=== PATIENT | female | born 1970 | race Caucasian/White ===

== ENCOUNTER 2020-01-31 02:16 | Inpatient (IN) | payer OTHER ==
[2020-01-31] MEDS ORDERED: ONDANSETRON 4 MG/2 ML VIAL ONE ×2 (02:50→03:57)
[2020-01-31] MEDS ORDERED: NA CHLORIDE 0.9% 1,000 ML ONE (02:50)
[2020-01-31 03:29] LABS: Absolute Lymphocytes (CBC) 2.5 K/uL (0.7-4.9); Hematocrit 48.2 % (36.0-45.0); Lymphocytes % 11.4 % (15.3-44.8); MPV 9.2 fL (7.6-11.3); RBC Red Blood Cell Count 5.52 M/uL (3.86-4.86)
[2020-01-31 03:31] LABS: ALT/SGPT 27 U/L (12-78); AST/SGOT 12 U/L (15-37); Albumin 3.9 g/dL (3.4-5.0); Alkaline Phosphatase 103 U/L (45-117); BUN Blood Urea Nitrogen 17 mg/dL (7-18); Bilirubin Direct < 0.1 mg/dL (0-0.2); Bilirubin Total 0.4 mg/dL (0.2-1.0); Glucose Level 290 mg/dL (74-106); Lipase 76 U/L (73-393); Potassium 4.2 mmol/L (3.5-5.1); Protein, Total 8.1 g/dL (6.4-8.2); Sodium Level 142 mmol/L (136-145)
[2020-01-31 03:32] LABS: Bicarbonate 7 mmol/L (21-32)
[2020-01-31] MEDS ORDERED: MORPHINE 2 MG/ML SYR ONE (03:56)
[2020-01-31] MEDS ORDERED: NA CHLORIDE 0.9% 3,000 ML ONE (03:57)
--- NOTE | 2020-01-31 04:28 | ER ---
Nurse's Notes [facility] Name: Roxie Eastman Age: 49 yrs Sex: Female : 1970 Arrival Date: 01/31/2020 Time: 02:17 Bed 13 Private MD: Diagnosis: Diabetes mellitus due to underlying condition with ketoacidosis without coma;Dehydration;Abdominal tenderness Presentation: 01/30 02:20 Chief complaint: Patient states: I have been nauseated and vomiting since Thursday. The jb4 pain is in my epigastric area and radiates to my right upper abdomen. 02:20 Coronavirus screen: Client denies travel out of the [place] in the last 14 days. jb4 difficulty breathing, vomiting. Client presents with at least one sign or symptom that may indicate coronavirus-19. Standard/surgical mask placed on the client. Provider contacted for isolation considerations. Ebola Screen: No symptoms or risks identified at this time. Initial Sepsis Screen: Does the patient meet any 2 criteria? RR > 20 per min. HR > 90 bpm. Yes Does the patient have a suspected source of infection? Yes: Acute abdominal pain. Risk Assessment: Do you want to hurt yourself or someone else? Patient reports no desire to harm self or others. Onset of symptoms was January 28, 2020. Transition of care: patient was not received from another setting of care. 02:20 Method Of Arrival: Wheelchair jb4 02:20 Acuity: PEARL 3 jb4 Historical: - Allergies: 02:20 Latex, Natural Rubber; jb4 - Home Meds: 02:20 Novolin 70/30 Innolet Sub-Q [Active]; Advil 200 mg Oral tab 1 tab every 4 hours jb4 [Active]; Levemir subcutaneous subcutaneous [Active]; losartan oral oral [Active]; Klonopin Oral [Active]; - PMHx: 02:20 Diabetes - IDDM; CVA; jb4 - PSHx: 02:20 Cholecystectomy; Tonsillectomy; inguinal hernia repair as infant; amputation, 5th toe jb4 left foot; - Immunization history:: Adult Immunizations up to date. - Social history:: Smoking status: Patient reports the use of cigarette tobacco products, smokes one-half pack cigarettes per day, Patient uses alcohol, but reports only rare drinking. Patient/guardian denies using street drugs. Screenin:20 Abuse screen: Denies threats or abuse. Nutritional screening: No deficits noted. jb4 Tuberculosis screening: No symptoms or risk factors identified. Fall Risk Secondary diagnosis (15 points) impaired mobility, Gait- Weak (10 pts.). Total Au Fall Scale indicates Low Risk Score (25-44 pts). Fall prevention measures have been instituted. Side Rails Up X 2 Placed close to Nursing Station Frequent Obs/Assesments occuring Family Present and informed to notify staff if they need to leave bedside As available Patient and Family Educated on Fall Prevention Program and strategies. Assessment: 02:20 General: Appears in no apparent distress. uncomfortable, Behavior is cooperative, jb4 appropriate for age, anxious. Pain: Complains of pain in epigastric area Pain radiates to anterior aspect of right lateral abdomen and anterior aspect of left lateral abdomen. Neuro: Level of Consciousness is awake, alert, obeys commands, Oriented to person, place, time, situation. Cardiovascular: Patient's skin is warm and dry. Respiratory: Airway is patent Respiratory effort is even, labored, Respiratory pattern is symmetrical, tachypnea Breath sounds are clear bilaterally. GI: Abdomen is non-distended, obese, Bowel sounds present X 4 quads. Abd is soft and non tender X 4 quads. : No signs and/or symptoms were reported regarding the genitourinary system. EENT: No signs and/or symptoms were reported regarding the EENT system. Derm: Skin is intact, Skin is pink, warm \T\ dry. Musculoskeletal: Circulation, motion, and sensation intact. Range of motion: intact in all extremities. 03:30 Reassessment: Patient appears in no apparent distress at this time. Patient and/or jb4 family updated on plan of care and expected duration. Pain level reassessed. Patient is alert, oriented x 3, equal unlabored respirations, skin warm/dry/pink. 04:30 Reassessment: Patient appears in no apparent distress at this time. Patient and/or jb4 family updated on plan of care and expected duration. Pain level reassessed. PT remains tachypneac, respirations are labored. pt denies pain, remains at the bedside. 05:30 Reassessment: Patient appears in no apparent distress at this time. No changes from jb4 previously documented assessment. Patient and/or family updated on plan of care and expected duration. Pain level reassessed. Pt admitted to ER hold. Vital Signs: 02:20 BP 152 / 53; Pulse 116; Resp 28; Temp 97.9(O); Pulse Ox 100% on R/A; Weight 120.66 kg jb4 (R); Height 5 ft. 5 in. (165.10 cm); Pain 7/10; 03:30 BP 146 / 74; Pulse 108; Resp 24; Pulse Ox 100% on R/A; jb4 05:10 BP 150 / 119; Pulse 109; Resp 24; Pulse Ox 100% on R/A; jb4 06:00 BP 126 / 108; Pulse 106; Resp 26; Pulse Ox 100% on R/A; jb4 02:20 Body Mass Index 44.26 (120.66 kg, 165.10 cm) jb4 ED Course: 02:17 Patient arrived in ED. cl3 02:19 Preet Fox, RN is Primary Nurse. jb4 02:20 Tomer Schmidt MD is Attending Physician. tw4 02:20 Arm band placed on right wrist. jb4 02:20 Patient has correct armband on for positive identification. Placed in gown. Bed in low jb4 position. Call light in reach. Side rails up X 1. Pulse ox on. NIBP on. 02:32 Triage completed. jb4 02:50 Inserted saline lock: 20 gauge in left antecubital area, using aseptic technique. Blood rv collected. 02:50 Initial lab(s) drawn, by me, sent to lab. First set of blood cultures drawn by me. rv 03:33 Notified ED physician of a critical lab result(s). CO2 of 7, WBCs of 21.9. Dr Roxana mishra notified. 04:11 CT Abd/Pelvis - IV Contrast Only In Process Unspecified. EDMS 04:26 oNrm Newton is Hospitalizing Provider. tw4 05:12 Inserted MIDLINE G20 X 10CM, RIGHT UPPER ARM. Inserted saline lock: 22 gauge in right rv hand, using aseptic technique. 07:00 No provider procedures requiring assistance completed. Patient admitted, IV remains in jb4 place. Administered Medications: 03:00 Drug: Zofran (Ondansetron) 4 mg Route: IVP; Site: left antecubital; jb4 03:30 Follow up: Response: No adverse reaction; Nausea is decreased jb4 03:00 Drug: NS 0.9% (30 ml/kg) 30 ml/kg Route: IV; Rate: bolus; Site: left antecubital; jb4 06:05 Follow up: IV Status: Infusion continued upon admission; IV Intake: 2000ml jb4 03:50 Drug: Zofran (Ondansetron) 4 mg Route: IVP; Site: left antecubital; jb4 04:20 Follow up: Response: No adverse reaction; Nausea is decreased jb4 03:52 Drug: morphine 2 mg Route: IVP; Site: left antecubital; jb4 04:20 Follow up: Response: No adverse reaction; Pain is decreased; RASS: Alert and Calm (0) jb4 03:57 Not Given (Other Intervention Used): NS 0.9% 1000 ml IV at 1 bolus Per protocol; 1000 jb4 mL bolus 05:12 Drug: Insulin Drip - (Insulin Regular Human 100 units, NS 0.9% 100 ml) {Co-Signature: 4 rv (Sid Irwin RN).} Route: IV; Rate: calculated rate; Site: right hand; 06:04 Follow up: IV Status: Infusion continued upon admission jb4 Intake: 06:05 IV: 2000ml; Total: 2000ml. jb4 Outcome: 04:28 Decision to Hospitalize by Provider. tw4 07:00 Admitted to ER Hold. Please see [facility] for further documentation. jb4 07:00 Condition: improved 07:00 Discharge instructions given to patient, family, Instructed on the need for admit. 07:50 Patient left the ED. aa5 Signatures: Dispatcher [employer] EDMS Jessenia Parr RN RN bb Promise Fleming RN RN aa5 Preet Fox RN RN jb4 Wadley, Terrence, MD MD Sid Rosario RN RN rv Lewis, Charde cl3 Sid ly Corrections: (The following items were deleted from the chart) 03:57 03:00 NS 0.9% 1000 ml IV at 1 bolus in left antecubital jb4 jb4 06:05 06:04 IV Status: Infusion continued upon admission jb4 jb4 08:02 07:55 Patient left the ED. aa5 aa5
--- NOTE | 2020-01-31 04:28 | EDPHYS ---
Physician Documentation [facility] Name: Roxie Eastman Age: 49 yrs Sex: Female : 1970 Arrival Date: 01/31/2020 Time: 02:17 Bed 13 Private MD: ED Physician Tomer Schmidt HPI: 01/30 03:02 This 49 yrs old Female presents to ER via Wheelchair with complaints of tw4 Shortness Of Breath, Vomiting. 03:02 The patient has shortness of breath at rest. Onset: The symptoms/episode began/occurred tw4 just prior to arrival, today. Duration: The symptoms are continuous, and are unchanged since they started. The patient's shortness of breath has no apparent modifying factors. Severity of symptoms: At their worst the symptoms were moderate in the emergency department the symptoms are unchanged. Historical: - Allergies: 02:20 Latex, Natural Rubber; jb4 - Home Meds: 02:20 Novolin 70/30 Innolet Sub-Q [Active]; Advil 200 mg Oral tab 1 tab every 4 hours jb4 [Active]; Levemir subcutaneous subcutaneous [Active]; losartan oral oral [Active]; Klonopin Oral [Active]; - PMHx: 02:20 Diabetes - IDDM; CVA; jb4 - PSHx: 02:20 Cholecystectomy; Tonsillectomy; inguinal hernia repair as infant; amputation, 5th toe jb4 left foot; - Immunization history:: Adult Immunizations up to date. - Social history:: Smoking status: Patient reports the use of cigarette tobacco products, smokes one-half pack cigarettes per day, Patient uses alcohol, but reports only rare drinking. Patient/guardian denies using street drugs. ROS: 03:02 Constitutional: Negative for fever, chills, and weight loss, Eyes: Negative for injury, tw4 pain, redness, and discharge, Cardiovascular: Negative for chest pain, palpitations, and edema, Abdomen/GI: Negative for abdominal pain, nausea, vomiting, diarrhea, and constipation, Back: Negative for injury and pain, MS/Extremity: Negative for injury and deformity, Skin: Negative for injury, rash, and discoloration, Neuro: Negative for headache, weakness, numbness, tingling, and seizure. 03:02 Respiratory: Positive for shortness of breath, Negative for cough, dyspnea on exertion, hemoptysis, orthopnea, pleurisy. Exam: 03:02 Constitutional: This is a well developed, well nourished patient who is awake, alert, tw4 and in no acute distress. Head/Face: Normocephalic, atraumatic. Chest/axilla: Normal chest wall appearance and motion. Nontender with no deformity. No lesions are appreciated. Cardiovascular: Regular rate and rhythm with a normal S1 and S2. No gallops, murmurs, or rubs. Normal PMI, no JVD. No pulse deficits. Abdomen/GI: Soft, non-tender, with normal bowel sounds. No distension or tympany. No guarding or rebound. No evidence of tenderness throughout. Back: No spinal tenderness. No costovertebral tenderness. Full range of motion. Skin: Warm, dry with normal turgor. Normal color with no rashes, no lesions, and no evidence of cellulitis. MS/ Extremity: Pulses equal, no cyanosis. Neurovascular intact. Full, normal range of motion. Neuro: Awake and alert, GCS 15, oriented to person, place, time, and situation. Cranial nerves II-XII grossly intact. Motor strength 5/5 in all extremities. Sensory grossly intact. Cerebellar exam normal. Normal gait. Vital Signs: 02:20 BP 152 / 53; Pulse 116; Resp 28; Temp 97.9(O); Pulse Ox 100% on R/A; Weight 120.66 kg jb4 (R); Height 5 ft. 5 in. (165.10 cm); Pain 7/10; 03:30 BP 146 / 74; Pulse 108; Resp 24; Pulse Ox 100% on R/A; jb4 05:10 BP 150 / 119; Pulse 109; Resp 24; Pulse Ox 100% on R/A; jb4 06:00 BP 126 / 108; Pulse 106; Resp 26; Pulse Ox 100% on R/A; jb4 02:20 Body Mass Index 44.26 (120.66 kg, 165.10 cm) 4 MDM: 02:21 Patient medically screened. tw4 01/30 02:22 Order name: Basic Metabolic Panel 4 01/30 02:22 Order name: CBC with Diff 4 01/30 02:22 Order name: Hepatic Function; Complete Time: 04:25 tw4 01/30 02:22 Order name: Lipase; Complete Time: 03:33 4 01/30 02:22 Order name: COVID-19 4 01/30 02:22 Order name: Flu; Complete Time: 04:25 4 01/30 02:22 Order name: Strep; Complete Time: 04:25 4 01/30 02:22 Order name: Basic Metabolic Panel; Complete Time: 03:33 EDMS 01/30 03:33 Interpretation: Normal except: GFR 36; CRE 1.53; GLUC 290; CO2 7; CL 111. [facility] 01/30 02:22 Order name: CBC with Automated Diff EDMS 01/30 03:34 Interpretation: Normal except: WBC 21.9; RBC 5.52; HGB 15.4; HCT 48.2; MCV 87.2; LYM% tw4 11.4; SAUMYA% 84.2; PLT 428; MCHC 31.9; NEUT A 18.4. 01/30 02:54 Order name: Blood Culture Adult (2) [facility] 01/30 02:54 Order name: Lactate; Complete Time: 03:34 [facility] 01/30 03:34 Interpretation: Within normal limits. [facility] 01/30 03:33 Order name: Acetone, Serum; Complete Time: 04:24 [facility] 01/30 04:22 Order name: Throat Culture [facility] 01/30 04:25 Order name: ABG; Complete Time: 05:19 [facility] 01/30 03:21 Order name: CT Abd/Pelvis - IV Contrast Only [facility] 01/30 04:28 Order name: CXR XRAY [facility] 01/30 05:21 Order name: Glucose, Ancillary Testing; Complete Time: 05:21 [facility] 01/30 05:22 Order name: Manual Differential EDND 01/30 06:02 Order name: Urine Dipstick--Ancillary (enter results) 2 01/30 06:04 Order name: SARS-COV-2 RT PCR EDND 01/30 06:08 Order name: Urine Dipstick-Ancillary [facility] 01/30 06:15 Order name: Glucose, Ancillary Testing EDND 01/30 07:15 Order name: Glucose, Ancillary Testing EDND 01/30 07:52 Order name: RAD EDND 01/30 02:22 Order name: IV Saline Lock; Complete Time: 02:36 [facility] 01/30 02:22 Order name: Labs collected and sent; Complete Time: 02:36 4 01/30 02:22 Order name: Document PUI#; Complete Time: 02:36 4 01/30 02:22 Order name: Droplet/Contact Precautions; Complete Time: 02:36 4 01/30 02:22 Order name: Notify [facility] [phone]/ ; Complete Time: 02:36 4 01/30 02:22 Order name: O2 Per Protocol; Complete Time: 02:36 4 01/30 05:10 Order name: Urine Dipstick-Ancillary (obtain specimen); Complete Time: 06:04 la1 Administered Medications: 03:00 Drug: Zofran (Ondansetron) 4 mg Route: IVP; Site: left antecubital; jb4 03:30 Follow up: Response: No adverse reaction; Nausea is decreased jb4 03:00 Drug: NS 0.9% (30 ml/kg) 30 ml/kg Route: IV; Rate: bolus; Site: left antecubital; jb4 06:05 Follow up: IV Status: Infusion continued upon admission; IV Intake: 2000ml jb4 03:50 Drug: Zofran (Ondansetron) 4 mg Route: IVP; Site: left antecubital; jb4 04:20 Follow up: Response: No adverse reaction; Nausea is decreased jb4 03:52 Drug: morphine 2 mg Route: IVP; Site: left antecubital; jb4 04:20 Follow up: Response: No adverse reaction; Pain is decreased; RASS: Alert and Calm (0) jb4 03:57 Not Given (Other Intervention Used): NS 0.9% 1000 ml IV at 1 bolus Per protocol; 1000 jb4 mL bolus 05:12 Drug: Insulin Drip - (Insulin Regular Human 100 units, NS 0.9% 100 ml) {Co-Signature: jb4 rv (Sid Irwin RN).} Route: IV; Rate: calculated rate; Site: right hand; 06:04 Follow up: IV Status: Infusion continued upon admission jb4 Disposition: 01/31/20 04:28 Hospitalization ordered by Norm Newton for Inpatient Admission. Preliminary diagnosis are Diabetes mellitus due to underlying condition with ketoacidosis without coma, Dehydration, Abdominal tenderness. - Bed requested for Intensive Care Unit. - Status is Inpatient Admission. aa5 - Condition is Fair. - Problem is an ongoing problem. - Symptoms have worsened. Signatures: Dispatcher [employer] EDPromise Keith, RN RN aa5 Nadeem Connelly, TRANSPORTATION AGENT-C TRANSPORTATION AGENT-Cla1 Preet Fox RN RN jb4 Tomer Schmidt MD MD tw4 Sid Irwin RN rv Corrections: (The following items were deleted from the chart) 07:55 04:28 Hospitalization Ordered by Norm Newton for Inpatient Admission. Preliminary aa5 diagnosis is Diabetes mellitus due to underlying condition with ketoacidosis without coma; Dehydration; Abdominal tenderness. Bed requested for Intensive Care Unit. Status is Inpatient Admission. Condition is Fair. Problem is an ongoing problem. Symptoms have worsened. tw4
[2020-01-31 04:52] LABS: Arterial Blood Carboxyhemoglob 0.9 % (0-1.5); Blood Gas Oxyhemoglobin 95.2 % (94-97); Blood O2 Saturation 97.3 % (92-98.5)
[2020-01-31] MEDS ORDERED: NA CHLORIDE 0.9% 100 ML IV ONE (05:03)
[2020-01-31] MEDS ORDERED: INSULIN -REGULAR HUMAN 50 UNIT/0.5 ML ML ONE (05:03)
[2020-01-31 05:22] LABS: Blood Morphology Comment NOT SEEN (NOT SEEN); Platelet Estimate INCR
[2020-01-31] MEDS ORDERED: INSULIN -REGULAR HUMAN 100 UNIT in NA CHLORIDE 0.9% 100 ML IV SCH (05:28)
--- NOTE | 2020-01-31 05:31 | P.HP ---
Certification for Inpatient Patient admitted to: Inpatient With expected LOS: >2 Midnights Patient will require the following post-hospital care: None Practitioner: I am a practitioner with admitting privileges, knowledge of patient current condition, hospital course, and medical plan of care. Services: Services provided to patient in accordance with Admission requirements found in Title 42 Section 412.3 of the Code of Federal Regulations <Nadeem Connelly - Last Filed: 01/31/20 05:27> Patient History Date of Service: 01/31/20 Primary Care Provider: Dr. Romano Reason for admission: DKA History of Present Illness: 49-year-old female with history of diabetes mellitus type 2-insulin dependent, hypertension, CVA presents emergency department for malaise, with a large eating, vomiting, abdominal pain. Patient reports that she has been out of her insulin for the last few days. Vomiting started today. Patient with Kussmaul respirations, appears very dry. Lab significant for anion gap of 24, sodium 142, potassium 4.2, CO2 is 7, creatinine 1.53 GFR 36, BUN 17. CBC shows elevated white blood cell count at 21.9, hemoglobin and hematocrit both elevated at 15.4 and 40[address] abdomen pelvis due to a abdominal pain which did not show any acute findings, chest x-ray unremarkable. Urinalysis pending the patient is without any urinary symptoms. Lactate 2.0, believe that leukocytosis is combination of volume contraction and reactive leukocytosis. Patient started on insulin drip in the emergency department, given 2 L normal saline bolus. ED provider wishes to admit patient for further evaluation and management. When I saw the patient in the emergency department she is awake, alert, oriented x3. Patient tachypneic with Kussmaul respirations, skin extremely dry. Patient mildly tachycardic heart rate 110 sinus rhythm. patient be admitted to the intensive care unit for further management. 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 Psychosocial/ Personal History: Patient lives with her - Family History Father -: GI disease - Social History Smoking Status: Current every day smoker Counseled patient to stop smoking for: less than 10 minutes Smoking therapy provided: Yes Alcohol use: Yes CD- Drugs: No Caffeine use: Yes Place of Residence: Home <Nadeem Connelly - Last Filed: 01/31/20 05:27> Date of Service: 01/31/20 <raiza yeung - Last Filed: 01/31/20 15:35> Allergies latex Allergy (Verified 01/13/17 21:31) Hives Home Medications: Metformin HCl 1,000 mg PO BIDWM 01/13/17 Clopidogrel Bisulfate [Plavix*] 75 mg PO DAILY #30 tablet 01/15/17 Cholecalciferol (Vitamin D3) [Vitamin D3] 5,000 unit PO DAILY 01/31/20 Empagliflozin [Jardiance] 25 mg PO DAILY 01/31/20 Gabapentin 600 mg PO BEDTIME 01/31/20 Insulin Glargine,Hum.rec.anlog [Lantus Solostar] 50 units SQ DAILY 01/31/20 Insulin Lispro [Humalog Kwikpen U-100] 5 units SQ TID 01/31/20 Losartan Potassium 50 mg PO DAILY 01/31/20 Review of Systems 10-point ROS is otherwise unremarkable General: Weakness, Malaise Gastrointestinal: Nausea, Vomiting, Abdominal Pain <Ndaeem Connelly - Last Filed: 01/31/20 05:27> Physical Examination - Physical Exam General: Alert, In no apparent distress, Oriented x3 HEENT: Atraumatic, Normocephalic, PERRLA, Other (Mucous membranes dry) Neck: Supple Respiratory: Clear to auscultation bilaterally, Normal air movement Cardiovascular: No edema, Regular rate/rhythm (Sinus tachycardia rate 110), Normal S1 S2 Capillary refill: <2 Seconds Gastrointestinal: Normal bowel sounds, Soft and benign Musculoskeletal: No contractures, No erythema, No tenderness Integumentary: No significant lesion, No tenderness/swelling, No erythema Neurological: Normal speech, Normal strength at 5/5 x4 extr, Normal tone, Sensation intact - Studies Laboratory Data (last 24 hrs) 01/31/20 02:50: WBC 21.9 H*, Hgb 15.4 H, Hct 48.2 H, Plt Count 428 H 01/31/20 02:50: Sodium 142, Potassium 4.2, BUN 17, Creatinine 1.53 H, Glucose 290 H, Total Bilirubin 0.4, AST 12 L, ALT 27, Alkaline Phosphatase 103, Lipase 76 Microbiology Data (last 24 hrs): 01/31/20 03:05 Throat Group A Streptococcus Rapid Screen - Final 01/31/20 03:05 Nasopharnyx Influenza Type A Antigen Screen - Final 01/31/20 03:05 Nasopharnyx Influenza Type B Antigen Screen - Final <Nadeem Connelly - Last Filed: 01/31/20 05:27> - Studies Laboratory Data (last 24 hrs) 01/31/20 02:50: WBC 21.9 H*, Hgb 15.4 H, Hct 48.2 H, Plt Count 428 H 01/31/20 02:50: Sodium 142, Potassium 4.2, BUN 17, Creatinine 1.53 H, Glucose 290 H, Total Bilirubin 0.4, AST 12 L, ALT 27, Alkaline Phosphatase 103, Lipase 76 Microbiology Data (last 24 hrs): 01/31/20 03:05 Throat Group A Streptococcus Rapid Screen - Final 01/31/20 03:05 Nasopharnyx Influenza Type A Antigen Screen - Final 01/31/20 03:05 Nasopharnyx Influenza Type B Antigen Screen - Final <raiza yeung - Last Filed: 01/31/20 15:35> Assessment and Plan - Plan Assessment Diabetes mellitus type 2-insulin dependent complicated with diabetic ketoacidosis Hypertension History of CVA Tobacco abuse Plan Diabetes mellitus type 2-insulin dependent complicated with diabetic ketoacidosis: Admit ICU, continue fluid bolus followed by maintenance fluids. Q.4h BMP. Hourly blood glucose levels. Lipid panel and A1c levels ordered. Urine and blood cultures ordered. No clear sign of infection at this time, doubt sepsis. No antibiotics initiated at this time. DVT prophylaxis Lovenox 40 mg subcutaneous once daily. Hypertension: Obtain and continue home medications as appropriate peer History of CVA: Obtain and continue home medications as appropriate peer Tobacco abuse: Counseled on need for tobacco cessation, will provide patient with nicotine patch. Discharge Plan: Home Plan to discharge in: Greater than 2 days - Advance Directives Does patient have a Living Will: No Does patient have a Durable POA for Healthcare: No - Code Status/Comfort Care Code Status Assessed: Yes (Full code) Critical Care: No Time Spent Managing Pts Care (In Minutes): 55 <Nadeem Connelly - Last Filed: 01/31/20 05:27> Physician Review: Patient Assessed, Agree with Above Assessment and Plan Physician Review Additional Text: DKA secondary to noncompliance insulin. Severe metabolic acidosis. Hypernatremia Plan: Aggressive hydration with IV fluids. Insulin drip. Monitor BMP q.4 hrs per DKA protocol. <raiza yeung - Last Filed: 01/31/20 15:35>
[2020-01-31 06:07] LABS: Urine Blood 2+ (NEG); Urine Glucose 1+ (NEG); Urine Protein 2+ (NEG)
[2020-01-31 06:15] VITALS: BMI 41.0
[2020-01-31] MEDS: NACHLORIDE 0.45% 1,000 ML IV SCH ×5 (06:40→21:28)
[2020-01-31] MEDS ORDERED: NACHLORIDE 0.45% 1,000 ML IV ONE (06:50)
--- NOTE | 2020-01-31 07:51 | RAD REPORT ---
EXAM DESCRIPTION: Hammad Single View01/31/2020 5:10 am CLINICAL HISTORY: Shortness of breath COMPARISON: 2015 FINDINGS: The lungs appear clear of acute infiltrate. The heart is normal size IMPRESSION: No acute abnormalities displayed
[2020-01-31] MEDS ORDERED: INFLUENZA VACCINE (for 3y+) 0.5 ML DOSE IMVAC ONE (08:00)
[2020-01-31] MEDS ORDERED: PNEUMOCOCCAL VACCINE 0.5 ML IMVAC ONE (08:00)
[2020-01-31 08:17] LABS: BUN Blood Urea Nitrogen 15 mg/dL (7-18); Glucose Level 197 mg/dL (74-106); HDL Cholesterol 34 mg/dL (40-60); LDL Cholesterol, Calculated 53 (<130); Potassium 3.8 mmol/L (3.5-5.1); Sodium Level 147 mmol/L (136-145)
[2020-01-31 08:19] LABS: Bicarbonate 6 mmol/L (21-32)
[2020-01-31] MEDS: D5 0.45 NS 1,000 ML IV SCH ×2 (08:23→12:08)
[2020-01-31] MEDS: ENOXAPARIN 40 MG/0.4 ML SQ SCH (08:23)
[2020-01-31] MEDS: NICOTINE 21 MG/PAT TD SCH (08:24)
[2020-01-31] MEDS ORDERED: ENOXAPARIN 40 MG/0.4 ML SQ ONE (08:32)
[2020-01-31] MEDS ORDERED: D5 0.45 NS 1,000 ML IV ONE (08:33)
[2020-01-31] MEDS ORDERED: KCL 20 MEQ/100 mL IVPB 20 MEQ/100 ML BAG IV SCH (10:00)
[2020-01-31] MEDS ORDERED: KCL 20 MEQ/100 mL IVPB 20 MEQ/100 ML BAG IV ONE (10:35)
[2020-01-31 12:21] LABS: BUN Blood Urea Nitrogen 14 mg/dL (7-18); Glucose Level 157 mg/dL (74-106); Magnesium 2.3 mg/dL (1.8-2.4); Phosphorus 2.6 mg/dL (2.5-4.9); Potassium 4.3 mmol/L (3.5-5.1); Sodium Level 145 mmol/L (136-145)
[2020-01-31 12:34] LABS: Bicarbonate 8 mmol/L (21-32)
[2020-01-31] MEDS: D5W 1,000 ML with NA BICARB 8.4% 100 MEQ IV SCH ×4 (12:59→20:30)
--- NOTE | 2020-01-31 14:40 | RAD REPORT ---
EXAM DESCRIPTION: CT - Abdomen Pelvis W Contrast - 01/31/2020 7:08 am CLINICAL HISTORY: The patient is 49 years old and is Female; ABD PAIN TECHNIQUE: Axial computed tomography images of the abdomen and pelvis with intravenous contrast. S agittal and coronal reformatted images were created and reviewed. This CT exam was performed using one or more of the following dose reduction techniques: automated exposure control, adjustment of t he mA and/or kV according to patient size, and/or use of iterative reconstruction technique. COMPARISON: No relevant prior studies available. FINDINGS: LUNG BASES: Unremarkable. No mass. No consolidation. ABDOMEN: LIVER: The liver is diffusely fatty. GALLBLADDER AND BILE DUCTS: Surgical clips are present in the right upper quadrant, consistent wi th previous cholecystectomy. PANCREAS: The pancreas is atrophic. SPLEEN: Unremarkable. ADRENALS: Unremarkable. No mass. KIDNEYS AND URETERS: Unremarkable. The kidneys enhance symmetrically. No obstructing renal or ure teral calculus is seen. No hydronephrosis or hydroureter. No perinephric fluid or stranding. STOMACH AND BOWEL: The stomach is distended with fluid. The small bowel is relatively normal in c aliber. A moderate amount stool is present throughout the colon. A few scattered colonic diverticula are present without surrounding inflammation. There is no mucosal thickening or evidence of bowel obs truction. PELVIS: APPENDIX: The appendix is normal in caliber without surrounding inflammation. BLADDER: Unremarkable. No mass. REPRODUCTIVE: Unremarkable as visualized. ABDOMEN and PELVIS: INTRAPERITONEAL SPACE: Unremarkable. No free air. No significant fluid collection. BONES/JOINTS: No acute fracture. Minimal degenerative change of the spine is present. SOFT TISSUES: The soft tissues are normal. VASCULATURE: Unremarkable. No abdominal aortic aneurysm. LYMPH NODES: Unremarkable. No enlarged lymph nodes. IMPRESSION 1. Colonic diverticulosis. 2. Normal appendix. Electronically signed by: Brianne Doss MD 01/31/2020 4:25 AM BARRATTE OPERATOR Due to temporary technical issues with the PACS/Fluency reporting system, reports are being signed by the in house radiologists without review as a courtesy to insure prompt reporting. The interpreting radiologist is fully responsible for the content of the report.
--- NOTE | 2020-01-31 15:37 | P.PN ---
Date of Service: 01/31/20 Patient seen and examined. She is awake and alert. Mild distress noted. Serum bicarb level is still low. Continue insulin drip. IV fluids changed to D5 + bicarb. Continue to monitor BMP q.4 hrs.
[2020-01-31 15:54] LABS: BUN Blood Urea Nitrogen 13 mg/dL (7-18); Glucose Level 114 mg/dL (74-106); Potassium 3.6 mmol/L (3.5-5.1); Sodium Level 145 mmol/L (136-145)
[2020-01-31 15:55] LABS: Bicarbonate 10 mmol/L (21-32)
[2020-01-31] MEDS: CEFTRIAXONE/SWI 1gm 1 GM/10 ML SYR IV SCH (20:53)
[2020-01-31] MEDS ORDERED: CEFTRIAXONE/SWI 1gm 1 GM/10 ML SYR ONE (21:01)
[2020-01-31 21:27] LABS: Potassium 3.3 mmol/L (3.5-5.1)
[2020-01-31] MEDS: KCL 20 MEQ/100 mL IVPB 20 MEQ/100 ML BAG IV SCH (22:53)
[2020-01-31] MEDS ORDERED: KCL 20 MEQ/100 mL IVPB 40 MEQ/200 ML BAG IV ONE (23:02)
[2020-01-31] MEDS ORDERED: FAMOTIDINE 20 MG/2 ML VIAL IV ONE ×2 (23:33→23:45)
[2020-02-01] MEDS: KCL 20 MEQ/100 mL IVPB 20 MEQ/100 ML BAG IV SCH ×3 (00:33→05:01)
[2020-02-01 01:25] LABS: Potassium 3.1 mmol/L (3.5-5.1)
[2020-02-01] MEDS: NACHLORIDE 0.45% 1,000 ML IV SCH ×3 (01:28→18:05)
[2020-02-01] MEDS ORDERED: D5 0.45 NS 1,000 ML IV ONE (02:57)
[2020-02-01] MEDS ORDERED: KCL 20 MEQ/100 mL IVPB 20 MEQ/100 ML BAG IV ONE ×2 (02:57→02:59)
[2020-02-01] MEDS: D5 0.45 NS 1,000 ML IV SCH ×2 (03:12→09:40)
[2020-02-01] MEDS ORDERED: MORPHINE 2 MG/ML SYR IV ONE (03:14)
[2020-02-01] MEDS: ONDANSETRON 4 MG/2 ML VIAL IV PRN (03:22)
[2020-02-01] MEDS ORDERED: ONDANSETRON 4 MG/2 ML VIAL ONE (03:34)
[2020-02-01] MEDS ORDERED: MORPHINE 2 MG/ML SYR ONE (03:34)
[2020-02-01 05:32] LABS: Absolute Lymphocytes (CBC) 1.9 K/uL (0.7-4.9); Hematocrit 39.2 % (36.0-45.0); Lymphocytes % 15.5 % (15.3-44.8); MPV 8.9 fL (7.6-11.3); RBC Red Blood Cell Count 4.68 M/uL (3.86-4.86)
[2020-02-01 05:40] LABS: Magnesium 2.1 mg/dL (1.8-2.4); Potassium 3.5 mmol/L (3.5-5.1)
[2020-02-01 06:39] LABS: Blood Morphology Comment NOT SEEN (NOT SEEN); Platelet Estimate ADEQ; White Blood Cell Scan OK (OK)
[2020-02-01] MEDS ORDERED: POTASSIUM PHOS IN 0.9 % NACL 15 MMOL/250 ML BAG IV ONE (07:30)
[2020-02-01] MEDS ORDERED: NICOTINE 21 MG/PAT TD ONE (07:49)
[2020-02-01] MEDS ORDERED: FAMOTIDINE 20 MG/2 ML VIAL IV ONE (07:50)
[2020-02-01] MEDS ORDERED: ENOXAPARIN 40 MG/0.4 ML SQ ONE (07:50)
[2020-02-01] MEDS: FAMOTIDINE 20 MG/2 ML VIAL IV SCH ×2 (08:01→20:55)
[2020-02-01] MEDS: ENOXAPARIN 40 MG/0.4 ML SQ SCH (08:01)
[2020-02-01] MEDS: NICOTINE 21 MG/PAT TD SCH (08:01)
[2020-02-01] MEDS: CEFTRIAXONE/SWI 1gm 1 GM/10 ML SYR IV SCH (08:22)
[2020-02-01] MEDS ORDERED: CEFTRIAXONE/SWI 1gm 1 GM/10 ML SYR ONE (08:27)
[2020-02-01 09:50] LABS: Potassium 3.3 mmol/L (3.5-5.1)
[2020-02-01] MEDS ORDERED: GLUCAGON 1 MG/VIAL IM PRN (09:55)
[2020-02-01] MEDS ORDERED: D50W 25 GM/50 ML SYRINGE/VIAL IV PRN (09:55)
[2020-02-01] MEDS: INSULIN GLARGINE 100 UNITS/ML SQ SCH (10:13)
--- NOTE | 2020-02-01 11:28 | P.PN ---
Subjective Date of Service: 02/01/20 Primary Care Provider: Dr. Romano Chief Complaint: DKA Patient states she feels much better today. She was complaining of hunger. He also reports soreness in her throat from repeated vomiting. Anion gap has closed. Leukocytosis has also significantly decreased and almost resolved. UA: No evidence of UTI. Physical Examination - Vital Signs Temperature: 98.2 F Blood Pressure: 110/78 Pulse: 92 Respirations: 20 Pulse Ox (%): 98 - Physical Exam General: Alert, In no apparent distress HEENT: Mucous membr. moist/pink Neck: Supple, JVD not distended Respiratory: Clear to auscultation bilaterally, Normal air movement Cardiovascular: No edema, Regular rate/rhythm, Normal S1 S2 Capillary refill: <2 Seconds Gastrointestinal: Normal bowel sounds, Soft and benign, Non-distended, No tenderness Musculoskeletal: No swelling, No erythema Integumentary: No rashes Neurological: Other (Nonfocal.) Assessment And Plan - Current Problems (Diagnosis) (1) DKA (diabetic ketoacidoses) Current Visit: Yes Status: Acute (2) Metabolic acidosis Current Visit: Yes Status: Acute (3) Morbid obesity with BMI of 40.0-44.9, adult Current Visit: No Status: Chronic - Plan Anion gap closed. Transition to subcutaneous insulin-Lantus insulin and insulin sliding scale. Start ADA diet. Continue IV hydration Continue empiric IV Rocephin Blood cultures: No growth. Urine culture: Mixed growth. Continue to monitor blood chemistry.
[2020-02-01] MEDS: INSULIN -REGULAR HUMAN 50 UNIT/0.5 ML ML SQ SCH ×3 (12:09→20:53)
[2020-02-01] MEDS ORDERED: INSULIN -REGULAR HUMAN 50 UNIT/0.5 ML ML ONE (12:15)
[2020-02-01] MEDS ORDERED: PHENOL 1.4% ORAL SPRAY 180ML MM PRN (12:28)
[2020-02-01 13:25] LABS: Potassium 3.6 mmol/L (3.5-5.1)
[2020-02-01] MEDS: GABAPENTIN 300 MG CAP PO SCH (20:54)
[2020-02-02 00:56] LABS: Potassium 3.1 mmol/L (3.5-5.1)
[2020-02-02] MEDS: POTASSIUM 25 MEQ EFFERV TAB PO ONE ×2 (01:25→01:51)
[2020-02-02] MEDS: NACHLORIDE 0.45% 1,000 ML IV SCH ×3 (01:52→21:31)
[2020-02-02] MEDS: ONDANSETRON 4 MG/2 ML VIAL IV PRN (05:50)
[2020-02-02 06:08] LABS: Absolute Lymphocytes (CBC) 2.4 K/uL (0.7-4.9); Basophils % 2.2 % (0-1.3); Hematocrit 42.4 % (36.0-45.0); Lymphocytes % 34.2 % (15.3-44.8); MPV 8.8 fL (7.6-11.3)
[2020-02-02 06:48] LABS: Magnesium 2.1 mg/dL (1.8-2.4); Phosphorus 1.5 mg/dL (2.5-4.9)
[2020-02-02] MEDS: INSULIN -REGULAR HUMAN 50 UNIT/0.5 ML ML SQ SCH ×4 (07:30→20:54)
[2020-02-02] MEDS: NICOTINE 21 MG/PAT TD SCH (09:00)
[2020-02-02] MEDS: PANTOPRAZOLE 40MG TABLET PO SCH (09:02)
[2020-02-02] MEDS: CLOPIDOGREL 75 MG TABLET PO SCH (09:03)
[2020-02-02] MEDS: INSULIN GLARGINE 100 UNITS/ML SQ SCH (09:03)
[2020-02-02] MEDS: FAMOTIDINE 20 MG/2 ML VIAL IV SCH (09:03)
[2020-02-02] MEDS: VITAMIN D 5,000 UNIT CAP PO SCH (09:03)
[2020-02-02] MEDS: ENOXAPARIN 40 MG/0.4 ML SQ SCH (09:03)
[2020-02-02] MEDS: CEFTRIAXONE/SWI 1gm 1 GM/10 ML SYR IV SCH (09:04)
[2020-02-02 09:31] LABS: Potassium 3.6 mmol/L (3.5-5.1)
[2020-02-02] MEDS ORDERED: POTASSIUM PHOS IN 0.9 % NACL 15 MMOL/250 ML BAG IV ONE (10:00)
--- NOTE | 2020-02-02 10:36 | P.PN ---
Subjective Date of Service: 02/02/20 Primary Care Provider: Dr. Romano Chief Complaint: DKA Subjective: Improving (Patient is improving overall except for mild acid reflux symptoms and abdominal discomfort. Her oral intake is still suboptimal.) Physical Examination - Vital Signs Temperature: 97.2 F Blood Pressure: 112/61 Pulse: 83 Respirations: 16 Pulse Ox (%): 98 - Physical Exam General: In no apparent distress, Cooperative, Obese HEENT: Atraumatic, Normocephalic, EOMI Neck: Supple Respiratory: Clear to auscultation bilaterally, Normal air movement Gastrointestinal: Normal bowel sounds, Soft and benign, Non-distended, No tenderness Musculoskeletal: No clubbing, No swelling, No contractures, No erythema, No tenderness, No warmth Neurological: Normal speech, Sensation intact, Normal affect Assessment & Plan Physician Review: Patient Assessed, Agree with Above Assessment and Plan Physician Review Additional Text: Assessment Patient is a 49 year old female with known PMH of insulin dependent diabetes mellitus admitted to the hospital for DKA secondary to insulin noncompliance. She is off insulin drip and has been transitioned to lantus. Her oral intake is still suboptimal but most importantly, she is still has some moderate metabolic acidosis. DKA Severe metabolic acidosis. UTI Hypernatremia Hypophosphatemia Plan: Continue lantus 30 units daily Titrate to home dose of 50 units daily if oral intake improves Continue insulin sliding scale Continue monitoring BMP q 4 hours as per DKA protocol. Continue ceftriaxone for UTI Replace phosphorus Anticipating discharge tomorrow if significant improvement of metabolic acidosis and oral intake Patient will not need outpatient antibiotics upon discharge
[2020-02-02] MEDS ORDERED: SODIUM PHOSPHATE 30 MM in NA CHLORIDE 0.9% 500 ML IV ONE (11:00)
[2020-02-02] MEDS: GABAPENTIN 300 MG CAP PO SCH (20:53)
[2020-02-03] MEDS: NACHLORIDE 0.45% 1,000 ML IV SCH (05:38)
[2020-02-03 06:07] LABS: Absolute Lymphocytes (CBC) 2.4 K/uL (0.7-4.9); Basophils % 1.2 % (0-1.3); MPV 8.6 fL (7.6-11.3); RBC Red Blood Cell Count 4.25 M/uL (3.86-4.86)
[2020-02-03 06:27] LABS: Magnesium 2.2 mg/dL (1.8-2.4); Phosphorus 1.9 mg/dL (2.5-4.9)
[2020-02-03] MEDS: PANTOPRAZOLE 40MG TABLET PO SCH (06:30)
[2020-02-03] MEDS ORDERED: GLUCAGON 1 MG/VIAL IM PRN (06:39)
[2020-02-03] MEDS ORDERED: D50W 25 GM/50 ML SYRINGE/VIAL IV PRN (06:39)
[2020-02-03 06:51] LABS: Potassium 3.1 mmol/L (3.5-5.1)
[2020-02-03] MEDS: INSULIN -REGULAR HUMAN 50 UNIT/0.5 ML ML SQ SCH ×2 (07:30→11:30)
[2020-02-03] MEDS ORDERED: INSULIN GLARGINE 100 UNITS/ML SQ SCH (08:00)
--- NOTE | 2020-02-03 08:35 | P.DS ---
Admission Date: 01/31/20 Discharge Date: 02/03/20 Primary Care Provider: Dr. Romano Disposition: ROUTINE DISCHARGE Discharge Condition: GOOD Reason for Admission: DKA Brief History of Present Illness: Please refer to H&P Hospital Course: Patient is a 49 year old female with known PMH of insulin dependent diabetes mellitus admitted to the hospital for DKA secondary to insulin noncompliance. She is off insulin drip and has been transitioned to lantus. She is now medically cleared. She will go home on 35 units of lantus instead of her usual dose of 50 units. Vital Signs/Physical Exam: Temp Pulse Resp BP Pulse Ox 97.5 F 78 16 134/69 97 02/03/20 04:00 02/03/20 04:00 02/03/20 04:00 02/03/20 04:00 02/03/20 04:00 General: In no apparent distress, Cooperative, Obese HEENT: Atraumatic, Normocephalic, EOMI Neck: Supple Respiratory: Clear to auscultation bilaterally, Normal air movement Cardiovascular: No edema, Normal pulses, Regular rate/rhythm, Normal S1 S2 Gastrointestinal: Normal bowel sounds, Soft and benign, Non-distended, No tenderness Musculoskeletal: No clubbing, No swelling, No contractures, No erythema, No tenderness, No warmth Neurological: Normal speech, Sensation intact, Normal affect Laboratory Data at Discharge: WBC 7.6 K/uL (4.3-10.9) 02/03/20 05:12 Hgb 12.2 g/dL (12.0-15.0) 02/03/20 05:12 Hct 35.0 % (36.0-45.0) L D 02/03/20 05:12 Plt Count 225 K/uL (152-406) D 02/03/20 05:12 Sodium 146 mmol/L (136-145) H 02/03/20 05:12 Potassium 3.1 mmol/L (3.5-5.1) L 02/03/20 05:12 BUN 5 mg/dL (7-18) L 02/03/20 05:12 Creatinine 0.72 mg/dL (0.55-1.3) 02/03/20 05:12 Glucose 110 mg/dL (74-106) H 02/03/20 05:12 Phosphorus 1.9 mg/dL (2.5-4.9) L 02/03/20 05:12 Magnesium 2.2 mg/dL (1.8-2.4) 02/03/20 05:12 Total Bilirubin 0.4 mg/dL (0.2-1.0) 01/31/20 02:50 AST 12 U/L (15-37) L 01/31/20 02:50 ALT 27 U/L (12-78) 01/31/20 02:50 Alkaline Phosphatase 103 U/L (45-117) 01/31/20 02:50 Triglycerides 274 mg/dL (<150) H 01/31/20 07:40 Cholesterol 142 mg/dL (<200) 01/31/20 07:40 HDL Cholesterol 34 mg/dL (40-60) L 01/31/20 07:40 Cholesterol/HDL Ratio 4.18 01/31/20 07:40 Lipase 76 U/L (73-393) 01/31/20 02:50 Home Medications: Metformin HCl 1,000 mg PO BIDWM 01/13/17 Clopidogrel Bisulfate [Plavix*] 75 mg PO DAILY #30 tablet 01/15/17 Cholecalciferol (Vitamin D3) [Vitamin D3] 5,000 unit PO DAILY 01/31/20 Empagliflozin [Jardiance] 25 mg PO DAILY 01/31/20 Gabapentin 600 mg PO BEDTIME 01/31/20 Insulin Lispro [Humalog Kwikpen U-100] 5 units SQ TID 01/31/20 Losartan Potassium 50 mg PO DAILY 01/31/20 Insulin Glargine Human [Lantus*] 35 units SQ DAILY WITH BREAKFAST ml 02/03/20 Followup: Ashu Romano MD [Primary Care Provider] -
[2020-02-03 08:59] VITALS: BP 119/74; TEMP 97.1
[2020-02-03] MEDS: NICOTINE 21 MG/PAT TD SCH (09:00)
[2020-02-03] MEDS: CLOPIDOGREL 75 MG TABLET PO SCH (10:01)
[2020-02-03] MEDS: VITAMIN D 5,000 UNIT CAP PO SCH (10:02)
[2020-02-03] MEDS: ENOXAPARIN 40 MG/0.4 ML SQ SCH (10:03)
[2020-02-03 14:13] VITALS: O2SAT 99
== END 2020-02-03 12:27 | disposition home or self-care (01) | DRG 638 ==
LOC: ER 02:16 → ERHOLD 04:53 → 2ND 02-01 16:20
PROVIDERS: ADMIT Internal Medicine; ATTEND Internal Medicine
DX: E11.10 Type 2 diabetes mellitus with ketoacidosis without coma (principal); E87.0 Hyperosmolality and hypernatremia; Z68.41 Body mass index [BMI] 40.0-44.9, adult; N39.0 Urinary tract infection, site not specified; E66.01 Morbid (severe) obesity due to excess calories; E86.0 Dehydration; I10 Essential (primary) hypertension; E83.39 Other disorders of phosphorus metabolism; D72.829 Elevated white blood cell count, unspecified; E11.40 Type 2 diabetes mellitus with diabetic neuropathy, unspecified; F17.210 Nicotine dependence, cigarettes, uncomplicated; T38.3X6A Underdosing of insulin and oral hypoglycemic [antidiabetic] drugs, initial encounter; Z91.040 Latex allergy status; Z79.4 Long term (current) use of insulin; Z79.899 Other long term (current) drug therapy; Z79.02 Long term (current) use of antithrombotics/antiplatelets; Z89.422 Acquired absence of other left toe(s); Z90.49 Acquired absence of other specified parts of digestive tract; Z86.73 Personal history of transient ischemic attack (TIA), and cerebral infarction without residual deficits; Z91.128 Patient's intentional underdosing of medication regimen for other reason; Z20.828 Contact with and (suspected) exposure to other viral communicable diseases
CPT/HCPCS: 36415; 71045; 74177; 80048; 80061; 80076; 81003; 82010; 82805; 82947; 83036; 83605; 83690; 83735; 83930; 84100; 84703; 85025; 87040; 87070; 87081; 87086; 87088; 87804; 99285; J0696; J1650; J1815; J2270; J2405; J3480; J7030; J7040; J7799; Q9967; U0003

== ENCOUNTER 2020-07-23 12:48 | Observation (INO) | payer OTHER ==
[2020-07-23 13:38] LABS: Urine Blood Trace-intact (Negative); Urine Glucose 2+ (Negative); Urine Protein Negative (Negative); Urine Specific Gravity 1.015 (1.005-1.030); Urine pH 5.5 (5.0-7.0)
[2020-07-23 14:39] LABS: Absolute Lymphocytes (CBC) 1.7 K/uL (0.7-4.9); Basophils % 0.3 % (0-1.3); Hematocrit 40.4 % (36.0-45.0); Lymphocytes % 10.1 % (15.3-44.8); MPV 8.8 fL (7.6-11.3); RBC Red Blood Cell Count 4.61 M/uL (3.86-4.86)
[2020-07-23 14:52] LABS: Albumin 3.5 g/dL (3.4-5.0); Bilirubin Direct 0.1 mg/dL (0-0.2); Bilirubin Total 0.5 mg/dL (0.2-1.0); Potassium 4.1 mmol/L (3.5-5.1); Protein, Total 7.2 g/dL (6.4-8.2)
[2020-07-23] MEDS ORDERED: ONDANSETRON 4 MG/2 ML VIAL ONE ×2 (14:52→16:23)
[2020-07-23] MEDS ORDERED: MEPERIDINE HCL 25 MG/ML SYR ONE (14:53)
[2020-07-23] MEDS ORDERED: NA CHLORIDE 0.9% 1,000 ML ONE ×2 (14:53→16:37)
[2020-07-23] MEDS ORDERED: Levofloxacin 750mg IV 750 MG/150 ML BAG IV ONE (14:53)
--- NOTE | 2020-07-23 14:53 | ER ---
Nurse's Notes [facility] Name: Roxie Eastman Age: 50 yrs Sex: Female : 1970 Arrival Date: 07/23/2020 Time: 12:53 Bed 5 Private MD: Diagnosis: Cutaneous abscess of buttock Presentation: 07/23 12:58 Chief complaint: Patient states: States abscess to R rectal area and buttocks since ll1 Thursday getting progressively worse. Went to her PCP and Dr. Mcguire, he sent her in for I\T\D and blood work. Reports blood and pus draining from site. No known fever. + nausea. Coronavirus screen: Client denies travel out of the [place] in the last 14 days. At this time, the client does not indicate any symptoms associated with coronavirus-19. Ebola Screen: Patient denies travel to an Ebola-affected area in the 21 days before illness onset. Initial Sepsis Screen: Does the patient meet any 2 criteria? HR > 90 bpm. No. Patient's initial sepsis screen is negative. Does the patient have a suspected source of infection? Yes: Skin breakdown/wound. Risk Assessment: Do you want to hurt yourself or someone else? Patient reports no desire to harm self or others. Onset of symptoms was July 20, 2020. 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 Last tetanus immunization: unknown, Flu vaccine is not up to date. - Social history:: Smoking status: Patient reports the use of cigarette tobacco products, smokes one-half pack cigarettes per day. Screenin:26 Abuse screen: Denies threats or abuse. Nutritional screening: No deficits noted. jd3 Tuberculosis screening: No symptoms or risk factors identified. Fall Risk Ambulatory Aid- None/Bed Rest/Nurse Assist (0 pts). Gait- Normal/Bed Rest/Wheelchair (0 pts) Mental Status- Oriented to own ability (0 pts). Total Au Fall Scale indicates No Risk (0-24 pts). Assessment: 13:00 General: Appears in no apparent distress. comfortable, Behavior is calm, cooperative, jd3 appropriate for age. Pain: Complains of pain in gluteal cleft Quality of pain is described as tender. Neuro: Level of Consciousness is awake, alert, obeys commands, Oriented to person, place, time, situation. Cardiovascular: Denies chest pain, Capillary refill < 3 seconds Patient's skin is warm and dry. Respiratory: Airway is patent Respiratory effort is even, unlabored, Respiratory pattern is regular, symmetrical, Denies cough, shortness of breath. GI: No signs and/or symptoms were reported involving the gastrointestinal system. : No signs and/or symptoms were reported regarding the genitourinary system. EENT: No signs and/or symptoms were reported regarding the EENT system. Derm: Skin is intact, Skin is dry, Skin is normal, Skin temperature is warm Reports abscess to right side of of inner gluteal cleft. Musculoskeletal: Circulation, motion, and sensation intact. Range of motion:. 14:25 Reassessment: Patient appears in no apparent distress at this time. No changes from jd3 previously documented assessment. Patient and/or family updated on plan of care and expected duration. Pain level reassessed. Patient is alert, oriented x 3, equal unlabored respirations, skin warm/dry/pink. 16:07 Reassessment: Patient appears in no apparent distress at this time. Patient and/or jd3 family updated on plan of care and expected duration. Pain level reassessed. Patient is alert, oriented x 3, equal unlabored respirations, skin warm/dry/pink. report given to OR nurse. Vital Signs: 12:58 BP 141 / 69; Pulse 106; Resp 17; Temp 99.3; Pulse Ox 98% ; Weight 110.22 kg; Height 5 ll1 ft. 5 in. (165.10 cm); Pain 9/10; 14:23 BP 113 / 66; Pulse 96; Resp 17 S; Pulse Ox 97% on R/A; jd3 16:07 BP 143 / 71; Pulse 95; Resp 17 S; Pulse Ox 98% on R/A; jd3 12:58 Body Mass Index 40.44 (110.22 kg, 165.10 cm) ll1 ED Course: 12:53 Patient arrived in ED. am2 13:00 Triage completed. ll1 13:02 Arm band placed on. ll1 13:02 Patient placed in an exam room, on a stretcher. ll1 13:03 Yevgeniy Dietrich, MARCO A is Primary Nurse. jd3 13:11 Sukhwinder Shore PA is PHCP. cp 13:11 Sukhwinder Roberts MD is Attending Physician. cp 14:21 Initial lab(s) drawn, by me, sent to lab. Inserted saline lock: 22 gauge in right jl7 forearm, using aseptic technique. Blood collected. 14:26 Patient has correct armband on for positive identification. Placed in gown. Bed in low jd3 position. Call light in reach. Side rails up X 1. Pulse ox on. NIBP on. 14:28 Urine --Ancillary Sent. mh5 14:28 Urine --Ancillary (enter results) Sent. mh5 14:28 Liver (Hepatic) Function Sent. mh5 14:29 Procalcitonin Sent. mh5 14:29 Lactate Sent. mh5 14:29 Basic Metabolic Panel Sent. mh5 14:29 CBC with Automated Diff Sent. mh5 14:29 Blood Culture Adult (2) Sent. mh5 14:29 Lactate Sent. mh5 14:29 Procalcitonin Sent. mh5 14:29 Basic Metabolic Panel Sent. mh5 14:30 CBC with Diff Sent. mh5 14:30 Hepatic Function Sent. mh5 14:30 Initial lab(s) drawn, by me, sent to lab. First set of blood cultures drawn Second set mh5 of blood cultures drawn by me, Urine collected: clean catch specimen, cloudy, EKG done, by ED staff, reviewed by Sukhwinder FIELDS. 14:31 Patient has correct armband on for positive identification. Placed in gown. Bed in low mh5 position. Call light in reach. Side rails up X 1. Warm blanket given. Pulse ox on. NIBP on. 14:32 Wound Culture Sent. mh5 14:52 Norm Newton is Hospitalizing Provider. cp 15:13 XRAY Chest (1 view) In Process Unspecified. EDMS 16:08 No provider procedures requiring assistance completed. Patient admitted, IV remains in jd3 place. Administered Medications: 14:45 Not Given (Physician Discretion): Marcaine (bupivacaine) (0.5 %) 10 ml 10 ml jd3 Infiltration once 14:45 Drug: LevaQUIN (levofloxacin) 750 mg Volume: 150 ml; Route: IVPB; Infused Over: 90 jd3 mins; Site: right forearm; 16:15 Follow up: Response: No adverse reaction; IV Status: Completed infusion jd3 14:46 Drug: Demerol (meperidine) 25 mg Route: IVP; Site: right forearm; jd3 15:40 Follow up: Response: No adverse reaction; RASS: Alert and Calm (0) jd3 14:46 Drug: NS 0.9% 1000 ml Route: IV; Rate: 1 bolus; Site: right forearm; jd3 15:40 Follow up: Response: No adverse reaction; IV Status: Completed infusion jd3 14:46 Drug: Zofran (Ondansetron) 4 mg Route: IVP; Site: right forearm; jd3 15:40 Follow up: Response: No adverse reaction jd3 14:46 Not Given (Physician Discretion): Lidocaine-Epinephrine -1%: (1:100,000) 10 ml 20 ml jd3 Infiltration once; to bedside 16:17 Drug: vancoMYCIN 1.5 grams Route: IVPB; Rate: calculated rate; Site: right forearm; jd3 16:20 Follow up: Response: No adverse reaction; IV Status: Infusion continued upon admission jd3 Outcome: 14:52 Decision to Hospitalize by Provider. cp 16:08 Condition: stable jd3 16:08 Instructed on follow up and referral plans. the need for admit. 16:24 Admitted to OR jd3 16:24 Patient left the ED. jd3 Signatures: Dispatcher [employer] EDCO Sukhwinder Shore PA PA cp Martinez, Maria 5 Braden Fong RN RN jl7 Soo Chavis Jonathon RN RN jd3 Arelis Negro RN RN ll1
--- NOTE | 2020-07-23 14:53 | EDPHYS ---
Physician Documentation [facility] Name: Roxie Eastman Age: 50 yrs Sex: Female : 1970 Arrival Date: 07/23/2020 Time: 12:53 Bed 5 Private MD: ED Physician Sukhwinder Roberts HPI: 07/23 13:35 This 50 yrs old Female presents to ER via Ambulatory with complaints of cp Abscess. 13:35 The patient presents with cellulitis of the buttocks. Description: draining. Onset: The cp symptoms/episode began/occurred 3 day(s) ago, and became worse today. Associated signs and symptoms: Pertinent positives: drainage, fever. The patient has been recently seen by a physician: Dr. Mcguire a general surgeon, with similar presenting complaints, and was sent to the [facility] Emergency Department for further evaluation. 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 Last tetanus immunization: unknown, Flu vaccine is not up to date. - Social history:: Smoking status: Patient reports the use of cigarette tobacco products, smokes one-half pack cigarettes per day. ROS: 13:40 Constitutional: Negative for body aches, chills, fever, poor PO intake. cp 13:40 Eyes: Negative for injury, pain, redness, and discharge. cp 13:40 ENT: Negative for ear pain, sore throat, difficulty swallowing, difficulty handling secretions. 13:40 Cardiovascular: Negative for chest pain. 13:40 Respiratory: Negative for cough, shortness of breath, wheezing. 13:40 Abdomen/GI: Negative for abdominal pain, nausea, vomiting, and diarrhea. 13:40 Skin: Positive for cellulitis, of the buttocks. 13:40 Neuro: Negative for altered mental status, headache, weakness. 13:40 All other systems are negative. Exam: 13:45 Constitutional: The patient appears in no acute distress, alert, awake, cp non-diaphoretic, non-toxic, well developed, well nourished, obese. 13:45 Head/Face: Normocephalic, atraumatic. cp 13:45 Eyes: Periorbital structures: appear normal, Conjunctiva: normal, no exudate, no injection, Lids and lashes: appear normal, bilaterally. 13:45 ENT: External ear(s): are unremarkable, Nose: is normal, Mouth: Lips: moist, Oral mucosa: moist, Posterior pharynx: Airway: no evidence of obstruction, patent. 13:45 Chest/axilla: Inspection: normal, Palpation: is normal, no crepitus, no tenderness. 13:45 Cardiovascular: Rate: tachycardic, Rhythm: regular. 13:45 Respiratory: the patient does not display signs of respiratory distress, Respirations: normal, no use of accessory muscles, no retractions, labored breathing, is not present, Breath sounds: are clear throughout, no decreased breath sounds, no stridor, no wheezing. 13:45 Abdomen/GI: Inspection: abdomen appears normal, Palpation: abdomen is soft and non-tender, in all quadrants. 13:45 Skin: cellulitis, that is moderate, on the right buttock, induration, that is moderate is noted, located on the right buttock. 13:45 Neuro: Orientation: to person, place \\T\\ time. Mentation: is normal, Motor: moves all fours, strength is normal. Vital Signs: 12:58 BP 141 / 69; Pulse 106; Resp 17; Temp 99.3; Pulse Ox 98% ; Weight 110.22 kg; Height 5 ll1 ft. 5 in. (165.10 cm); Pain 9/10; 14:23 BP 113 / 66; Pulse 96; Resp 17 S; Pulse Ox 97% on R/A; jd3 16:07 BP 143 / 71; Pulse 95; Resp 17 S; Pulse Ox 98% on R/A; jd3 12:58 Body Mass Index 40.44 (110.22 kg, 165.10 cm) ll1 MDM: 13:15 Patient medically screened. cp 14:30 Physician consultation: Preet Mcguire MD was contacted at 14:30, regarding patient's cp condition, wants patient admitted for surgical I\\T\\D. 15:00 Physician consultation: was contacted at 14:45, Carmen Barragan [employer] hospitalist will admit cp patient. 15:40 Data reviewed: vital signs, nurses notes, lab test result(s). 15:40 Response to treatment: the patient's symptoms have markedly improved after treatment. 07/23 13:33 Order name: Basic Metabolic Panel 07/23 13:33 Order name: CBC with Diff 07/23 13:33 Order name: Hepatic Function 07/23 13:33 Order name: Procalcitonin 07/23 13:33 Order name: Lactate 07/23 13:33 Order name: Blood Culture Adult (2) 07/23 13:34 Order name: Basic Metabolic Panel; Complete Time: 15:33 EDMS 07/23 15:33 Interpretation: Normal except: GLUC 365; GFR 57. 07/23 13:34 Order name: CBC with Automated Diff; Complete Time: 15:33 EDMS 07/23 15:34 Interpretation: Normal except: WBC 16.90; MCV 87.6; SAUMYA% 82.1; LYM% 10.1; NEUT A 13.9. 07/23 13:34 Order name: Liver (Hepatic) Function; Complete Time: 15:33 EDMS 07/23 15:34 Interpretation: Normal except: AST 9; GLOB 3.7; A/G 0.9. 07/23 13:34 Order name: Procalcitonin; Complete Time: 15:33 EDMS 07/23 15:34 Interpretation: Abnormal: Procalcitonin 0.08. 07/23 13:34 Order name: Lactate; Complete Time: 15:33 EDMS 07/23 15:34 Interpretation: Within normal limits: LAC 1.5. 07/23 13:37 Order name: Urine Dipstick-Ancillary; Complete Time: 15:33 EDMS 07/23 15:35 Interpretation: Normal except: UGLUC 2+; UKET 1+; UBLD Trace-intact. 07/23 13:40 Order name: Urine --Ancillary (enter results) 07/23 13:40 Order name: Urine --Ancillary; Complete Time: 15:33 EDMS 07/23 13:33 Order name: IV Saline Lock; Complete Time: 14:20 07/23 13:33 Order name: Labs collected and sent; Complete Time: 14:20 07/23 13:33 Order name: Urine Dipstick-Ancillary (obtain specimen); Complete Time: 14:30 cp 07/23 13:33 Order name: Urine Test (obtain specimen); Complete Time: 14:29 cp 07/23 13:54 Order name: Wound Culture 07/23 13:54 Order name: I\\T\\D Setup; Complete Time: 14:46 07/23 14:34 Order name: Glucose, Ancillary Testing; Complete Time: 15:33 EDMS 07/23 14:54 Order name: XRAY Chest (1 view); Complete Time: 15:33 cp 07/23 15:35 Interpretation: Report reviewed. 07/23 15:01 Order name: COVID-19 : Document "Date of Symptom Onset" if Symptomatic. 07/23 14:17 Order name: NPO; Complete Time: 14:20 cp Administered Medications: 14:45 Not Given (Physician Discretion): Marcaine (bupivacaine) (0.5 %) 10 ml 10 ml jd3 Infiltration once 14:45 Drug: LevaQUIN (levofloxacin) 750 mg Volume: 150 ml; Route: IVPB; Infused Over: 90 jd3 mins; Site: right forearm; 16:15 Follow up: Response: No adverse reaction; IV Status: Completed infusion jd3 14:46 Drug: Demerol (meperidine) 25 mg Route: IVP; Site: right forearm; jd3 15:40 Follow up: Response: No adverse reaction; RASS: Alert and Calm (0) jd3 14:46 Drug: NS 0.9% 1000 ml Route: IV; Rate: 1 bolus; Site: right forearm; jd3 15:40 Follow up: Response: No adverse reaction; IV Status: Completed infusion jd3 14:46 Drug: Zofran (Ondansetron) 4 mg Route: IVP; Site: right forearm; jd3 15:40 Follow up: Response: No adverse reaction jd3 14:46 Not Given (Physician Discretion): Lidocaine-Epinephrine -1%: (1:100,000) 10 ml 20 ml jd3 Infiltration once; to bedside 16:17 Drug: vancoMYCIN 1.5 grams Route: IVPB; Rate: calculated rate; Site: right forearm; jd3 16:20 Follow up: Response: No adverse reaction; IV Status: Infusion continued upon admission jd3 Disposition: 07/24 07:19 Co-signature as Attending Physician, Sukhwinder Roberts MD I agree with the assessment and [facility] plan of care. Disposition: 07/23/20 14:52 Hospitalization ordered by Norm Newton for Observation. Preliminary diagnosis is Cutaneous abscess of buttock. - Bed requested for Operating Room. - Status is Observation. jd3 - Condition is Stable. - Problem is new. - Symptoms have improved. Signatures: Dispatcher [employer] EDMT Sukhwinder Roberts MD MD cha Page, Corey, PA PA cp Davies, Jonathon RN RN jArelis Murphy RN RN ll1 Corrections: (The following items were deleted from the chart) 07/23 16:24 14:52 Hospitalization Ordered by Norm Newton for Observation. Preliminary diagnosis jd3 is Cutaneous abscess of buttock. Bed requested for Operating Room. Status is Observation. Condition is Stable. Problem is new. Symptoms have improved. cp
[2020-07-23 14:57] LABS: Urine Specific Gravity/Preg 1.015 (1.005-1.030)
[2020-07-23] MEDS ORDERED: VANCOMYCIN 1.5 GM in NA CHLORIDE 0.9% 500 ML IVPB ONE (15:00)
--- NOTE | 2020-07-23 15:23 | RAD REPORT ---
EXAM DESCRIPTION: Hammad Single View07/23/2020 3:15 pm CLINICAL HISTORY: Rectal abscess. Preop COMPARISON: 2019 FINDINGS: The lungs appear clear of acute infiltrate. The heart is normal size IMPRESSION: No acute abnormalities displayed
[2020-07-23] MEDS ORDERED: propofoL 200 MG/20 ML VIAL IV ONE (16:22)
[2020-07-23] MEDS ORDERED: FENTANYL CITR 100 MCG/2 ML ONE ×2 (16:22→17:05)
[2020-07-23] MEDS ORDERED: LIDOCAINE 2% MPF 5 ML VIAL ONE (16:22)
[2020-07-23] MEDS ORDERED: dexAMETHasone 10 MG/ML VIAL ONE (16:23)
[2020-07-23] MEDS ORDERED: KETOROLAC 30 MG/ML INJ ONE (16:23)
--- NOTE | 2020-07-23 16:26 | P.HP ---
Date of Service: 07/23/20 PC: This 42-year-old female presents emergency room with a right perirectal abscess. HPC: Patient has had this last few days. Appears to be getting bigger. Had some small drainage out of the bed still a lot of pressure in that area. She is also diabetic and has not felt well today. PMH: Diabetes PSHx: Surgery as a child SOC: Allergic to late, medication list was reviewed SYS REVIEW: No cough, wheeze, shortness of breath. No chest pain or palpitations. Denies any urinary complaints O/E awake alert stable HEENT: Not jaundice Chest: Air entry equal bilaterally ABD: Negative LOCO: Has a large perirectal abscess on the right side DATA: Elevated white cell count, elevated serum because IMPRESSION: Perirectal abscess PLAN: I will take her the operating room for incision, drainage, sharp debridement of this abscess. The risks of this procedure have been discussed. The possibility of bleeding, infection, need for further surgeries and procedures was discussed. She understands and wants us to proceed.
[2020-07-23] MEDS ORDERED: INSULIN -REGULAR HUMAN 50 UNIT/0.5 ML ML ONE (16:46)
[2020-07-23] MEDS ORDERED: GLUCAGON 1 MG/VIAL IM PRN (17:07)
--- NOTE | 2020-07-23 17:13 | P.OP ---
Preoperative diagnosis: Right-sided perirectal abscess Postoperative diagnosis: The same Primary procedure: Incision, drainage, sharp debridement of perirectal abscess Anesthesia: General Estimated blood loss: Less than 10 cc Specimen: Necrotic material not sent Operative Technique: The patient brought the operating room placed supine on the table. After the induction of adequate general anesthesia, there the patient was placed into lithotomy position. The perineal area was now prepped with a Betadine solution, she is draped in usual aseptic manner. Attention was turned towards is right perirectal abscess. We could see the area of chronic induration and a large central abscess with 2 areas that were trying to point. After inject with 0.25% Marcaine, a skin incision was made over the more lateral of these. We encounter a large abscess cavities drain some purulent foul-smelling material. The loculations on this were broken down. The 2nd area was opened using electro cautery. This obviously communicated with the of the large abscess underneath it. The wound was now curetted with a surgical curette as well as sharply debrided with a cutting surgical blade. The necrotic material was removed. A 2. Nylon was now placed into the wound and brought out more laterally. At the end of the procedure the patient was in a stable condition when sent to the recovery room. Needle sponge instrument count were correct. Complications: None Drain(s): Other (2. Nylon)
[2020-07-23] MEDS ORDERED: KETOROLAC 30 MG/ML INJ IV PRN (17:32)
[2020-07-23] MEDS ORDERED: ONDANSETRON 4 MG/2 ML VIAL IV PRN (17:32)
[2020-07-23] MEDS ORDERED: HYDROCODONE/APAP 7.5/325 MG TAB PO PRN (17:32)
[2020-07-23] MEDS ORDERED: D50W 25 GM/50 ML VIAL IV PRN (17:35)
[2020-07-23 18:05] VITALS: BP 106/57; TEMP 98.2; O2SAT 94
--- NOTE | 2020-07-23 19:57 | P.CNS ---
Date of Consult: 07/23/20 Reason for Consult: Medical Management Requesting Physician: Preet Mcguire Chief Complaint: Perirectal abscess History of Present Illness: Patient is a 50 years old female with a past medical history significant DM 2, HTN, CVA, Tobacco Abuse, who presents with complaint of right buttocks pain\swelling and redness onset 3 days ago. Patient rated pain as 9/10 and described pain as aching in quality. Patient denies any other signs and symptoms. Symptoms are aggravated by pressure and relieved by nothing. Patient decided to see her PCP who referred her to a surgeon. Patient was consequently referred to the ER for an incision and debridement. Allergies latex Allergy (Verified 01/13/17 21:31) Hives Home medications list reviewed: Yes Home Medications: Metformin HCl 1,000 mg PO BIDWM 01/13/17 Clopidogrel Bisulfate [Plavix*] 75 mg PO DAILY #30 tablet 01/15/17 Cholecalciferol (Vitamin D3) [Vitamin D3] 5,000 unit PO DAILY 01/31/20 Empagliflozin [Jardiance] 25 mg PO DAILY 01/31/20 Gabapentin 600 mg PO BEDTIME 01/31/20 Insulin Lispro [Humalog Kwikpen U-100] 5 units SQ TID 01/31/20 Losartan Potassium 50 mg PO DAILY 01/31/20 Insulin Glargine Human [Lantus*] 35 units SQ DAILY WITH BREAKFAST ml 02/03/20 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 Psychosocial/ Personal History: Patient lives with her - Family History Father Medical History: GI disease - Social History Smoking Status: Current every day smoker Alcohol use: Yes CD- Drugs: No Caffeine use: Yes Review of Systems General: Unremarkable Eyes: Unremarkable ENT: Unremarkable Respiratory: Unremarkable Cardiovascular: Unremarkable Gastrointestinal: Unremarkable Genitourinary: Unremarkable Musculoskeletal: Unremarkable Integumentary: Other (Right buttocks swelling \redness\drainage ), Unremarkable Neurological: Unremarkable Lymphatics: Unremarkable Physical Examination Temp Pulse Resp BP Pulse Ox 98.2 F 87 16 106/57 L 07/23/20 18:45 07/23/20 18:45 07/23/20 18:45 07/23/20 18:45 General: Alert, In no apparent distress, Oriented x3 HEENT: Atraumatic, Normocephalic, PERRLA, Mucous membr. moist/pink, EOMI Neck: Supple, 2+ carotid pulse no bruit, JVD not distended Respiratory: Clear to auscultation bilaterally, Normal air movement Cardiovascular: No edema, Normal pulses, Regular rate/rhythm, Normal S1 S2 Capillary refill: <2 Seconds Gastrointestinal: Normal bowel sounds, Non-distended Musculoskeletal: No clubbing, No swelling, No contractures Integumentary: No rashes, Skin breakdown, No ulcers, Other (right buttocks swelling \redness\drainage ) Neurological: Normal gait, Normal speech, Normal affect Lymphatics: No axilla or inguinal lymphadenopathy Urinary: Other (None) External genitalia: Deferred Rectal: Induration, Other Other Physical/Emotional Findings: right buttocks swelling \redness\drainage Laboratory Data (last 24 hrs) 07/23/20 14:15: WBC 16.90 H, Hgb 13.0, Hct 40.4, Plt Count 302 07/23/20 14:15: Sodium 140, Potassium 4.1, BUN 14, Creatinine 1.04, Glucose 365 H, Total Bilirubin 0.5, AST 9 L, ALT 18, Alkaline Phosphatase 92 Conclusions/Impression: Patient was not amitted to the hospital because Surgeon anticipated discharge today. Patient was seen by a surgeon and had a successful incision and debridement. Patient tolerated the procedure. Patient was discharged by surgeon. Patient instructed to follow-up with her PCP and surgeon. Patient instructed to take her home medications as directed. Critical Care: No
[2020-07-23] MEDS ORDERED: HOME MED 1 EA UNK (Insulin Lispro [Humalog Kwikpen U-100] 100 UNIT/ML Insuln.Pen) SQ SCH (21:00)
[2020-07-23] MEDS ORDERED: GABAPENTIN 300 MG CAP PO SCH (21:00)
[2020-07-24] MEDS ORDERED: PIPER/TAZO/NS 3.375gm 3.375 GM/100 ML BAG IVPB SCH (01:00)
[2020-07-24] MEDS ORDERED: INSULIN GLARGINE 100 UNITS/ML SQ SCH (08:00)
[2020-07-24] MEDS ORDERED: HOME MED 1 EA UNK (Metformin Hcl [Metformin Hcl] 1,000 MG Tablet) PO SCH (08:00)
[2020-07-24] MEDS ORDERED: HOME MED 1 EA UNK (Cholecalciferol (Vitamin D3) [Vitamin D3] 2000 UNIT Capsule) PO SCH (09:00)
[2020-07-24] MEDS ORDERED: LOSARTAN POTASSIUM 50 MG TABLET PO SCH (09:00)
[2020-07-24] MEDS ORDERED: CLOPIDOGREL 75 MG TABLET PO SCH (09:00)
[2020-07-24] MEDS ORDERED: HOME MED 1 EA UNK (Empagliflozin [Jardiance] 25 MG Tablet) PO SCH (09:00)
--- NOTE | 2020-07-24 11:15 | EKG ---
Test Date: 2020-07-23 Test Time: 14:44:51 Medical Technologist Clinical: CARLO MEASUREMENT RESULTS: Intervals: Rate: 97 OH: 110 QRSD: 88 QT: 346 QTc: 439 [place]: P: 54 OH: 110 QRS: 59 T: 48 INTERPRETIVE STATEMENTS: Sinus rhythm with short OH Otherwise normal ECG Compared to ECG 01/13/2017 20:14:10 Short OH interval now present Electronically Signed On 07-24-20 11:13:29 CDT by Ugo Hassan
== END 2020-07-23 18:45 | disposition home or self-care (01) ==
LOC: ER 12:48 → ERHOLD 17:06
PROVIDERS: ADMIT Family Medicine; ATTEND Family Medicine
PROC: 0D9P0ZZ Drainage of Rectum, Open Approach (ICD-10-PCS; principal; 2020-07-23 16:00)
DX: K61.1 Rectal abscess (principal); G47.33 Obstructive sleep apnea (adult) (pediatric); I10 Essential (primary) hypertension; Z86.73 Personal history of transient ischemic attack (TIA), and cerebral infarction without residual deficits; E11.40 Type 2 diabetes mellitus with diabetic neuropathy, unspecified; Z79.4 Long term (current) use of insulin; Z89.422 Acquired absence of other left toe(s); F17.210 Nicotine dependence, cigarettes, uncomplicated
CPT/HCPCS: 96365; 93005; 87040 ×2; 87070; 85025; 80048; 36415; 87205; 81025; 82947 ×3; 80076; 83605; 81003; 84145; 71045; 96375; 99285; 46040; J2704; J3010 ×2; J3370; J1100; J2175; J7040; J7030 ×2; J2405 ×2; 87077; 87186; G0378

== ENCOUNTER 2022-02-02 23:03 | Inpatient (IN) | payer OTHER ==
--- OUTSIDE RECORDS SUMMARY | 2022-02-02 23:07 | XMS REPORT | Continuity of Care Document ---
:1970 Author Organization [facility] t Address [address] [place] [address] [place] [id number] Care Team Providers Name Role Phone URI RODRIGUEZ Attending Clinician Unavailable DOT STOCK Attending Clinician Unavailable Payers Payer Name Policy Type Policy Number Effective Date Expiration Date [place] [address] [id number] 2020 00:00:00 Problems This patient has no known problems. Allergies, Adverse Reactions, Alerts This patient has no known allergies or adverse reactions. Medications This patient has no known medications. Procedures This patient has no known procedures. Encounters Start End Encounter Admission Attending Care Care Encounter Source Date/Time Date/Time Type Type Clinicians Facility Department ID 2020-12-13 2020-12-13 Outpatient [facility] RODRIGUEZ [id number] [place] 00:00:00 00:00:00 URIJOSEPH Crawleyol jesus 2020-11-01 2020-11-01 Outpatient [facility] 101 [id number] [place] 09:45:00 09:45:00 Seybol d 2020-11-01 2020-11-01 Outpatient [facility] 101 [id number] [place] 00:00:00 00:00:00 Seybol jesus 2020-10-31 2020-10-31 Outpatient [facility] 101 [id number] [place] 00:00:00 00:00:00 Seybol d 2020-10-25 2020-10-25 Outpatient [place] RODRIGUEZ [id number] [place] 09:30:00 09:30:00 URI Seybol jesus Results This patient has no known results.
[2022-02-03] MEDS ORDERED: VANCOMYCIN 1 GM/VIAL ONE
[2022-02-03] MEDS ORDERED: CEFEPIME 2 GM VIAL ONE
[2022-02-03] MEDS ORDERED: NA CHLORIDE 0.9% 500 ML ONE (00:01)
[2022-02-03] MEDS ORDERED: NA CHLORIDE 0.9% 3,000 ML ONE (00:01)
[2022-02-03] MEDS ORDERED: NA CHLORIDE 0.9% 100 ML IV ONE ×5 (00:01→17:21)
[2022-02-03 00:03] LABS: Absolute Lymphocytes (CBC) 2.3 K/uL (0.7-4.9); Hematocrit 47.6 % (36.0-45.0); Lymphocytes % 10.8 % (15.3-44.8); MCV 97.9 fL (80-100); MPV 8.5 fL (7.6-11.3); RBC Red Blood Cell Count 4.86 M/uL (3.86-4.86)
[2022-02-03 00:04] LABS: Protime INR 0.95
[2022-02-03 00:18] LABS: ALT/SGPT 22 U/L (12-78); AST/SGOT 5 U/L (15-37); Albumin 3.5 g/dL (3.4-5.0); Alkaline Phosphatase 165 U/L (45-117); BUN Blood Urea Nitrogen 13 mg/dL (7-18); Bilirubin Total 0.5 mg/dL (0.2-1.0); Glomerular Filtration Rate 38 ml/min (=/>90); Potassium 3.6 mmol/L (3.5-5.1); Protein, Total 8.4 g/dL (6.4-8.2); Sodium Level 135 mmol/L (136-145)
[2022-02-03 00:20] LABS: Bicarbonate < 8 mmol/L (21-32); Glucose Level 483 mg/dL (74-106)
[2022-02-03 00:44] LABS: Urine Blood 2+ (Negative); Urine Glucose 2+ (Negative); Urine Protein 2+ (Negative); Urine Specific Gravity 1.025 (1.005-1.030); Urine pH 5.5 (5.0-7.0)
[2022-02-03] MEDS ORDERED: INSULIN -REGULAR HUMAN 50 UNIT/0.5 ML ML ONE (00:49)
[2022-02-03 00:55] LABS: Arterial Blood Carboxyhemoglob 1.2 % (0-1.5); Blood O2 Saturation 94.9 % (92-98.5)
[2022-02-03 01:16] LABS: Blood Morphology Comment NOT SEEN (NOT SEEN); Platelet Estimate ADEQ
--- NOTE | 2022-02-03 01:48 | ER ---
Nurse's Notes [facility] Name: Roxie Eastman Age: 51 yrs Sex: Female : 1970 Arrival Date: 02/02/2022 Time: 23:08 Bed 3 Private MD: Diagnosis: Diabetic ketoacidosis, sepsis, cellulitis Presentation: 02/02 23:25 Chief complaint: Spouse and/or significant other states: She has been out of her kd3 diabetic medications and so i do not know how long she has not been taking the, but now she is very confused and talking nonsense. Coronavirus screen: Vaccine status: Patient reports being unvaccinated. Ebola Screen: No symptoms or risks identified at this time. Initial Sepsis Screen: Does the patient meet any 2 criteria? RR > 20 per min. HR > 90 bpm. Does the patient have a suspected source of infection? No. Patient's initial sepsis screen is negative. Risk Assessment: Do you want to hurt yourself or someone else? Patient reports no desire to harm self or others. Onset of symptoms was February 02, 2022. 23:25 Method Of Arrival: Wheelchair kd3 23:25 Acuity: PEARL 2 jb4 Triage Assessment: 23:27 General: Appears uncomfortable, Behavior is agitated, uncooperative. General: Smells of kd3 ketones. Pain: Denies pain. Neuro: Level of Consciousness is confused, Oriented to person, place. Cardiovascular: Patient's skin is warm and dry. Respiratory: Airway is patent Respiratory effort is labored. Historical: - Allergies: 23:27 Latex, Natural Rubber; kd3 23:27 Lisinopril; kd3 23:27 Victoza 2-Shyam; kd3 - PMHx: 23:27 CVA; Diabetes - IDDM; UTI; dka; kd3 - Immunization history:: Adult Immunizations up to date. - Social history:: Smoking status: unknown. Screenin:29 Abuse screen: Denies threats or abuse. Denies injuries from another. Nutritional kd3 screening: No deficits noted. Tuberculosis screening: No symptoms or risk factors identified. Fall Risk IV access (20 points). Mental Status- Overestimates/Forgets Limitations (15 pts.). Assessment: 23:15 General: Appears distressed, ill, obese. Pain: Unable to use pain scale. Patient is jb4 disoriented. Neuro: Level of Consciousness is awake, listless, Oriented to person. Cardiovascular: Patient's skin is warm and dry. Respiratory: Airway is patent Respiratory effort is even, labored, Respiratory pattern is symmetrical, [place]. GI: No signs and/or symptoms were reported involving the gastrointestinal system. : No signs and/or symptoms were reported regarding the genitourinary system. EENT: No signs and/or symptoms were reported regarding the EENT system. Derm: Skin is intact, Skin is pink, warm \T\ dry. Musculoskeletal: Circulation, motion, and sensation intact. Range of motion: intact in all extremities. 02/03 00:15 Reassessment: Patient appears in no apparent distress at this time. No changes from jb4 previously documented assessment. Patient and/or family updated on plan of care and expected duration. Pain level reassessed. 01:15 Reassessment: Patient appears in no apparent distress at this time. Pt remains awake jb4 and listless. Respirations unchanged. 02:15 Reassessment: Patient appears in no apparent distress at this time. Pt resting in bed jb4 eyes closed, respirations are unchanged. 03:15 Reassessment: Patient appears in no apparent distress at this time. No changes from jb4 previously documented assessment. Patient and/or family updated on plan of care and expected duration. Pain level reassessed. 04:10 Reassessment: Patient appears in no apparent distress at this time. No changes from jb4 previously documented assessment. Patient and/or family updated on plan of care and expected duration. Pain level reassessed. 05:00 Reassessment: Patient appears in no apparent distress at this time. No changes from jb4 previously documented assessment. Patient and/or family updated on plan of care and expected duration. Pain level reassessed. 06:00 Reassessment: Patient appears in no apparent distress at this time. Patient and/or jb4 family updated on plan of care and expected duration. Pain level reassessed. Patient is alert, oriented x 3, equal unlabored respirations, skin warm/dry/pink. Vital Signs: 02/02 23:25 BP 139 / 61; Pulse 126; Resp 27; Temp 99.3(TE); Pulse Ox 100% on R/A; Weight 102.5 kg; kd3 02/03 00:00 BP 173 / 66; Pulse 120; Resp 28; Pulse Ox 100% on R/A; jb4 01:00 BP 163 / 61; Pulse 107; Resp 26; Pulse Ox 98% on R/A; jb4 02:00 BP 112 / 64; Pulse 103; Resp 26; Pulse Ox 93% on R/A; jb4 03:19 BP 101 / 51; Pulse 101; Resp 25; Pulse Ox 93% ; jb4 04:00 BP 112 / 62; Pulse 97; Resp 24; Pulse Ox 92% on R/A; jb4 05:47 BP 97 / 55; Pulse 99; Resp 22; Pulse Ox 93% on R/A; jb4 06:00 BP 97 / 45; Pulse 97; Resp 24; Pulse Ox 94% on R/A; jb4 05:47 Nadeem Pachecoluis notified blood pressures are now trending down, b/p \T\ 0530 86/41. recieved jb4 verbal order for 500ML bolus of LR. ED Course: 02/02 23:08 Patient arrived in ED. ja2 23:27 Triage completed. kd3 23:27 Arm band placed on right wrist. kd3 23:30 Inserted saline lock: 22 gauge in right hand, using aseptic technique. kd3 23:35 Inserted saline lock: 18 gauge in left antecubital area, using aseptic technique. Blood jb4 collected. 23:35 Initial lab(s) drawn, by me, sent to lab. First set of blood cultures drawn by me. jb4 23:36 Jona Hernandez MD is Attending Physician. kdr 23:53 Preet Fox, MARCO A is Primary Nurse. jb4 23:56 Chest Single View XRAY In Process Unspecified. EDMS 02/03 00:09 Notified ED physician of a critical lab result(s). WBCs of 21.7 Dr Hernandez notified. bb 00:20 Notified ED physician of a critical lab result(s). Glucose of 483, Lactate 2.4, Bicarb bb less than 8. Dr Hernandez notified. 01:46 Richard King MD is Hospitalizing Provider. kdr Administered Medications: 00:17 Drug: NS 0.9% (30 ml/kg) 30 ml/kg Route: IV; Rate: bolus; Site: left antecubital; jb4 05:53 Follow up: Response: No adverse reaction; IV Status: Completed infusion; IV Intake: jb4 3075ml 00:17 Drug: Cefepime 2 grams Route: IVPB; Rate: 200 ml/hr; Infused Over: 30 mins; Site: left [facility] antecubital; 01:00 Drug: Insulin Drip - (Insulin Regular Human 100 units, NS 0.9% 100 ml) {Co-Signature: [email or web address] (Carrol Mercado RN).} Route: IV; Rate: calculated rate; Site: left hand; 05:53 Follow up: IV Status: Infusion continued upon admission 4 01:00 Drug: Insulin Regular Human 8 units {Co-Signature: [email or web address] (Carrol Mercado RN).} Route: IVP; [facility] Site: left hand; 01:08 Not Given (Other Intervention Used): Insulin Regular Human 12 units IVP once [facility] 01:20 Drug: Sodium Bicarbonate 2 amp Route: IVP; Site: left antecubital; [facility] 01:28 Drug: vancoMYCIN 1.5 grams Route: IVPB; Rate: calculated rate; Site: left antecubital; [facility] 07:24 Follow up: Response: No adverse reaction; IV Status: Completed infusion 9 06:00 Drug: Lactated Ringers Solution 500 ml Route: IV; Rate: bolus; Site: left antecubital; [facility] Intake: 05:53 IV: 3075ml; Total: 3075ml. [facility] Outcome: 01:46 Discharge ordered by . kdr 01:47 Decision to Hospitalize by Provider. kdr 17:45 Admitted to ICU accompanied by nurse, via stretcher, with oxygen, on monitor, with mb9 chart, Report called to Liseth Horta RN 17:45 Condition: improved 17:45 Discharge instructions given to family, Instructed on the need for admit, Demonstrated understanding of instructions, follow-up care, medications. 17:46 Patient left the ED. mb9 Signatures: Dispatcher [employer] EDMS Jona Hernandez MD MD kdr Ballard, Brenda RN Preet Lenz RN RN Ladi Diaz Kyli, RN RN kd3 Brooke Couch RN RN mb9 Carrol [email or web address] Corrections: (The following items were deleted from the chart) 02/02 23:53 23:25 Acuity: PEARL 3 kd3 jb4
--- NOTE | 2022-02-03 01:48 | EDPHYS ---
Physician Documentation [facility] Name: Roxie Eastman Age: 51 yrs Sex: Female : 1970 Arrival Date: 02/02/2022 Time: 23:08 Bed 3 Private MD: ED Physician Jona Hernandez HPI: 02/03 03:31 This 51 yrs old Female presents to ER via Wheelchair with complaints of Poorly kdr responsive. 03:31 Patient's states that for the past 2 or 3 hours, she has been poorly kdr responsive. Patient has a history of diabetes but apparently has not been managing her diabetes and in an active manner. The patient is presenting that she would likely has diabetic ketoacidosis. The also relates that she has had a wound or to in her perineal and genitalia area. Those were noted to be grossly erythematous as well as possibly ruptured abscesses. We will get a CAT scan to evaluate. Patient otherwise is poorly responsive with Kussmaul like breathing.. Onset: The symptoms/episode began/occurred gradually, today. Severity of symptoms: At their worst the symptoms were moderate severe incapacitating in the emergency department the symptoms are unchanged. It is unknown whether or not the patient has had similar symptoms in the past. It is unknown whether or not the patient has recently seen a physician. Historical: - Allergies: 02/02 23:27 Latex, Natural Rubber; kd3 23:27 Lisinopril; kd3 23:27 Victoza 2-Shyam; kd3 - PMHx: 23:27 CVA; Diabetes - IDDM; UTI; dka; kd3 - Immunization history:: Adult Immunizations up to date. - Social history:: Smoking status: unknown. ROS: 02/03 03:31 Constitutional: Unobtainable secondary to altered mental status kdr Unable to obtain ROS due to altered mental status. Exam: 03:31 Constitutional: This is a well developed, obese patient who is poorly responsive and kdr in mild to moderate distress. Head/Face: Normocephalic, atraumatic. Eyes: Pupils equal round and reactive to light, extra-ocular motions intact. Lids and lashes normal. Conjunctiva and sclera are non-icteric and not injected. Cornea within normal limits. Periorbital areas with no swelling, redness, or edema. Neck: Trachea midline, no thyromegaly or masses palpated, and no cervical lymphadenopathy. Supple, full range of motion without nuchal rigidity, or vertebral point tenderness. No Meningismus. Chest/axilla: Normal chest wall appearance and motion. Nontender with no deformity. No lesions are appreciated. 03:31 ENT: Mouth: Lips: dry, Oral mucosa: dry. Vital Signs: 02/02 23:25 BP 139 / 61; Pulse 126; Resp 27; Temp 99.3(TE); Pulse Ox 100% on R/A; Weight 102.5 kg; kd3 02/03 00:00 BP 173 / 66; Pulse 120; Resp 28; Pulse Ox 100% on R/A; jb4 01:00 BP 163 / 61; Pulse 107; Resp 26; Pulse Ox 98% on R/A; jb4 02:00 BP 112 / 64; Pulse 103; Resp 26; Pulse Ox 93% on R/A; jb4 03:19 BP 101 / 51; Pulse 101; Resp 25; Pulse Ox 93% ; jb4 04:00 BP 112 / 62; Pulse 97; Resp 24; Pulse Ox 92% on R/A; jb4 05:47 BP 97 / 55; Pulse 99; Resp 22; Pulse Ox 93% on R/A; jb4 06:00 BP 97 / 45; Pulse 97; Resp 24; Pulse Ox 94% on R/A; jb4 05:47 Nadeem Connelly notified blood pressures are now trending down, b/p \\T\\ 0530 86/41. recieved jb4 verbal order for 500ML bolus of LR. MDM: 01:46 Patient medically screened. kdr 03:31 Data reviewed: vital signs, nurses notes, lab test result(s), radiologic studies. kdr Counseling: I had a detailed discussion with the patient and/or guardian regarding: the historical points, exam findings, and any diagnostic results supporting the discharge/admit diagnosis, lab results, radiology results, the need for further work-up and treatment in the hospital. ED course: Patient remained relatively stable in the ED. As her laboratory data revealed pathology, there was addressed with the appropriate medications and fluids. Patient continued to improve mildly in the ED.. 02/02 23:37 Order name: Blood Culture Adult (2) kdr 02/02 23:37 Order name: CBC with Diff; Complete Time: 01:26 kdr 02/02 23:37 Order name: CMP; Complete Time: 00:37 kdr 02/02 23:37 Order name: Lactate; Complete Time: 00:37 kdr 02/02 23:37 Order name: Protime (+inr); Complete Time: 00:05 kdr 02/02 23:37 Order name: Ptt, Activated; Complete Time: 00:05 kdr 02/02 23:37 Order name: Urine Culture kdr 02/02 23:37 Order name: ABG; Complete Time: 03:09 kdr 02/02 23:52 Order name: Glucose, Ancillary Testing; Complete Time: 00:05 EDMS 02/03 00:06 Order name: COVID-19 SARS RT PCR (Document "Date of Onset" if Symptomatic); Complete la1 Time: 03:09 02/03 00:15 Order name: Manual Differential; Complete Time: 01:26 EDMS 02/03 00:45 Order name: Urine Dipstick-Ancillary; Complete Time: 01:02 EDMS 02/03 01:20 Order name: Glucose, Ancillary Testing; Complete Time: 01:26 EDMS 02/03 02:17 Order name: Glucose, Ancillary Testing; Complete Time: 03:09 EDMS 02/03 02:45 Order name: CBC with Automated Diff; Complete Time: 03:09 EDMS 02/03 03:01 Order name: Lactate Sepsis 2 HR Follow-up; Complete Time: 03:09 EDMS 02/03 03:03 Order name: Basic Metabolic Panel; Complete Time: 04:27 EDMS 02/03 03:03 Order name: Phosphorus; Complete Time: 04:27 EDMS 02/03 03:03 Order name: Lipid Profile; Complete Time: 04:27 EDMS 02/03 03:03 Order name: Magnesium; Complete Time: 04:27 EDMS 02/03 03:14 Order name: LDL, Direct; Complete Time: 04:27 EDMS 02/03 03:26 Order name: Hemoglobin A1c; Complete Time: 03:27 EDMS 02/03 03:37 Order name: Glucose, Ancillary Testing; Complete Time: 04:27 EDMS 02/03 04:39 Order name: Glucose, Ancillary Testing; Complete Time: 04:41 EDMS 02/03 05:16 Order name: ABG Arterial Blood Gas; Complete Time: 06:23 EDMS 02/03 05:23 Order name: Glucose, Ancillary Testing; Complete Time: 06:23 EDSC 02/03 06:38 Order name: Glucose, Ancillary Testing EDMS 02/03 07:18 Order name: Basic Metabolic Panel EDSC 02/03 07:33 Order name: Glucose, Ancillary Testing EDSC 02/03 08:40 Order name: Glucose, Ancillary Testing EDSC 02/02 23:37 Order name: Chest Single View XRAY kdr 02/02 23:37 Order name: Accucheck; Complete Time: 23:54 kdr 02/02 23:37 Order name: Cardiac monitoring; Complete Time: 02:20 kdr 02/02 23:37 Order name: EKG - Nurse/Tech; Complete Time: 02:20 kdr 02/02 23:37 Order name: IV Saline Lock - Large Bore; Complete Time: 23:54 kdr 02/02 23:37 Order name: Labs collected and sent; Complete Time: 23:54 kdr 02/02 23:37 Order name: O2 Per Protocol; Complete Time: 23:54 kdr 02/03 02:01 Order name: CT Abd/Pelvis - Without Contrast la1 02/03 09:42 Order name: Glucose, Ancillary Testing EDSC 02/03 09:48 Order name: ABG Arterial Blood Gas EDSC 02/03 10:40 Order name: Glucose, Ancillary Testing EDSC 02/03 11:29 Order name: Glucose, Ancillary Testing EDSC 02/03 12:16 Order name: Acetone Level EDSC 02/03 12:20 Order name: Basic Metabolic Panel EDSC 02/03 12:34 Order name: Glucose, Ancillary Testing EDSC 02/03 13:19 Order name: Glucose, Ancillary Testing EDSC 02/03 13:54 Order name: CT EDSC 02/03 14:44 Order name: Glucose, Ancillary Testing EDSC 02/03 15:38 Order name: Basic Metabolic Panel EDSC 02/03 15:39 Order name: Acetone Level EDMS 02/03 15:40 Order name: Glucose, Ancillary Testing EDMS 02/03 15:50 Order name: ABG Arterial Blood Gas EDMS 02/03 16:28 Order name: Glucose, Ancillary Testing EDMS 02/03 17:13 Order name: Glucose, Ancillary Testing EDSC 02/02 23:37 Order name: O2 Sat Monitoring; Complete Time: 23:54 kdr 02/02 23:37 Order name: Urine Dipstick-Ancillary (obtain specimen); Complete Time: 04:44 kdr 02/02 23:37 Order name: Vital Signs; Complete Time: 23:54 kdr Administered Medications: 00:17 Drug: NS 0.9% (30 ml/kg) 30 ml/kg Route: IV; Rate: bolus; Site: left antecubital; 4 05:53 Follow up: Response: No adverse reaction; IV Status: Completed infusion; IV Intake: jb4 3075ml 00:17 Drug: Cefepime 2 grams Route: IVPB; Rate: 200 ml/hr; Infused Over: 30 mins; Site: left jb4 antecubital; 01:00 Drug: Insulin Drip - (Insulin Regular Human 100 units, NS 0.9% 100 ml) {Co-Signature: audrey edwards (Carrol Mercado RN).} Route: IV; Rate: calculated rate; Site: left hand; 05:53 Follow up: IV Status: Infusion continued upon admission [facility] 01:00 Drug: Insulin Regular Human 8 units {Co-Signature: jerry (Carrol Mercado RN).} Route: IVP; [facility] Site: left hand; 01:08 Not Given (Other Intervention Used): Insulin Regular Human 12 units IVP once 4 01:20 Drug: Sodium Bicarbonate 2 amp Route: IVP; Site: left antecubital; 4 01:28 Drug: vancoMYCIN 1.5 grams Route: IVPB; Rate: calculated rate; Site: left antecubital; 4 07:24 Follow up: Response: No adverse reaction; IV Status: Completed infusion 9 06:00 Drug: Lactated Ringers Solution 500 ml Route: IV; Rate: bolus; Site: left antecubital; jb4 Disposition Summary: 02/03/22 01:47 Hospitalization Ordered Hospitalization Status: Inpatient Admission kdr Provider: iRchard King kdr Condition: Critical(02/03/22 01:47) kdr Problem: an acute exacerbation(02/03/22 01:47) kdr Symptoms: have improved(02/03/22 01:47) kdr Bed/Room Type: Standard kdr Location: Intensive Care Unit(02/03/22 17:05) bd Room Assignment: 5-(02/03/22 17:05) bd Diagnosis - Diabetic ketoacidosis, sepsis, cellulitis kdr Forms: - Medication Reconciliation Form kdr - SBAR form kdr Signatures: Dispatcher [employer] EDVa Orozco bd Ryanne Bejarano, RN MARCO A Jona Hernandez MD MD kdr Nadeem Connelly, MECHANICAL MANUFACTURING TECHNICIAN-C MECHANICAL MANUFACTURING TECHNICIAN-Cla1 Preet Fox RN RN jb4 Delmer Armenta DO DO ms3 Carrol Mercado RN RN kd3 Brooke Couch RN mb9 Carrol Mercado RN kd3 Corrections: (The following items were deleted from the chart) 01:46 01:46 Home kdr kdr 01:46 01:46 new kdr kdr 01:46 01:46 have improved kdr kdr 01:46 01:46 Stable kdr kdr 01:46 01:46 Diabetic ketoacidosis, sepsis, cellulitis perineum and left proximal thigh kdr kdr 02:07 01:47 Intensive Care Unit kdr mw 02:07 01:47 kdr mw 17:05 02:07 [facility] ER HOLD mw bd 17:05 02:07 ERHOLD- mw bd
[2022-02-03] MEDS ORDERED: VANCOMYCIN 1 GM in NA CHLORIDE 0.9% 250 ML IVPB SCH (02:22)
--- NOTE | 2022-02-03 02:34 | P.HP ---
Certification for Inpatient Patient admitted to: Inpatient With expected LOS: >2 Midnights Patient will require the following post-hospital care: None Practitioner: I am a practitioner with admitting privileges, knowledge of patient current condition, hospital course, and medical plan of care. Services: Services provided to patient in accordance with Admission requirements found in Title 42 Section 412.3 of the Code of Federal Regulations <Nadeem Connelly - Last Filed: 02/03/22 02:21> Patient History Date of Service: 02/03/22 Reason for admission: DKA, Severe Sepsis, perirectal abscess History of Present Illness: 51-year-old female with history of insulin-dependent diabetes, previous CVA presents the emergency department for altered mental status, concern for abscess. reports she been dealing with an abscess on and off over the course last few days at home, tonight she started becoming delirious when he asked if she had been taking her medication she reported that she has been out of her medication for an unknown amount of time, believes likely weeks to months without her insulin. Patient appears ill, very dry arrival to the emergency department she met criteria for sepsis given tachycardia, tachypnea with suspected source of infectionperirectal abscess/cellulitis. Sepsis bundle was initiated, blood cultures obtained before antibiotics labs were significant for leukocytosis with white blood cell count 1.7 and 15% bandemia lactate 2.4 initially repeat pending sodium 135 bicarb less than 8 and 1.63 GFR 38 glucose 483 urine with 4+ ketones 2+ blood 2+ protein no nitrite or leukoesterase present. CT abdomen pelvis without contrast pending to further evaluate possible perirectal. Abscess ABG was obtained which revealed a pH of 6.863, PCO2 14.9, HCO3 2.5. Patient was given 2 Amps of bicarb and started on insulin drip, she was given 30 cc/kg IV fluid bolus as well. We will admit to ICU for further evaluation and management of DKA, severe sepsis. 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 - Family History Father -: GI disease - Social History Smoking Status: Current every day smoker Counseled patient to stop smoking for: less than 10 minutes Alcohol use: Yes CD- Drugs: No Caffeine use: Yes Place of Residence: Home <Nadeem Connelly - Last Filed: 02/03/22 02:21> Date of Service: 02/04/22 <Jose Chavez - Last Filed: 02/04/22 08:49> Allergies latex Allergy (Verified 01/13/17 21:31) Hives Home Medications: RX: Metformin HCl 1,000 mg PO BIDWM 01/13/17 RX: Clopidogrel Bisulfate [Plavix*] 75 mg PO DAILY #30 tablet 01/15/17 RX: Cholecalciferol (Vitamin D3) [Vitamin D3] 5,000 unit PO DAILY 01/31/20 RX: Empagliflozin [Jardiance] 25 mg PO DAILY 01/31/20 RX: Gabapentin 300 mg PO BID 01/31/20 RX: Insulin Lispro [Humalog Kwikpen U-100] 5 units SQ TID 01/31/20 RX: Losartan Potassium 50 mg PO DAILY 01/31/20 RX: Insulin Glargine Human [Lantus*] 35 units SQ DAILY WITH BREAKFAST ml 02/03/20 RX: Ezetimibe 10 tab PO DAILY 02/03/22 Review of Systems is unable to be obtained (AMS) <Nadeem Connelly - Last Filed: 02/03/22 02:21> Physical Examination - Physical Exam General: Alert, In no apparent distress, Oriented x1 HEENT: Atraumatic, PERRLA, Other (MM dry, cracked), EOMI, Sclerae nonicteric Neck: Supple, 2+ carotid pulse no bruit, No LAD, Without JVD or thyroid abn ormality Respiratory: Clear to auscultation bilaterally, Normal air movement Cardiovascular: Regular rate/rhythm, Normal S1 S2 Capillary refill: <2 Seconds Gastrointestinal: Normal bowel sounds, No tenderness Musculoskeletal: No tenderness Integumentary: No rashes Neurological: Normal gait, Normal speech, Normal strength at 5/5 x4 extr, Normal tone, Normal affect Lymphatics: No axilla or inguinal lymphadenopathy Rectal: Induration, Tenderness, Other (Left gluteal area near rectum indurated, surrounding cellulitis present) - Studies Laboratory Data (last 24 hrs) 02/02/22 23:35: PT 10.4, INR 0.95, APTT 39.1 H 02/02/22 23:35: Sodium 135 L, Potassium 3.6, BUN 13, Creatinine 1.63 H, Glucose 483 H*, Total Bilirubin 0.5, AST 5 L, ALT 22, Alkaline Phosphatase 165 H 02/02/22 23:35: WBC 21.70 H*, Hgb 14.9, Hct 47.6 H, Plt Count 470 H <Nadeem Connelly - Last Filed: 02/03/22 02:21> - Studies Microbiology Data (last 24 hrs): 02/03/22 00:10 Blood - Blood Anaerobic Blood Culture - Final <Jose Chavez - Last Filed: 02/04/22 08:49> Assessment and Plan - Plan Assessment: Diabetes mellitus type 2-insulin dependent with DKA Severe sepsis secondary to perirectal abscess/cellulitis STEVE HX of CVA Plan: Diabetes mellitus type 2-insulin dependent with DKA: Severe DKA/metabolic acidosis, Given 30cc/kg IVF bolus in ED as well as 2 amps of bicarb. Repeat ABG/chemistry pending. Hourly accuchecks, Q4H BMPs, insulin drips, aggressive K containing IVF, A1c in the morning. Pt noncompliant with meds per , also with severe sepsis 2/2 perirectal cellulitis/abscess. Severe sepsis secondary to perirectal abscess/cellulitis: SIRS criteria present with tachycardia, tachypnea, leukocytosis, bandemia. Source of infection perirectal cellulitis vs abscess, lactate 2.4. Blood cultures obtained prior to abx, given 30cc/kg IVF bolus, broad spectrum abd with vanc/zosyn. Repeat lactate pending. No hypotension noted thus far. STEVE: AMS currently, no CPAP tonight. Restart when appropriate. HX of CVA: Continue home meds when taking PO DVT PPX: Lovenox Code status: Full Discharge Plan: Home Plan to discharge in: Greater than 2 days - Advance Directives Does patient have a Living Will: No Does patient have a Durable POA for Healthcare: No - Code Status/Comfort Care Code Status Assessed: Yes (Full code) Critical Care: No Time Spent Managing Pts Care (In Minutes): 70 <Nadeem Connelly - Last Filed: 02/03/22 02:21> Physician Review: Patient Assessed, Agree with Above Assessment and Plan Physician Review Additional Text: Ms. Eastman was seen and evaluated by myself on 02/03/2022 - Agree with FREEZING ROOM WORKER Maricel's H&P <Jose Chavez - Last Filed: 02/04/22 08:49>
[2022-02-03 02:42] LABS: Absolute Lymphocytes (CBC) 1.4 K/uL (0.7-4.9); Hematocrit 43.5 % (36.0-45.0); Lymphocytes % 6.2 % (15.3-44.8); MCV 98.6 fL (80-100); MPV 8.3 fL (7.6-11.3); RBC Red Blood Cell Count 4.41 M/uL (3.86-4.86)
[2022-02-03] MEDS ORDERED: NACHLORIDE 0.45% 1,000 ML with POTASSIUM CL 20 MEQ IV SCH ×6 (03:00→20:00)
[2022-02-03] MEDS ORDERED: D5.45NS W/KCL 20MEQ 1,000 ML IV SCH (03:00)
[2022-02-03 03:02] LABS: BUN Blood Urea Nitrogen 14 mg/dL (7-18); Glomerular Filtration Rate 43 ml/min (=/>90); HDL Cholesterol 41 mg/dL (40-60); Magnesium 2.4 mg/dL (1.8-2.4); Potassium 3.1 mmol/L (3.5-5.1); Sodium Level 140 mmol/L (136-145)
[2022-02-03 03:03] LABS: Bicarbonate < 8 mmol/L (21-32); Glucose Level 445 mg/dL (74-106)
[2022-02-03 03:14] LABS: LDL, Direct 73 mg/dL (100-129)
[2022-02-03] MEDS ORDERED: VANCOMYCIN 500 MG in NA CHLORIDE 0.9% 100 ML IVPB ONE (04:00)
[2022-02-03 05:08] LABS: Arterial Blood Carboxyhemoglob 1.4 % (0-1.5); Blood Gas Oxyhemoglobin 93.9 % (94-97); Blood O2 Saturation 96.8 % (92-98.5)
[2022-02-03] MEDS ORDERED: Ringers Lactate 1,000 ML IV ONE ×2 (05:59→14:18)
[2022-02-03] MEDS ORDERED: NACHLORIDE 0.45% 0 ML IV ONE (06:00)
[2022-02-03] MEDS ORDERED: KCL 20 MEQ/100 mL IVPB 0 ML IV ONE (06:00)
[2022-02-03] MEDS ORDERED: NA CHLORIDE 0.9% 0 ML ONE (06:10)
[2022-02-03] MEDS ORDERED: VANCOMYCIN 500 MG/VIAL ONE ×2 (06:10)
[2022-02-03 07:16] LABS: BUN Blood Urea Nitrogen 15 mg/dL (7-18); Glomerular Filtration Rate 47 ml/min (=/>90); Glucose Level 313 mg/dL (74-106); Sodium Level 143 mmol/L (136-145)
[2022-02-03 07:17] LABS: Bicarbonate < 8 mmol/L (21-32); Potassium 2.9 mmol/L (3.5-5.1)
[2022-02-03] MEDS ORDERED: KCL 20 MEQ/100 mL IVPB 100 ML IV ONE ×2 (07:59→10:23)
[2022-02-03] MEDS: KCL 20 MEQ/100 mL IVPB 20 MEQ/100 ML BAG IV SCH ×2 (08:00→10:00)
[2022-02-03] MEDS: PIPER TAZO 3.375 GM in NA CHLORIDE 0.9% 100 ML IV SCH ×2 (09:00→17:00)
[2022-02-03] MEDS: ENOXAPARIN 40 MG/0.4 ML SQ SCH (09:00)
[2022-02-03] MEDS ORDERED: PIPER TAZO 3.375 GM in NA CHLORIDE 0.9% 100 ML IV SCH (09:00)
[2022-02-03] MEDS ORDERED: ENOXAPARIN 40 MG/0.4 ML SQ ONE (09:23)
[2022-02-03] MEDS ORDERED: PIPERACIL/TAZO 3.375 GM VIAL IV ONE ×2 (09:23→17:22)
[2022-02-03 09:47] LABS: Arterial Blood Carboxyhemoglob 1.5 % (0-1.5); Blood Gas Oxyhemoglobin 88.5 % (94-97); Blood O2 Saturation 91.3 % (92-98.5)
[2022-02-03] MEDS ORDERED: NA BICARB IV SCH ×3 (10:00)
[2022-02-03] MEDS ORDERED: POTASSIUM CL IV SCH ×3 (10:00)
[2022-02-03] MEDS ORDERED: D5W IV SCH ×3 (10:00)
--- NOTE | 2022-02-03 12:11 | EKG ---
Test Date: 2022-02-03 Test Time: 02:10:13 Naval Engineer: SHEREE MEASUREMENT RESULTS: Intervals: Rate: 101 VT: 122 QRSD: 106 QT: 406 QTc: 526 [place]: P: 71 VT: 122 QRS: 65 T: -41 INTERPRETIVE STATEMENTS: Sinus tachycardia Possible Inferior infarct, age undetermined ST & T wave abnormality, consider lateral ischemia Abnormal ECG Compared to ECG 07/23/2020 14:44:51 Myocardial infarct finding now present ST (T wave) deviation now present Possible ischemia now present Sinus rhythm no longer present Short VT interval no longer present Electronically Signed On 02-03-22 12:10:18 DIRECTOR OCCUPATIONAL by Delvin Mccray
[2022-02-03 12:19] LABS: Potassium 3.5 mmol/L (3.5-5.1)
--- NOTE | 2022-02-03 13:14 | RAD REPORT ---
EXAM DESCRIPTION: RAD - Chest Single View - 02/02/2022 11:55 pm CLINICAL HISTORY: 51-year-old female with altered mental status. TECHNIQUE: Single view, AP portable chest was obtained. COMPARISON: None. FINDINGS: The patient is rotated limiting evaluation. Unremarkable cardiac and mediastinal silhouett e. Heart size is normal. Mild interstitial prominence versus vascular crowding and low lung volumes. Low lung volumes grossly clear without focal opacity, pneumothorax or pleural effusions. The visual ized bones are within normal limits. IMPRESSION: Mild interstitial prominence versus vascular crowding and low lung volumes. Follow-up im aging is recommended. Electronically signed by: Ni Carrero MD 02/03/2022 12:20 AM AGED OR DISABLED CARE WORKER Due to temporary technical issues with the PACS/Fluency reporting system, reports are being signed by the in house radiologists without review as a courtesy to insure prompt reporting. The interpreting radiologist is fully responsible for the content of the report.
--- NOTE | 2022-02-03 13:54 | RAD REPORT ---
EXAM DESCRIPTION: CT - Abdomen Pelvis Wo Contrast - 02/03/2022 3:02 am CLINICAL HISTORY: The patient is 51 years old and is Female; Sepsis TECHNIQUE: Axial computed tomography images of the abdomen and pelvis without intravenous contrast. Sagittal and coronal reformatted images were created and reviewed. This CT exam was performed usi ng one or more of the following dose reduction techniques: automated exposure control, adjustment o f the mA and/or kV according to patient size, and/or use of iterative reconstruction technique. COMPARISON: 01/31/2020 CT abdomen pelvis without contrast FINDINGS: LUNG BASES: Dependent bibasilar bandlike consolidation, favoring subsegmental atelectasi s, but cannot exclude infectious etiology. HEART: Moderate mitral annular calcification. ABDOMEN: LIVER: Unremarkable. GALLBLADDER AND BILE DUCTS: Cholecystectomy. No ductal dilation. PANCREAS: Diffuse fatty atrophy of the pancreas with no appreciable ductal dilatation or suspicious mass or lesion. SPLEEN: Unremarkable. No splenomegaly. ADRENALS: Unremarkable. No mass. KIDNEYS AND URETERS: Unremarkable. No obstructing stones. No hydronephrosis. STOMACH AND BOWEL: Mild ascending colon diverticulosis without evidence of acute diverticulitis. No obstruction. PELVIS: APPENDIX: No findings to suggest acute appendicitis. BLADDER: Unremarkable. No stones. REPRODUCTIVE: Unremarkable as visualized. ABDOMEN and PELVIS: INTRAPERITONEAL SPACE: Unremarkable. No free air. No significant fluid collection. BONES/JOINTS: Mild multilevel degenerative changes of the spine with no acute osseous abnormality. Dense sclerotic foci in the T10 vertebra, right pubic ramus, and left femoral neck, favoring benign e nostoses. No dislocation. SOFT TISSUES: Asymmetric skin thickening and subcutaneous inflammation and stranding in the left pe rineum, with no overt fluid collection, appreciable tract, or subcutaneous emphysema. VASCULATURE: Mild calcified atherosclerosis of the abdominal aorta without aneurysmal dilatation. LYMPH NODES: Prominent appearance of bilateral inguinal lymph nodes with retention of normal fatty hi lum and morphology, favoring reactive etiology. IMPRESSION: 1. Dependent bibasilar bandlike consolidation, favoring subsegmental atelectasis, but cannot exclude infectious etiology. 2. Asymmetric skin thickening and subcutaneous inflammation and stranding in the left perineum, wit h reactive appearing bilateral inguinal lymph nodes and no overt fluid collection, appreciable tract, or subcutaneous emphysema. Suspected inflammatory versus infectious etiology. Clinical correlation r ecommended. 3. Otherwise, allowing for lack of intravenous contrast, no acute abnormality identified within the a bdomen or pelvis. Electronically signed by: Gian Washington MD 02/03/2022 3:25 AM COOK BARBECUE Due to temporary technical issues with the PACS/Fluency reporting system, reports are being signed by the in house radiologists without review as a courtesy to insure prompt reporting. The interpreting radiologist is fully responsible for the content of the report.
[2022-02-03] MEDS ORDERED: ACETAMINOPHEN 325 MG TABLET PO PRN (14:01)
[2022-02-03] MEDS ORDERED: Ringers Lactate 500 ML IV ONE (14:14)
[2022-02-03] MEDS ORDERED: FENTANYL CITR 100 MCG/2 ML IV ONE (15:11)
[2022-02-03] MEDS ORDERED: FENTANYL CITR 100 MCG/2 ML ONE (15:17)
[2022-02-03] MEDS ORDERED: ONDANSETRON 4 MG/2 ML VIAL ONE (15:17)
[2022-02-03 15:35] LABS: Potassium 3.3 mmol/L (3.5-5.1)
[2022-02-03] MEDS: ONDANSETRON 4 MG/2 ML VIAL IV PRN ×2 (15:37→23:46)
[2022-02-03 15:48] LABS: Arterial Blood Carboxyhemoglob 1.8 % (0-1.5); Blood Gas Oxyhemoglobin 90.7 % (94-97); Blood O2 Saturation 93.7 % (92-98.5)
--- NOTE | 2022-02-03 16:18 | P.PN ---
Brief Renal note (full consult to follow): Pt with MARTINEZ in the setting of vol depletion, DKA, infection/early sepsis, ARB/SGLT2i use, other. Pt presented with severe acidemia and AG metab acidosis on presentation, pH has now improved to > 7.2 and there is appropriate respiratory alkalosis. AG 15 on the last check, lactic acid was not sig elevated. Pt remains on insulin drip, will back off bicarb content in fluids to prevent any rebound alkalosis. Na level at ULN, will switch to D51/2NS + 50 meq sodium bicarb + 20 meq KCL at 125 cc/h and cont to monitor chem panel. Infectious w/u and Abx per primary team. Case discussed with Dr. Chavez earlier in the day.
[2022-02-03] MEDS: POTASSIUM CL IV SCH ×3 (17:00)
[2022-02-03] MEDS: NA BICARB IV SCH ×3 (17:00)
[2022-02-03] MEDS: D5 NS IV SCH ×3 (17:00)
[2022-02-03 17:59] LABS: Potassium 3.2 mmol/L (3.5-5.1)
[2022-02-03] MEDS: MORPHINE 2 MG/ML SYR IV PRN (21:21)
[2022-02-03 21:59] LABS: BUN Blood Urea Nitrogen 19 mg/dL (7-18); Bicarbonate 15 mmol/L (21-32); Glomerular Filtration Rate 35 ml/min (=/>90); Glucose Level 209 mg/dL (74-106); Potassium 3.4 mmol/L (3.5-5.1); Sodium Level 146 mmol/L (136-145)
[2022-02-04] MEDS: PIPER TAZO 3.375 GM in NA CHLORIDE 0.9% 100 ML IV SCH ×3 (00:55→18:22)
[2022-02-04] MEDS: MORPHINE 2 MG/ML SYR IV PRN ×3 (01:07→21:53)
[2022-02-04] MEDS: D5 NS IV SCH ×9 (01:08→23:37)
[2022-02-04] MEDS: POTASSIUM CL IV SCH ×3 (01:08)
[2022-02-04] MEDS: NA BICARB IV SCH ×9 (01:08→23:37)
[2022-02-04 02:44] LABS: BUN Blood Urea Nitrogen 21 mg/dL (7-18); Bicarbonate 17 mmol/L (21-32); Glomerular Filtration Rate 30 ml/min (=/>90); Glucose Level 179 mg/dL (74-106); Sodium Level 146 mmol/L (136-145)
[2022-02-04 02:57] LABS: Potassium 2.9 mmol/L (3.5-5.1)
[2022-02-04] MEDS: VANCOMYCIN 1.75 GM in NA CHLORIDE 0.9% 500 ML IVPB SCH (03:12)
[2022-02-04] MEDS: KCL 20 MEQ/100 mL IVPB 20 MEQ/100 ML BAG IV SCH ×3 (03:12→07:05)
[2022-02-04 07:08] LABS: Absolute Lymphocytes (CBC) 0.9 K/uL (0.7-4.9); Hematocrit 38.6 % (36.0-45.0); Lymphocytes % 8.1 % (15.3-44.8); MCV 91.3 fL (80-100); MPV 8.1 fL (7.6-11.3); RBC Red Blood Cell Count 4.23 M/uL (3.86-4.86)
[2022-02-04] MEDS ORDERED: LORazepam 2 MG/ML VIAL IV ONE ×3 (07:39→22:01)
[2022-02-04 07:48] LABS: Magnesium 1.8 mg/dL (1.8-2.4); Potassium 3.3 mmol/L (3.5-5.1)
[2022-02-04 07:51] LABS: Phosphorus 0.8 mg/dL (2.5-4.9)
[2022-02-04] MEDS ORDERED: POTASSIUM PHOS 20 MM in NA CHLORIDE 0.9% 500 ML IV ONE (08:04)
--- NOTE | 2022-02-04 08:36 | RAD REPORT ---
EXAM DESCRIPTION: CT - Head Brain Wo Cont - 02/04/2022 8:18 am CLINICAL HISTORY: AMS COMPARISON: No comparisonsHead Brain Wo Cont dated 01/13/2017 TECHNIQUE: Axial 5 mm thick images of the head were obtained without IV contrast. All CT scans are performed using dose optimization technique as appropriate and may include automated exposure control or mA/KV adjustment according to patient size. FINDINGS: No intracranial hemorrhage, mass, edema or shift of mid-line structures. No acute cortical based infarction. No cortical edema or sulcal effacement. Ventricles are normal. No abnormal extra-a xial fluid collections. Focal decreased attenuation is present along the posterior limb internal caps ule junction with the thalamus. This is similar or slightly smaller than seen in 2017. This could be an old lacunar type infarction. Perivascular space is possible. This is not of acute clinical signifi cance. Mastoid air cells and visualized portions of the paranasal sinuses are clear. No acute bony findings. IMPRESSION: CT head examination shows no acute intracranial process. Above detailed findings are not significantly different from the 2017 comparison.
[2022-02-04] MEDS: THIAMINE 200 MG/2 ML INJ IVP SCH (08:41)
[2022-02-04] MEDS ORDERED: THIAMINE 200 MG/2 ML INJ IVP ONE (08:47)
[2022-02-04] MEDS ORDERED: FENTANYL CITR 100 MCG/2 ML ONE (08:48)
[2022-02-04] MEDS ORDERED: propofoL 200 MG/20 ML VIAL IV ONE (08:48)
[2022-02-04] MEDS ORDERED: LIDOCAINE 2% MPF 5 ML VIAL ONE (08:49)
[2022-02-04] MEDS: NA CHLORIDE 0.9% 1,000 ML ONE ×2 (09:26→09:34)
[2022-02-04] MEDS ORDERED: Phenylephrine HCl 10 MG/ML 1 ML VIAL ONE (09:40)
[2022-02-04] MEDS ORDERED: NS 0.9% VIAL 20 ML ONE (09:55)
--- NOTE | 2022-02-04 10:11 | CON ---
Date of Consultation: 02/03/2022 Reason For Service: Perianal abscess, cellulitis. History Of Present Illness: This is the case of a female, who comes to us with , altered m ental status. During the workup, the patient found to have an induration of the left perianal region and a surgical consult was obtained for the possibility of perianal abscess. She comes to the [facility] with . The patient has been admitted to the ICU for . Most of the informati on is obtained from the chart since the patient has altered mental status and cannot give specific in formation. The doctor who admitted her today, they told me that at one point she mentioned that she was having chronic perianal tenderness. Past Medical History: Includes diabetes insulin dependent, neuropathy, CVA. 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 Family History: Unknown. Social History: She and drink alcohol. Once again, I cannot tell the amount she has had, she cannot tell us. Review of Systems: Unable to be obtained. Physical Examination: General: The patient is awake, alert. HEENT: Pupils equal and reactive. Neck: Supple. Respiratory: Bilateral breath sounds. Abdomen: Soft and depressible. Perianal region shows induration, mainly on the left of the perianal area going to the buttocks. I cannot see any fluctuance at this moment, but the cellulitis getting matured into an abscess. It has appearance of an abscess in that region, although once again, there is no drainage. It is tender, warm, and erythematous. Laboratory Data: WBC count is 22.6 with hemoglobin of 13 and platelets of 360 neutrophils is 15. INR 0.95. The sodium on admission was 135, the bicarb was 0.8, glucose 483 to 500. Blood g as done initially with 6.8 pH, pCO2 of 14.9. CAT scan of the abdomen and pelvis official result is s till pending. Preliminary, there is an induration and inflammation over the perianal area. We did n ot see any large fluid collection. Assessment: It is a 51-year-old patient with cellulitis and perianal abscess . The patien t needs EUA, anoscopy, proctoscopy on the perianal abscess. I discussed the case with her primary do ctor. They are still working on medical issues. They cannot get clearance for surgery at this momen t. few hours until probably tomorrow her stable enough to be able to address t hat issue. The benefits, alternatives, and risks discussed with the patient, which include, but not limited to infection, bleeding, damage to adjacent structures, anal stricture, and incontinence. She will require wound care. Family is not present at this time. We are trying to get the family to ex plain all this again. ARSLAN/DAVID Voice ID: [id number] Report ID: [id number]
--- NOTE | 2022-02-04 10:18 | P.BOP ---
Preoperative diagnosis: DKA, perianal abscess Postoperative diagnosis: same Primary procedure: EUA, anoscopy, rigid proctoscopy Secondary procedure: Incision and drainage of perianal abscess 7 x 6 x 1.5cm Estimated blood loss: <10cc Specimen: gangrenous tissue and culture Findings: abscess with necrotic subQ and skin Anesthesia: General Complications: None Transferred to: Recovery Room Condition: Good
[2022-02-04 10:32] LABS: Arterial Blood Carboxyhemoglob 1.7 % (0-1.5); Blood Gas Oxyhemoglobin 88.9 % (94-97); Blood O2 Saturation 92.1 % (92-98.5)
--- NOTE | 2022-02-04 11:11 | P.CNS ---
Date of Consult: 02/04/22 Reason for Consult: MARTINEZ, metab acidosis, hypokalemia Requesting Physician: Jose Chavez Chief Complaint: DKA, Severe Sepsis, perirectal abscess History of Present Illness: Pls note hx obtained largely through chart review as pt lethargic post anesthesia and prev agitated/altered pre-surgery. Pt is a 51-year-old female with history of insulin-dependent diabetes with unspecified complications, uncontrolled withe markedly elevated A1c on admission, previous CVA per reports and possible evidence of that on CT scan done for AMS earlier this AM presented yesterday to the emergency department for altered mental status, concern for possible wero-rectal abscess. Pt has possibly been out of medication for some time. Pt met criteria for sepsis on admission, pt was severely acidemic on presentation. Pt was placed on DKA protocol and given several amps of bicarb and placed on a bicarb drip. Pt was taken for surgery this AM and seen in the PACU post procedure in stable condition. Allergies latex Allergy (Verified 01/13/17 21:31) Hives Home Medications: Metformin HCl 1,000 mg PO BIDWM 01/13/17 Clopidogrel Bisulfate [Plavix*] 75 mg PO DAILY #30 tablet 01/15/17 Cholecalciferol (Vitamin D3) [Vitamin D3] 5,000 unit PO DAILY 01/31/20 Empagliflozin [Jardiance] 25 mg PO DAILY 01/31/20 Gabapentin 300 mg PO BID 01/31/20 Insulin Lispro [Humalog Kwikpen U-100] 5 units SQ TID 01/31/20 Losartan Potassium 50 mg PO DAILY 01/31/20 Insulin Glargine Human [Lantus*] 35 units SQ DAILY WITH BREAKFAST ml 02/03/20 Ezetimibe 10 tab PO DAILY 02/03/22 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 Psychosocial/ Personal History: Patient lives with her , 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 - Family History Father Medical History: GI disease - Social History Smoking Status: Unknown if ever smoked Alcohol use: Yes CD- Drugs: No Caffeine use: Yes Place of Residence: Home Review of Systems is unable to be obtained Physical Examination Temp Pulse Resp BP Pulse Ox 97.9 F 118 H 17 160/96 H 92 02/04/22 10:39 02/04/22 10:39 02/04/22 10:39 02/04/22 10:39 02/04/22 08:00 General: In no apparent distress, Other (Lethargic post anesthesia) HEENT: Atraumatic, Normocephalic, Other (NC present) Neck: Supple Respiratory: Clear to auscultation bilaterally, Normal air movement Cardiovascular: No edema, Normal S1 S2, Other (Tachycardic) Gastrointestinal: Soft and benign, Non-distended Musculoskeletal: No contractures, No erythema Integumentary: No rashes Neurological: Other (Lethargic post anesthesia, medication, no tremors or myoclonus) Conclusions/Impression: A/P 1. Abnormal results of kidney function studies 2. Stage II MARTINEZ 3. Severe acidemia on presentation 2nd to AG metab acidosis with DKA, other 4. Hypokalemia 5. Volume depletion, hypernatremia 6. Sepsis 2nd to unspecified organism 7. Hypophosphatemia 8. AMS 2nd to toxic metab encephalopathy -Cr level has been steadily rising with MARTINEZ 2nd to multifactorial etiology with hypotension, early sepsis, volume depletion, DKA, other but fortunately is non oliguric and will see if levels peak early on or cont to rise suggesting some intrinsic injury/mild ATN, other -Acidemia improved with pH > 7.2 on last check but with Ativan given for agitation overnight and now anesthesia, that may blunt some of the resp alkalosis compensation. Pt still has some AG and bicarb deficit, with deficit still > 300 meq/L. -Will adjust IVF to D51/4NS with sodium bicarb at 50 meq added at 100 cc/hr, will monitor closely for gap/deficit improving and prev stopped bicarb drip to prevent any rapid rebound alkalosis -DKA and Insulin drip management per primary team. -Abx per primary team, f/u cultures, monitor Vanc levels closely and dose meds for reduced CrCl. -Cont to replete lytes, pt has received 80 meq of KCL overnight into this AM, so will d/c KCL added to maintenance IVF. Phos < 1.0 this AM, 20 mmol KPhos added, will recheck levels post replacement. Bill Tran MD, JUANAN
[2022-02-04] MEDS: ENOXAPARIN 40 MG/0.4 ML SQ SCH (11:59)
--- NOTE | 2022-02-04 12:22 | P.PN ---
Subjective Date of Service: 02/04/22 Chief Complaint: DKA, Severe Sepsis, perirectal abscess This morning, she is alert and oriented x2 to person and place. She is not oriented to situation. She became significantly agitated overnight, requiring lorazepam and soft wrist restraints. Review of Systems 10-point ROS is otherwise unremarkable General: Other (agitated) Musculoskeletal: Back Pain (buttock) Neurological: Confusion Physical Examination - Vital Signs Temperature: 97.7 F Blood Pressure: 138/77 Pulse: 114 Respirations: 25 Pulse Ox (%): 92 - Physical Exam General: Alert, In no apparent distress, Oriented x2 HEENT: Atraumatic, Mucous membr. moist/pink, EOMI, Sclerae nonicteric Neck: Supple Respiratory: Clear to auscultation bilaterally, Diminished Cardiovascular: No edema, Regular rate/rhythm, Normal S1 S2, No gallops, No rubs, No murmurs Capillary refill: <2 Seconds Gastrointestinal: Normal bowel sounds, Soft and benign, Non-distended, No tenderness, No rebound, No guarding Musculoskeletal: No clubbing Integumentary: Rash(es) (left gluteal perianal abscess. Exam performed alongside RESTORATIVE ART EMBALMER, [place]) Neurological: Normal strength at 5/5 x4 extr, Normal tone, Sensation intact - Studies Microbiology Data (last 24 hrs): 02/03/22 00:10 Blood - Blood Anaerobic Blood Culture - Final Assessment And Plan - Plan # Diabetic Ketoacidosis in Type II Diabetes Mellitus - Likely due to medication noncompliance - Hgb A1c > 14.0 % - Continue IV fluids and insulin drip per DKA protocol - pH, anion gap, and glucose levels improving - To remain ICU status for today # Severe Sepsis likely secondary to Perianal Abscess She meets sepsis criteria based on HR > 90 bpm, RR > 20 breaths/min or CO2 < 32 mmHg, WBC > 12,000, and the suspected source is a perianal abscess. Severe sepsis is suspected due to concern for tissue hypoperfusion/organ dysfunction based on creatinine >2.0 mg/dL (without ESRD) and lactic acid > 2 mmol/L. - General Surgery consulted and spoke with Dr. Lang - recommendations appreciated - Plan for incision and drainage today - Sepsis order set was initiated - Lactate trend: 2.4 -> 2.0 - Blood cultures drawn before antibiotics were given - Broad spectrum antibiotics started: Vancomycin + Cefepime - In regards to fluids: - 30 mL/kg of IV fluids was given based on patient's actual body weight # KDIGO Stage I Acute Kidney Injury on Chronic Kidney Disease Stage III? # High Anion Gap Metabolic Acidosis - Nephrology consulted and spoke with Dr. Tran - recommendations appreciated - Creatinine = 2.21 (baseline creatinine ~1.3-1.4?) - Urinalysis = 2+ blood, 2+ protein, 2+ glucose, 4+ ketones - IV fluids as mentioned above - Monitor creatinine and urine output - If worsening, obtain renal ultrasound - Renally dose medications # Acute Toxic Metabolic Encephalopathy likely secondary to above # History of Cerebrovascular Accident - Evaluation thus far: - Labs (02/04) = Na+ 147, Ca2+ 8.4, CO2 16, Glucose 203, Ammonia pending, BUN 21, Vitamin B12 pending, TSH pending - ABG (02/04) = pH 7.28, PCO2 26.7, PO2 60.0 - Blood cultures x 2 drawn - Urinalysis = 2+ blood, 2+ protein, 2+ glucose, 4+ ketones - CT head = pending - She denies alcohol use - Management plan: - Thiamine 500 mg IV x 1, followed by 100 mg IV daily - Treat above conditions as described above # Obstructive Sleep Apnea - Resume home CPAP when able Jose Chavez M.D.
--- NOTE | 2022-02-04 15:48 | RAD REPORT ---
EXAM DESCRIPTION: RAD - Chest Single View - 02/04/2022 3:42 pm CLINICAL HISTORY: L PICC line placement COMPARISON: Chest Single View dated 02/02/2022; Chest Single View dated 07/23/2020; Chest Single View dated 01/31/2020; Chest Pa And Lat (2 Views) dated 12/05/2015 FINDINGS: Portable chest was obtained following placement of a left upper extremity PICC line. The c atheter tip projects over the right atrium.. Advise 3-4 cm retraction for optimal placement.
[2022-02-04 16:20] LABS: Thyroid Stimulating Hormone 1.06 uIU/mL (0.360-3.740)
[2022-02-04 16:26] LABS: Potassium 2.4 mmol/L (3.5-5.1)
[2022-02-04 18:08] LABS: Potassium 3.3 mmol/L (3.5-5.1)
[2022-02-04] MEDS: INSULIN -REGULAR HUMAN 100 UNIT in NA CHLORIDE 0.9% 100 ML IV SCH (18:21)
[2022-02-04] MEDS ORDERED: POTASSIUM PHOS 10 MM in NA CHLORIDE 0.9% 250 ML IV ONE (19:00)
--- NOTE | 2022-02-04 19:03 | OP ---
Date of Procedure: 02/04/2022 Surgeon: Rodolfo Lang MD Preoperative Diagnoses: Diabetic ketoacidosis and necrotic wound in perianal region, perianal absces s. Postoperative Diagnoses: Diabetic ketoacidosis and necrotic wound in perianal region, perianal absce ss. Procedures: EUA, anoscopy, proctoscopy, incision and drainage of perianal abscess with debridement o f necrotic wound, about 7 x 6 x 1.5 cm Anesthesia: General plus local. Complications: None. Packing: Wet-to-dry. Indication: This is the case of a 51-year-old patient, who comes to us with DKA. She also found to have a perianal abscess. The wound today is necrotic, has gangrenous skin present, coming off, this needs to be fixed. So, the medical doctor worked all night trying to get her stable enough to get th is done. Locally, they did a good job. They allowed me this morning to do debridement under anesthe best and also rest of the procedure. The benefits, alternatives, and risks of the procedure above ful ly explained to the patient and , which include, but not limited to infection, bleeding, damag e to adjacent structures, anesthesia complication, nonhealing wound, PR, and even . She and the understand this may not relieve any symptoms. She might require wound care. This is not a colonoscopy, so in the future she might have to have a formal colonoscopy. The signed a cons ent. Procedure In Detail: The patient was brought to the operating room, placed in supine position. Anes thesia was done without complications. The patient was placed in lithotomy position. Rectal examina tion was done with the findings of necrotic wound in the left perianal region with purulent discharge coming out already. We did a rigid proctoscope all the way about to 12 cm, limited by the amount of stools present, and that was done under direct visualization without resistant. We did not see any evidence of connection of this abscess to the inside of the rectum. Then, we put an anoscope with a window on the side, once again that helped me to visualize the tissue around the area and we noticed this to be mostly in the outer side of the perianal region. With the help of a Bovie cauterizer and a knife, we proceeded to debride the necrotic tissue present and that led us into an abscess cavity. The cavity is about 7 x 6 x 1.5 cm. The necrotic tissue was removed. The pus was removed. The cav ity was then cultured. Then, hemostasis was obtained and covered with wet-to-dry dressing. The jeannie ent tolerated the procedure well. The patient sent to recovery in stable condition. The patient flores l be sent back to the ICU. ARSLAN/DAVID Voice ID: [id number] Report ID: [id number]
[2022-02-04] MEDS: ONDANSETRON 4 MG/2 ML VIAL IV PRN (21:55)
[2022-02-05] MEDS: PIPER TAZO 3.375 GM in NA CHLORIDE 0.9% 100 ML IV SCH ×2 (01:00→08:52)
[2022-02-05] MEDS ORDERED: KCL 20 MEQ/100 mL IVPB 100 ML IV ONE (04:30)
[2022-02-05] MEDS: KCL 20 MEQ/100 mL IVPB 20 MEQ/100 ML BAG IV SCH ×3 (04:30→08:51)
[2022-02-05] MEDS: VANCOMYCIN 1.75 GM in NA CHLORIDE 0.9% 500 ML IVPB SCH (04:30)
[2022-02-05] MEDS: D5 NS IV SCH ×2 (05:05)
[2022-02-05] MEDS: NA BICARB IV SCH ×2 (05:05)
[2022-02-05 05:50] LABS: Magnesium 1.6 mg/dL (1.8-2.4)
[2022-02-05 05:51] LABS: Phosphorus 1.9 mg/dL (2.5-4.9)
[2022-02-05 05:53] LABS: Absolute Lymphocytes (CBC) 1.6 K/uL (0.7-4.9); Hematocrit 33.6 % (36.0-45.0); Lymphocytes % 15.7 % (15.3-44.8); MCV 90.4 fL (80-100); MPV 8.1 fL (7.6-11.3); RBC Red Blood Cell Count 3.72 M/uL (3.86-4.86)
[2022-02-05 06:03] LABS: Arterial Blood Carboxyhemoglob 1.6 % (0-1.5); Blood Gas Oxyhemoglobin 86.7 % (94-97); Blood O2 Saturation 89.5 % (92-98.5)
[2022-02-05 06:14] LABS: Potassium 2.6 mmol/L (3.5-5.1)
[2022-02-05 06:19] LABS: Potassium 2.9 mmol/L (3.5-5.1)
[2022-02-05] MEDS: LORazepam 2 MG/ML VIAL IV PRN ×3 (07:50→22:28)
[2022-02-05] MEDS ORDERED: Magnesium Sulfate 2gm IVPB 2 G/50 ML BAG IV ONE (08:10)
[2022-02-05] MEDS ORDERED: POTASSIUM PHOS IN 0.9 % NACL 15 MMOL/250 ML BAG IV ONE (08:46)
[2022-02-05] MEDS: D5W 1,000 ML with POTASSIUM CL 20 MEQ IV SCH ×4 (08:51→23:07)
[2022-02-05] MEDS: ENOXAPARIN 30 MG/0.3 ML SQ SCH (08:52)
[2022-02-05] MEDS: THIAMINE 200 MG/2 ML INJ IVP SCH (08:52)
--- NOTE | 2022-02-05 09:52 | P.PN ---
Subjective Date of Service: 02/05/22 Chief Complaint: DKA, Severe Sepsis, perirectal abscess This morning, she is alert and oriented x3, but irritable. She states that she does not feel well, but does not endorse any specific complaints. Her leukocytosis seems to be improving; however, her creatinine is uptrending. At her request, I updated her [id number], Dr. Luis Manuel Hernandez on her hospital course. Review of Systems 10-point ROS is otherwise unremarkable General: Weakness (general), Malaise Physical Examination - Vital Signs Temperature: 98.3 F Blood Pressure: 159/62 Pulse: 106 Respirations: 20 Pulse Ox (%): 97 - Studies Microbiology Data (last 24 hrs): 02/03/22 00:39 Catheterized Urine Newell Count - Final No growth. 02/03/22 00:39 Catheterized Urine - Final No growth. Assessment And Plan - Plan - Physical Exam General: Alert, In no apparent distress, Oriented x3 HEENT: Atraumatic, Mucous membr. moist/pink, EOMI, Sclerae nonicteric Neck: Supple Respiratory: Clear to auscultation bilaterally, Diminished Cardiovascular: No edema, Regular rate/rhythm, Normal S1 S2, No gallops, No rubs, No murmurs Capillary refill: <2 Seconds Gastrointestinal: Normal bowel sounds, Soft and benign, Non-distended, No tenderness, No rebound, No guarding Musculoskeletal: No clubbing Integumentary: Rash(es) (Surgical site is covered in clean, dry surgical dressing. Exam performed alongside HOUSING QUALITY STANDARD INSPECTOR, [place]) Neurological: Normal strength at 5/5 x4 extr, Normal tone, Sensation intact # Diabetic Ketoacidosis in Type II Diabetes Mellitus - Likely due to medication noncompliance and infection - Hgb A1c > 14.0 % - Continue IV fluids and insulin drip per DKA protocol - transition to SQ insulin today - pH, anion gap, and glucose levels improving - Plan to transfer to Med/Surg over next 24 hours # Severe Sepsis likely secondary to Perianal Abscess s/p Incision & Drainage (02/04/2022) She meets sepsis criteria based on HR > 90 bpm, RR > 20 breaths/min or CO2 < 32 mmHg, WBC > 12,000, and the suspected source is a perianal abscess. Severe sepsis is suspected due to concern for tissue hypoperfusion/organ dysfunction based on creatinine >2.0 mg/dL (without ESRD) and lactic acid > 2 mmol/L. - General Surgery consulted and spoke with Dr. Lang - recommendations appreciated - S/P Incision and Drainage (02/04/2022) - wound cultures positive for Gram- Positive Rods - await speciation and sensitivities - Sepsis order set was initiated - Lactate trend: 2.4 -> 2.0 - Blood cultures drawn before antibiotics were given - Broad spectrum antibiotics started: Vancomycin + Piperacillin-Tazobactam - In regards to fluids: - 30 mL/kg of IV fluids was given based on patient's actual body weight # KDIGO Stage I Acute Kidney Injury on Chronic Kidney Disease Stage III? # High Anion Gap Metabolic Acidosis - Nephrology consulted and spoke with Dr. Tran - recommendations appreciated - Creatinine = 2.60 (baseline creatinine ~1.3-1.4?) - Urinalysis = 2+ blood, 2+ protein, 2+ glucose, 4+ ketones - Obtain renal ultrasound - IV fluids as mentioned above - Monitor creatinine and urine output - Renally dose medications # Acute Toxic Metabolic Encephalopathy likely secondary to above # History of Cerebrovascular Accident - Evaluation thus far: - Labs (02/04) = Na+ 147, Ca2+ 8.4, CO2 16, Glucose 203, Ammonia 38, BUN 21, Vitamin B12 674, TSH 1.06 - ABG (02/04) = pH 7.28, PCO2 26.7, PO2 60.0 - Blood cultures x 2 drawn - Urinalysis = 2+ blood, 2+ protein, 2+ glucose, 4+ ketones - CT head = "CT head examination shows no acute intracranial process." - She denies alcohol use - Management plan: - Thiamine 500 mg IV x 1, followed by 100 mg IV daily - Treat above conditions as described above # Obstructive Sleep Apnea - Resume home CPAP when able Jose Chavez M.D.
[2022-02-05] MEDS: COLLAGENASE 30 GM OINTMENT TOP SCH (10:45)
--- NOTE | 2022-02-05 11:39 | P.PN ---
Nephrology note: (S) Pt remains in the ICU, metab acidosis/AG improved but remains on low rate Insulin drip and D5W IVF given hypernatremia, AMS, no PO intake currently. Otherwise hemodynamically stable, making urine (O) Vitals reviewed in the EMR General: In no apparent distress, lethargic HEENT: Atraumatic, Normocephalic, Other (NC present) Neck: Supple Respiratory: Non tachypnec, Normal air movement Cardiovascular: No edema, Normal S1 S2, Other (Mildly tachycardic) Gastrointestinal: Soft and benign, Non-distended, cohen present Musculoskeletal: No contractures, No erythema Integumentary: No rashes Neurological: Other (Lethargic but awakens briefly, does not follow commands, no tremors or myoclonus) Conclusions/Impression: A/P 1. Abnormal results of kidney function studies 2. Stage II MARTINEZ 3. Severe acidemia on presentation 2nd to AG metab acidosis with DKA, other - resolved 4. Hypokalemia, hypomagnesemia 5. Volume depletion, hypernatremia 6. Sepsis 2nd to unspecified organism 7. Hypophosphatemia 8. AMS 2nd to toxic metab encephalopathy 9. Leukocytosis -Cr level has been steadily rising with MARTINEZ 2nd to multifactorial etiology with hypotension, early sepsis, volume depletion, DKA, other but fortunately is non oliguric and will see if levels peak and start to plateau soon, nonetheless the continued rise suggests some intrinsic injury/mild ATN, other. Con to monitor closely, no indication for SOAP PRESS FEEDER at this time, family updated. -Acidemia improved, AG closed, bicarb deficit improved, did d/c bicarb content in IVF. -Pt has a water deficit, Na level 150 or so after correction for glucose, switched to D5W with IV KCL -Insulin drip continued at a low rate because pt still altered, no PO intake so basal Insulin not yet started but will defer to Dr. Chavez to manage -Abx per primary team, f/u cultures, monitor Vanc levels closely and dose meds for reduced CrCl. Vanc level checked today was < 20, agree with reduced interval dosing. -Cont to replete lytes, pt receiving 40 meq IV KCL and 10 mmol KPhos, and IV KCL 20 meq added to D5W. Mg Sulfate 2 gm IV ordered, phos improved to 2.0. Low electrolytes likely 2nd to intracellular shifting, total body depletion, other Bill Tran MD, JUANAN
--- NOTE | 2022-02-05 11:44 | RAD REPORT ---
EXAM DESCRIPTION: US - Renal Ultrasound-Complete - 02/05/2022 10:44 am CLINICAL HISTORY: MARTINEZ COMPARISON: Abdomen Pelvis Wo Contrast dated 02/03/2022 FINDINGS: Both kidneys are normal in size, shape and echotexture. The right kidney measures 12.3 cm. No hydronephrosis, focal mass or perinephric fluid. The left kidney measures 10.5 cm. No hydronephrosis, focal mass or perinephric fluid. The bladder is decompressed via Nogueira catheter. IMPRESSION: No evidence of hydronephrosis. Decompressed bladder around a Nogueira catheter.
[2022-02-05] MEDS: MORPHINE 2 MG/ML SYR IV PRN ×3 (12:00→23:07)
[2022-02-05 15:44] LABS: Potassium 3.2 mmol/L (3.5-5.1)
[2022-02-05] MEDS: PIPER TAZO 2.25 GM in NA CHLORIDE 0.9% 100 ML IV SCH (16:50)
[2022-02-05] MEDS ORDERED: KCL 20 MEQ/100 mL IVPB 20 MEQ/100 ML BAG IV SCH (17:00)
--- NOTE | 2022-02-05 18:09 | PN ---
Diagnosis: DKA, perianal abscess. Subjective: Patient doing better. Objective: Chest: Clear. Abdomen: Soft and depressible. Wound: Checked today. No purulent discharge seen. Cellulitis resolving. Plan: Continue wet-to-dry. Follow up with medical doctors. From the surgical standpoint, once she gets discharged, we will [facility]. ARSLAN/DAVID Voice ID: [id number] Report ID: [id number]
[2022-02-05] MEDS ORDERED: D5W 1,000 ML IV ONE (23:03)
[2022-02-06] MEDS: PIPER TAZO 2.25 GM in NA CHLORIDE 0.9% 100 ML IV SCH ×3 (01:25→16:33)
[2022-02-06] MEDS: MORPHINE 2 MG/ML SYR IV PRN ×4 (02:37→22:00)
[2022-02-06] MEDS: LORazepam 2 MG/ML VIAL IV PRN ×2 (04:15→20:48)
[2022-02-06 04:42] LABS: Absolute Lymphocytes (CBC) 1.3 K/uL (0.7-4.9); Hematocrit 32.7 % (36.0-45.0); Lymphocytes % 14.2 % (15.3-44.8); MCV 90.8 fL (80-100); MPV 7.8 fL (7.6-11.3)
[2022-02-06 04:55] LABS: Phosphorus 1.7 mg/dL (2.5-4.9)
[2022-02-06] MEDS ORDERED: LORazepam 2 MG/ML VIAL IV PRN (07:18)
[2022-02-06] MEDS ORDERED: POTASSIUM PHOS IN 0.9 % NACL 15 MMOL/250 ML BAG IV ONE (08:19)
[2022-02-06] MEDS: THIAMINE 200 MG/2 ML INJ IVP SCH (08:55)
[2022-02-06] MEDS: ENOXAPARIN 30 MG/0.3 ML SQ SCH (08:55)
[2022-02-06] MEDS ORDERED: KCL 20 MEQ/100 mL IVPB 20 MEQ/100 ML BAG IV SCH (09:00)
--- NOTE | 2022-02-06 09:26 | P.PN ---
Nephrology note: (S) Pt remains in the ICU, remains lethargic and confused/restless at times, in restraints as a result. Cont to require electrolyte replacement. (O) Vitals reviewed in the EMR General: In no apparent distress, lethargic HEENT: Atraumatic, Normocephalic, Other (NC present) Neck: Supple Respiratory: Non tachypnec, Normal air movement Cardiovascular: No edema, Normal S1 S2, Other (Mildly tachycardic) Gastrointestinal: Soft and benign, Non-distended, cohen present Musculoskeletal: No contractures, No erythema Integumentary: No rashes Neurological: Other (Lethargic but awakens briefly, verbalizes briefly, mildly restless, no tremors or myoclonus) Conclusions/Impression: A/P 1. Abnormal results of kidney function studies 2. Stage II MARTINEZ 3. Severe acidemia on presentation 2nd to AG metab acidosis with DKA, other - resolved 4. Hypokalemia, hypomagnesemia 5. Volume depletion, hypernatremia 6. Sepsis 2nd to unspecified organism 7. Hypophosphatemia 8. AMS 2nd to toxic metab encephalopathy 9. Leukocytosis -Cr level had initially been steadily rising with MARTINEZ 2nd to multifactorial etiology with hypotension, early sepsis, volume depletion, DKA, other but fortunately has been non oliguric and levels have now peaked and are appearing to plateau, although pt did likely suffer some intrinsic injury/mild ATN, other. Pt may also have some underlying CKD NOS, baseline Cr level of 1.4 mg/dl mentioned by family. Con to monitor closely, no indication for ORE DRYER at this time. -Acidemia improved, AG closed, bicarb deficit improved, did d/c bicarb content in IVF. -Pt has a water deficit, Na level 148-150 or so after correction for glucose, switched to D5W with IV KCL yesterday, rate increased, will calculate urinary free water losses if persist -Insulin drip continued at a low rate because pt still altered, no PO intake so basal Insulin not yet started but will defer to Dr. Chavez to manage -Abx per primary team, f/u cultures, monitor Vanc levels closely and dose meds for reduced CrCl. Vanc level checked yesterday was < 20, agree with reduced interval dosing. -Cont to replete lytes, pt receiving 20 meq IV KCL and 15 mmol KPhos this AM, and IV KCL 20 meq added to D5W. Low electrolytes likely 2nd to intracellular shifting, total body depletion, other Bill MD [place], JUANAN
--- NOTE | 2022-02-06 10:39 | P.PN ---
Subjective Date of Service: 02/06/22 Chief Complaint: DKA, Severe Sepsis, perirectal abscess This morning, she is alert and oriented x1. She required lorazepam overnight due to agitation. Will try to wean off of lorazepam. Appreciate Neurology recommendations. Review of Systems is unable to be obtained Physical Examination - Vital Signs Temperature: 97.7 F Blood Pressure: 156/68 Pulse: 99 Respirations: 23 Pulse Ox (%): 95 - Studies Microbiology Data (last 24 hrs): 02/03/22 00:39 Catheterized Urine [place] Count - Final No growth. 02/03/22 00:39 Catheterized Urine - Final No growth. Assessment And Plan - Plan - Physical Exam General: Alert, In no apparent distress, Oriented x1 HEENT: Atraumatic, Mucous membr. moist/pink, EOMI, Sclerae nonicteric Neck: Supple Respiratory: Clear to auscultation bilaterally, Diminished Cardiovascular: No edema, Regular rate/rhythm, Normal S1 S2, No gallops, No rubs, No murmurs Capillary refill: <2 Seconds Gastrointestinal: Normal bowel sounds, Soft and benign, Non-distended, No tenderness, No rebound, No guarding Musculoskeletal: No clubbing Integumentary: Rash(es) (Surgical site is covered in clean, dry surgical dressing. Exam performed alongside [employer] W[employer]CH[employer]IC, [place]) Neurological: Moving all four extremities equally # Diabetic Ketoacidosis in Type II Diabetes Mellitus - Likely due to medication noncompliance and infection - Hgb A1c > 14.0 % - Continue IV fluids and insulin drip while NPO - Consulted nutrition given AMS - pH, anion gap, and glucose levels improving - Plan to transfer to Med/Surg over next 24 hours # Severe Sepsis likely secondary to Perianal Abscess s/p Incision & Drainage (02/04/2022) She meets sepsis criteria based on HR > 90 bpm, RR > 20 breaths/min or CO2 < 32 mmHg, WBC > 12,000, and the suspected source is a perianal abscess. Severe sepsis is suspected due to concern for tissue hypoperfusion/organ dysfunction based on creatinine >2.0 mg/dL (without ESRD) and lactic acid > 2 mmol/L. - General Surgery consulted and spoke with Dr. Lang - recommendations appreciated - S/P Incision and Drainage (02/04/2022) - wound cultures positive for Gram- Positive Rods - await speciation and sensitivities - Sepsis order set was initiated - Lactate trend: 2.4 -> 2.0 - Blood cultures drawn before antibiotics were given - Broad spectrum antibiotics started: Vancomycin + Piperacillin-Tazobactam - In regards to fluids: - 30 mL/kg of IV fluids was given based on patient's actual body weight # KDIGO Stage I Acute Kidney Injury on Chronic Kidney Disease Stage III? # High Anion Gap Metabolic Acidosis - Nephrology consulted and spoke with Dr. Tran - recommendations appreciated - Creatinine = up to 2.60 (baseline creatinine ~1.3-1.4?) - Urinalysis = 2+ blood, 2+ protein, 2+ glucose, 4+ ketones - Renal ultrasound = "no evidence of hydronephrosis. Decompressed bladder around a Nogueira catheter." - IV fluids as mentioned above - Monitor creatinine and urine output - Renally dose medications # Acute Toxic Metabolic Encephalopathy likely secondary to above # History of Cerebrovascular Accident - Evaluation thus far: - Labs (02/04) = Na+ 147, Ca2+ 8.4, CO2 16, Glucose 203, Ammonia 38, BUN 21, Vitamin B12 674, TSH 1.06 - ABG (02/04) = pH 7.28, PCO2 26.7, PO2 60.0 - Blood cultures x 2 drawn - Urinalysis = 2+ blood, 2+ protein, 2+ glucose, 4+ ketones - CT head = "CT head examination shows no acute intracranial process." - She denies alcohol use - Management plan: - Neurology consulted - recommendations appreciated - Unable to obtain MRI due to agitation - Unable to reliably obtain EEG due to lorazepam - Thiamine 500 mg IV x 1, followed by 100 mg IV daily - Treat above conditions as described above # Obstructive Sleep Apnea - Resume home CPAP when able Jose Chavez M.D.
[2022-02-06] MEDS ORDERED: LORazepam 2 MG/ML VIAL IV ONE (12:23)
[2022-02-06] MEDS ORDERED: VITAL HP 1,000 ML BOT RTH SCH (13:00)
[2022-02-06] MEDS ORDERED: HALOPERIDOL LACT 5 MG/ML INJ IV PRN (14:47)
[2022-02-06] MEDS: D5W 1,000 ML with POTASSIUM CL 20 MEQ IV SCH ×2 (14:56)
[2022-02-06] MEDS: INSULIN -REGULAR HUMAN 100 UNIT in NA CHLORIDE 0.9% 100 ML IV SCH (15:24)
[2022-02-06] MEDS: COLLAGENASE 30 GM OINTMENT TOP SCH (16:26)
[2022-02-06] MEDS ORDERED: VANCOMYCIN 1.75 GM in NA CHLORIDE 0.9% 500 ML IVPB SCH (18:00)
[2022-02-06] MEDS: KCL 20 MEQ/100 mL IVPB 20 MEQ/100 ML BAG IV SCH ×2 (20:45→23:11)
--- NOTE | 2022-02-06 22:20 | CON ---
Reason For Consultation: Consultation called because the patient was not quite waking up quickly aft er she was admitted with severe diabetic ketoacidosis and a perirectal abscess along with severe seps is. History Of Present Illness: She is a 51-year-old right-handed patient as noted with diabet es mellitus, very poorly controlled; diabetic neuropathy; tobacco abuse, and prior stroke affecting t he brainstem who has uncontrolled diabetes and she was admitted with diabetic ketoacidosis with pH do wn to 6.8 and blood sugars over 400. The patient has also been followed by the Surgical Service for a perirectal abscess. About 3 days ago, her blood sugars and diabetic ketoacidosis have been address ed with insulin drip and managed also for the infection and surgically managed. However, she has had significant agitation at times and would pull on both upper and lower extremities and is not back to her baseline. Head CT scan done on 02/04/2022, that is 2 days ago, showed no evidence of any acute ischemic or hemorrhagic findings and EEG is pending. She has received Ativan for her agitation and [place], which 2 sisters are at bedside, said she this morning did acknowledge them, but did not have a ny verbal communication. She would open and close the eyes at times. It should be noted that on the CT scan, there is an old lacunar infarct, which was noted in the posterior limb of the internal caps ule at the junction of the thalamus and it was not significantly different from a brain CT scan done on January 13, 2017. Past Medical History: As noted. Past Surgical History: Tonsillectomy, cholecystectomy, and 5th toe amputation due to osteomyelitis. Family History: Gastrointestinal disease in father. Allergies: LATEX. Social History: Smokes tobacco every day, very poor compliance with medications. Drinks alcohol and caffeinated beverages. Medications: At home are metformin 1000 mg twice daily, Plavix 75 mg daily, vitamin D3 5000 units da adarsh, Jardiance 25 mg daily, gabapentin 300 mg twice daily, lispro insulin 5 units 3 times daily subcu taneously, potassium 50 mEq daily, Lantus insulin 35 units subcutaneously daily with breakfast, and e zetimibe 10 mg daily. Review of Systems: Not possible at this point, the patient is not verbally responsive. Physical Examination: Vital Signs: Blood pressure 105/48, pulse 93, respiratory rate up to 28, temperature 97.7, oxygen sa turation 95%. Neuro: Ms. Eastman just received some Ativan at the time of my evaluation. She did open the eyes to s timulation of the face and hands. She did move both legs, bending at the knees slightly and did move both arms, but just slightly. The arms were restrained. She did not follow any commands, open eyes , or move upper or lower extremities again to command. Tone was normal in upper and lower extremitie s. Laboratory Studies: Three days ago white blood cell count was 22.6 with 81% neutrophils. Today afte r antibiotics, white blood cell count is 9.2 and 72.5% neutrophils. Her arterial blood gas as of yes , pH 7.34 and on the , pH was 6.86. Creatinine 2.42, blood sugars range up to 243, potassiu m low at 3.1, sodium elevated to 148, calcium low at 8.2, phosphorus 1.7, magnesium 2.0. Vancomycin trough 20.4. Note on the 03 of February, acetone level was elevated and noted as large. On the , that is 2 days ago, it is now small. COVID testing is negative. Chest x-ray shows left upper extr emity PICC line in place. Catheter tip is over the right atrium with advice to retract the PICC line 3-4 cm for optimal placement. Assessment: Ms. Eastman is a 51-year-old patient with significant metabolic and toxic encephalopathy. She was admitted with severe diabetic ketoacidosis, severe sepsis and was still altered and likely w ill be so for perhaps another 3 or 5 days or a week[address] CT scan shows old brainstem stroke. No acute f indings there. She has an EEG pending. She has comorbidities as noted above. Plan: 1.Follow up EEG. 2.Continue with aggressive management of diabetic ketoacidosis and sepsis and with fluid management as she also has renal insufficiency. She will be followed once EEG is done. LB/MODL Voice ID: [id number] Report ID: [id number]
[2022-02-07] MEDS ORDERED: HALOPERIDOL LACT 5 MG/ML INJ IV ONE (01:50)
[2022-02-07] MEDS: PIPER TAZO 2.25 GM in NA CHLORIDE 0.9% 100 ML IV SCH ×3 (02:06→17:08)
[2022-02-07] MEDS ORDERED: VANCOMYCIN 1.75 GM in NA CHLORIDE 0.9% 500 ML IVPB SCH (05:00)
[2022-02-07] MEDS: LORazepam 2 MG/ML VIAL IV PRN ×4 (05:27→23:03)
[2022-02-07 05:29] LABS: Absolute Lymphocytes (CBC) 1.5 K/uL (0.7-4.9); Hematocrit 30.6 % (36.0-45.0); Lymphocytes % 16.1 % (15.3-44.8); MCV 91.1 fL (80-100); MPV 7.8 fL (7.6-11.3); RBC Red Blood Cell Count 3.36 M/uL (3.86-4.86)
[2022-02-07 05:46] LABS: Potassium 3.1 mmol/L (3.5-5.1)
[2022-02-07] MEDS: MORPHINE 2 MG/ML SYR IV PRN ×5 (06:11→23:50)
[2022-02-07] MEDS ORDERED: D5W 1,000 ML IV ONE (06:23)
[2022-02-07] MEDS: D5W 1,000 ML with POTASSIUM CL 20 MEQ IV SCH ×6 (06:24→16:35)
[2022-02-07] MEDS: VANCOMYCIN 1.75 GM in NA CHLORIDE 0.9% 500 ML IVPB SCH (06:25)
[2022-02-07] MEDS: COLLAGENASE 30 GM OINTMENT TOP SCH (09:00)
[2022-02-07] MEDS: ENOXAPARIN 30 MG/0.3 ML SQ SCH (10:20)
[2022-02-07] MEDS: THIAMINE 200 MG/2 ML INJ IVP SCH (10:21)
--- NOTE | 2022-02-07 10:42 | RAD REPORT ---
EXAM DESCRIPTION: RAD - Abdomen 1 View (KUB) - 02/07/2022 9:30 am CLINICAL HISTORY: NGT Pain COMPARISON: No comparisons FINDINGS: Enteric tube tip is in the stomach.
[2022-02-07] MEDS ORDERED: POTASSIUM 25 MEQ EFFERV TAB PO ONE (10:45)
--- NOTE | 2022-02-07 10:53 | P.PN ---
Nephrology note: (S) Pt remains in the ICU, remains altered, EEG performed, NGT and rectal tubes placed by nursing staff. Has not been started on enteral feeds yet, remains on D5W IVF + KCL (O) Vitals reviewed in the EMR General: In no apparent distress, lethargic HEENT: Atraumatic, Normocephalic, Other (NC present), NGT present Neck: Supple Respiratory: Non tachypnec, Normal air movement Cardiovascular: No edema, Normal S1 S2, Other (Mildly tachycardic) Gastrointestinal: Soft and benign, Non-distended, cohen present, rectal tube present Musculoskeletal: No contractures, No erythema. Restraints in place Integumentary: No rashes Neurological: Other (Lethargic but awakens briefly, mildly restless, no tremors or myoclonus) Conclusions/Impression: A/P 1. Abnormal results of kidney function studies 2. Stage II MARTINEZ 3. Severe acidemia on presentation 2nd to AG metab acidosis with DKA, other - resolved 4. Hypokalemia, hypomagnesemia 5. Volume depletion, hypernatremia 6. Sepsis 2nd to unspecified organism 7. Hypophosphatemia 8. AMS 2nd to toxic metab encephalopathy +/- other 9. Leukocytosis -Cr level had initially been steadily rising with MARTINEZ 2nd to multifactorial etiology with hypotension, early sepsis, volume depletion, DKA, other but fortunately has been non oliguric and levels have now peaked and have plateaued mostly, although pt did likely suffer some intrinsic injury/mild ATN, other. Pt may also have some underlying CKD NOS, baseline Cr level of 1.4 mg/dl mentioned by family. Con to monitor closely, no indication for CHARGING OPERATOR at this time. -Acidemia improved, AG closed, bicarb deficit improved, did d/c bicarb content in IVF. -Pt has a persistent water deficit and urinary free water losses may be contributing, Na level 150 this AM, will add free water boluses to the D5W IVF since she now has a NGT -Since pt will be started on enteral feeds, would look to transition from Insulin drip to basal Insulin -Abx per primary team, f/u cultures, monitor Vanc levels closely and dose meds for reduced CrCl. Vanc levels checked have been at 20 or close to it, pharmacy monitoring -Cont to replete lytes, pt receiving additional KCL this AM in the form of 40 meq liquid via NGT. Low electrolytes likely 2nd to intracellular shifting, total body depletion. Will assess renal K wasting in the setting of tubular injury/A KI, will check random UK and TTKG if needed. Bill Tran MD, JUANAN
[2022-02-07] MEDS ORDERED: GLUCAGON 1 MG/VIAL IM PRN (13:33)
[2022-02-07] MEDS ORDERED: D50W 25 GM/50 ML SYRINGE IV PRN (13:33)
[2022-02-07] MEDS ORDERED: DEXTROSE 10%-WATER 125 ML IV PRN (13:36)
[2022-02-07] MEDS ORDERED: INSULIN GLARGINE 100 UNIT/ML SQ ONE (14:00)
--- NOTE | 2022-02-07 14:42 | CON ---
History Of Present Illness: This is a 51-year-old female. I was consulted for evaluation of perirec hunter abscess, status post debridement by surgical team. Patient is not able to give history as patien t is in discomfort and somewhat slightly disoriented. Able to respond to simple commands. Has signi ficant past medical history of insulin-dependent diabetes mellitus, stroke with coming into the [facility] with altered mental status and abscess formation to the perirectal area. Patient is currently on Zosyn and vancomycin which was started yesterday. Patient denies any chest pain or abdominal pain. Patient went under surgical debridement on February 04. Past Medical History: As per HPI. Social History: Nonsmoker. Nondrinker. Family History: Noncontributory. Medications: Vancomycin, Zosyn. See MAR for other medications. Allergies: LATEX. Review of Systems: A 10-point review was performed. Physical Examination: General: This is a 51-year-old female, lying in bed, in mild distress because of catheters and perir ectal abscess. HEENT: Unremarkable. Neck: Supple. NG tube in place. Lungs: Basal crackles. Heart: S1, S2. Regular. Abdomen: Soft. Bowel sounds are present. Extremities: No edema. Skin: Perirectal wound noted. Laboratory Data: Shows WBC 9, hemoglobin 10.6, platelets are 211. Chemistry shows sodium 150, potas sium 3.1, chloride 120, bicarb 25, BUN 22, creatinine 2.44, glucose is 157. Assessment And Plan: 51-year-old female with significant history of diabetes mellitus and diabetic k etoacidosis, coming in with the perirectal abscess formation, status post surgical debridement. Kidn ey function is slightly deteriorating. Currently, on vancomycin and Zosyn. We will recommend to swi tch to meropenem if kidney function continues to deteriorate. Repeat cultures if patient spikes any fever or leukocytosis. Also recommend to apply Silvadene to the wound bed for more aggressive local wound treatment and pack the wound with the wet-to-dry. We will continue to monitor. Thank you, Dr. Chavez and Dr. Lang, for consult. NF/MODL Voice ID: [id number] Report ID: [id number]
[2022-02-07] MEDS ORDERED: D5W 1,000 ML with POTASSIUM CL 20 MEQ IV SCH ×2 (16:00)
--- NOTE | 2022-02-07 16:48 | P.PN ---
Subjective Date of Service: 02/07/22 Chief Complaint: DKA, Severe Sepsis, perirectal abscess This morning, she is minimally arousable. She required lorazepam and haloperidol due to agitation. Will try to wean off as tolerated. Nutrition consulted, plan to place NG tube and start tube feeds today. Review of Systems is unable to be obtained Physical Examination - Vital Signs Temperature: 96.9 F Blood Pressure: 126/68 Pulse: 89 Respirations: 17 Pulse Ox (%): 93 Assessment And Plan - Plan - Physical Exam General: Alert, In no apparent distress, Oriented x1 HEENT: Atraumatic, Mucous membr. moist/pink, EOMI, Sclerae nonicteric Neck: Supple Respiratory: Clear to auscultation bilaterally, Diminished Cardiovascular: No edema, Regular rate/rhythm, Normal S1 S2, No gallops, No rubs, No murmurs Capillary refill: <2 Seconds Gastrointestinal: Normal bowel sounds, Soft and benign, Non-distended, No tenderness, No rebound, No guarding Musculoskeletal: No clubbing Integumentary: Rash(es) (Surgical site is covered in clean, dry surgical dressing. Slight erythema around surgical site. Exam performed alongside [employer], [place]) Neurological: Moving all four extremities equally # Diabetic Ketoacidosis in Type II Diabetes Mellitus - Likely due to medication noncompliance and infection - Hgb A1c > 14.0 % - Continue IV fluids and insulin drip while NPO - Consulted nutrition given AMS - Will try to place NG tube, start tube feeds, and transition to SQ insulin - pH, anion gap, and glucose levels improving - Plan to transfer to Med/Surg over next 24 hours # Severe Sepsis likely secondary to Perianal Abscess s/p Incision & Drainage (02/04/2022) She meets sepsis criteria based on HR > 90 bpm, RR > 20 breaths/min or CO2 < 32 mmHg, WBC > 12,000, and the suspected source is a perianal abscess. Severe sepsis is suspected due to concern for tissue hypoperfusion/organ dysfunction based on creatinine >2.0 mg/dL (without ESRD) and lactic acid > 2 mmol/L. - General Surgery consulted and spoke with Dr. Lang - recommendations appreciated - S/P Incision and Drainage (02/04/2022) - wound cultures positive for Gram- Positive Rods - await speciation and sensitivities - Consulted Infectious Diseases and spoke with Dr. Arrieta - recommendations appreciated - Sepsis order set was initiated - Lactate trend: 2.4 -> 2.0 - Blood cultures drawn before antibiotics were given - Broad spectrum antibiotics started: Vancomycin + Piperacillin-Tazobactam - In regards to fluids: - 30 mL/kg of IV fluids was given based on patient's actual body weight - Wound care consulted - recommendations appreciated # KDIGO Stage I Acute Kidney Injury on Chronic Kidney Disease Stage III? # High Anion Gap Metabolic Acidosis - Nephrology consulted and spoke with Dr. Tran - recommendations appreciated - Creatinine = up to 2.60 (baseline creatinine ~1.3-1.4?) - Urinalysis = 2+ blood, 2+ protein, 2+ glucose, 4+ ketones - Renal ultrasound = "no evidence of hydronephrosis. Decompressed bladder around a Nogueira catheter." - IV fluids as mentioned above - Monitor creatinine and urine output - Renally dose medications # Acute Toxic Metabolic Encephalopathy likely secondary to above # History of Cerebrovascular Accident - Evaluation thus far: - Labs (02/04) = Na+ 147, Ca2+ 8.4, CO2 16, Glucose 203, Ammonia 38, BUN 21, Vitamin B12 674, TSH 1.06 - ABG (02/04) = pH 7.28, PCO2 26.7, PO2 60.0 - Blood cultures x 2 drawn - Urinalysis = 2+ blood, 2+ protein, 2+ glucose, 4+ ketones - CT head = "CT head examination shows no acute intracranial process." - She denies alcohol use - Management plan: - Neurology consulted and spoke with Dr. Lopez - recommendations appreciated - Recommended EEG despite lorazepam - Unable to obtain MRI due to agitation - Thiamine 100 mg IV daily - Treat above conditions as described above # Obstructive Sleep Apnea - Resume home CPAP when able Jose Chavez M.D. Physician Review: Patient Assessed, Agree with Above Assessment and Plan
[2022-02-07] MEDS ORDERED: NA CHLORIDE 0.9% 0 ML IV ONE (17:09)
[2022-02-07 17:30] LABS: Magnesium 1.9 mg/dL (1.8-2.4)
[2022-02-07] MEDS: INSULIN -REGULAR HUMAN 50 UNIT/0.5 ML ML SQ SCH (18:11)
--- NOTE | 2022-02-07 19:36 | PN ---
Date of Progress Note: 02/07/2022 Diagnoses: Buttocks and perianal abscess. Subjective: From the surgical standpoint, patient is doing okay with the wound care itself. Patient is still in the critical care by the medical service. Objective: Abdomen: Soft and depressible. Wounds: Buttocks and perianal area wound is intact. We have an issue with bowel movement that is go ing to the wound and have to change multiple times. We are looking for alternative as a wound VAC to see if that somehow can be fit, although due to location, it is a challenge to put that in. The wou nd looks good except the perianal area. The wound area is still cellulitic. I am not sure exactly i f the antibiotics really are controlling this 100%. There is no abscess or necrotic wound at present , although if it does not get under control, it may lead into. Laboratory Data: WBC count of 9 from 21. Plan: I believe Infectious Disease should be consulted. They may share some more advise on the prop er antibiotics treatment. Continue wound care. We will see the patient as needed. ARSLAN/DAVID Voice ID: [id number] Report ID: [id number]
[2022-02-08] MEDS: PIPER TAZO 2.25 GM in NA CHLORIDE 0.9% 100 ML IV SCH ×3 (00:02→17:21)
[2022-02-08 00:06] LABS: Potassium 3.6 mmol/L (3.5-5.1)
[2022-02-08] MEDS: INSULIN -REGULAR HUMAN 50 UNIT/0.5 ML ML SQ SCH ×5 (00:35→17:20)
[2022-02-08] MEDS ORDERED: LORazepam 2 MG/ML VIAL IV ONE (01:25)
[2022-02-08] MEDS: D5W 1,000 ML with POTASSIUM CL 20 MEQ IV SCH ×2 (02:09)
[2022-02-08] MEDS: MORPHINE 2 MG/ML SYR IV PRN ×4 (03:41→20:45)
[2022-02-08 05:24] LABS: Absolute Lymphocytes (CBC) 1.3 K/uL (0.7-4.9); Hematocrit 33.5 % (36.0-45.0); Lymphocytes % 11.9 % (15.3-44.8); MPV 7.9 fL (7.6-11.3); RBC Red Blood Cell Count 3.61 M/uL (3.86-4.86)
[2022-02-08 05:50] LABS: Phosphorus 2.1 mg/dL (2.5-4.9); Potassium 3.6 mmol/L (3.5-5.1)
[2022-02-08] MEDS: LORazepam 2 MG/ML VIAL IV PRN ×3 (06:27→23:45)
[2022-02-08 06:43] LABS: Blood Morphology Comment NOT SEEN (NOT SEEN); Platelet Estimate ADEQ; Toxic Granulation PRESENT
[2022-02-08] MEDS ORDERED: GLUCAGON 1 MG/VIAL IM PRN (06:51)
[2022-02-08] MEDS ORDERED: D50W 25 GM/50 ML SYRINGE IV PRN (06:51)
[2022-02-08] MEDS: ENOXAPARIN 30 MG/0.3 ML SQ SCH (07:56)
[2022-02-08] MEDS: THIAMINE 200 MG/2 ML INJ IVP SCH (07:56)
[2022-02-08] MEDS: INSULIN GLARGINE 100 UNIT/ML SQ SCH (11:16)
--- NOTE | 2022-02-08 11:19 | P.PN ---
Nephrology note: (S) Pt remains in the ICU, on TF, tolerating, off Insulin gtt. Remains restless in restraints, but able to answer qu briefly this AM and verbalize more than what I have seen in past days (O) Vitals reviewed in the EMR General: In no apparent distress, lethargic HEENT: Atraumatic, Normocephalic, Other (NC present), NGT present Neck: Supple Respiratory: Non tachypnec, Normal air movement Cardiovascular: No edema, Normal S1 S2, Other (Mildly tachycardic) Gastrointestinal: Soft and benign, Non-distended, cohen present, rectal tube present Musculoskeletal: No contractures, No erythema. Restraints in place Integumentary: No rashes Neurological: Other (Less lethargic, more awake, mildly restless, no tremors or myoclonus) Conclusions/Impression: A/P 1. Abnormal results of kidney function studies 2. Stage II MARTINEZ 3. Severe acidemia on presentation 2nd to AG metab acidosis with DKA, other - resolved 4. Hypokalemia, hypomagnesemia improved 5. Volume depletion, hypernatremia -resolved 6. Sepsis 2nd to unspecified organism 7. Hypophosphatemia 8. AMS 2nd to toxic metab encephalopathy +/- other 9. Leukocytosis -Cr level had initially been steadily rising with MARTINEZ 2nd to multifactorial etiology with hypotension, early sepsis, volume depletion, DKA, other but fortunately has been non oliguric and levels have now peaked and have plateaued mostly, although pt did likely suffer some intrinsic injury/mild ATN, other. Pt may also have some underlying CKD NOS, baseline Cr level of 1.4 mg/dl mentioned by family. Con to monitor closely, no indication for ABRASIVE GRADER at this time. -Acidemia improved, AG closed, bicarb deficit improved, did d/c bicarb content in IVF early on/ -Pt had a persistent water deficit and urinary free water losses may have been contributing, but Na level now < 145, did d/c D5W and will cont free water boluses -Pt transitioned off Insulin drip -Abx per primary team, monitor Vanc levels closely and dose meds for reduced CrCl. Vanc levels checked have been < 20 or close to it, pharmacy monitoring -K level > 3.5 this AM. Bill Tran MD, ASHLEY
[2022-02-08] MEDS ORDERED: INSULIN GLARGINE 100 UNIT/ML SQ SCH ×2 (12:00)
--- NOTE | 2022-02-08 13:31 | P.PN ---
Subjective Date of Service: 02/08/22 Chief Complaint: DKA, Severe Sepsis, perirectal abscess No acute events overnight. There have been minimal changes in mental status over the last day or so. An NG tube was placed and she has been started on tube feeds. Appreciate Neurology recommendations regarding mental status. Review of Systems is unable to be obtained Physical Examination - Vital Signs Temperature: 97.7 F Blood Pressure: 156/89 Pulse: 90 Respirations: 16 Pulse Ox (%): 98 - Studies Microbiology Data (last 24 hrs): 02/03/22 00:10 Blood - Blood Aerobic Blood Culture - Final No growth in 5 days. 02/03/22 00:10 Blood - Blood Anaerobic Blood Culture - Final 02/02/22 23:35 Blood - Blood Aerobic Blood Culture - Final No growth in 5 days. 02/02/22 23:35 Blood - Blood Anaerobic Blood Culture - Final No growth in 5 days. Assessment And Plan - Plan - Physical Exam General: Alert, In no apparent distress, Oriented x1 HEENT: Atraumatic, Mucous membr. moist/pink, EOMI, Sclerae nonicteric Neck: Supple Respiratory: Clear to auscultation bilaterally, Diminished Cardiovascular: No edema, Regular rate/rhythm, Normal S1 S2, No gallops, No rubs, No murmurs Capillary refill: <2 Seconds Gastrointestinal: Normal bowel sounds, Soft and benign, Non-distended, No tenderness, No rebound, No guarding Musculoskeletal: No clubbing Integumentary: Rash(es) (Surgical site is covered in clean, dry surgical dressing. Slight erythema around surgical site. Exam performed alongside TALENT ACQUISITION PROJECT MANAGERHelena) Neurological: Moving all four extremities equally # Diabetic Ketoacidosis in Type II Diabetes Mellitus - Likely due to medication noncompliance and infection - Hgb A1c > 14.0 % - Continue IV fluids and insulin drip while NPO - NG tube placed yesterday and started on tube feeds - Monitor for refeeding syndrome - Hyperglycemic this morning, increased basal insulin from 25 units to 35 units and increased correction insulin from mild to moderate scale - pH, anion gap, and glucose levels improving - Plan to transfer to Med/Surg over next 24 hours # Severe Sepsis likely secondary to Perianal Abscess s/p Incision & Drainage (02/04/2022) She meets sepsis criteria based on HR > 90 bpm, RR > 20 breaths/min or CO2 < 32 mmHg, WBC > 12,000, and the suspected source is a perianal abscess. Severe sepsis is suspected due to concern for tissue hypoperfusion/organ dysfunction based on creatinine >2.0 mg/dL (without ESRD) and lactic acid > 2 mmol/L. - General Surgery consulted and spoke with Dr. Lang - recommendations appreciated - S/P Incision and Drainage (02/04/2022) - wound cultures positive for Gram- Positive Rods - await speciation and sensitivities - Consulted Infectious Diseases and spoke with Dr. Arrieta - recommendations appreciated - Sepsis order set was initiated - Lactate trend: 2.4 -> 2.0 - Blood cultures drawn before antibiotics were given - Broad spectrum antibiotics started: Vancomycin + Piperacillin-Tazobactam - In regards to fluids: - 30 mL/kg of IV fluids was given based on patient's actual body weight - Wound care consulted - recommendations appreciated # KDIGO Stage I Acute Kidney Injury on Chronic Kidney Disease Stage III? # High Anion Gap Metabolic Acidosis - Nephrology consulted and spoke with Dr. Tran - recommendations appreciated - Creatinine = up to 2.60 (baseline creatinine ~1.3-1.4?) - Urinalysis = 2+ blood, 2+ protein, 2+ glucose, 4+ ketones - Renal ultrasound = "no evidence of hydronephrosis. Decompressed bladder around a Nogueira catheter." - IV fluids as mentioned above - Monitor creatinine and urine output - Renally dose medications # Acute Toxic Metabolic Encephalopathy likely secondary to above # History of Cerebrovascular Accident - Evaluation thus far: - Labs (02/04) = Na+ 147, Ca2+ 8.4, CO2 16, Glucose 203, Ammonia 38, BUN 21, Vitamin B12 674, TSH 1.06 - ABG (02/04) = pH 7.28, PCO2 26.7, PO2 60.0 - Blood cultures x 2 drawn - Urinalysis = 2+ blood, 2+ protein, 2+ glucose, 4+ ketones - CT head = "CT head examination shows no acute intracranial process." - She denies alcohol use - Management plan: - Neurology consulted and spoke with Dr. Lopez - recommendations appreciated - Recommended EEG despite lorazepam - Unable to obtain MRI due to agitation - Thiamine 100 mg IV daily - Treat above conditions as described above # Obstructive Sleep Apnea - Resume home CPAP when able Jose Chavez M.D.
[2022-02-08] MEDS: COLLAGENASE 30 GM OINTMENT TOP SCH (14:30)
[2022-02-08] MEDS ORDERED: HALOPERIDOL LACT 5 MG/ML INJ IV ONE (22:19)
--- NOTE | 2022-02-08 22:49 | RAD REPORT ---
EXAM DESCRIPTION: RAD - Abdomen 1 View (KUB) - 02/08/2022 10:40 pm CLINICAL HISTORY: S/P dobhoff insertion COMPARISON: <Comparisons> FINDINGS: Nonobstructive bowel gas pattern. No acute osseous abnormality.Visualized lungs are unrema rkable.No abnormal calcifications. Weighted feeding tube tip overlies the lower stomach. IMPRESSION: Nonobstructive bowel gas pattern. Weighted feeding tube tip overlies the lower stomach.
[2022-02-09] MEDS: PIPER TAZO 2.25 GM in NA CHLORIDE 0.9% 100 ML IV SCH ×3 (00:01→16:28)
[2022-02-09] MEDS: MORPHINE 2 MG/ML SYR IV PRN ×4 (00:10→20:43)
[2022-02-09 05:34] LABS: Absolute Lymphocytes (CBC) 1.3 K/uL (0.7-4.9); Hematocrit 31.6 % (36.0-45.0); MCV 92.2 fL (80-100); MPV 7.6 fL (7.6-11.3); RBC Red Blood Cell Count 3.43 M/uL (3.86-4.86)
[2022-02-09 06:06] LABS: Albumin 1.6 g/dL (3.4-5.0); Bilirubin Total 0.3 mg/dL (0.2-1.0); Protein, Total 5.1 g/dL (6.4-8.2)
[2022-02-09 06:11] LABS: Potassium 2.9 mmol/L (3.5-5.1)
[2022-02-09] MEDS: VANCOMYCIN 1.75 GM in NA CHLORIDE 0.9% 500 ML IVPB SCH (06:30)
[2022-02-09] MEDS: INSULIN -REGULAR HUMAN 50 UNIT/0.5 ML ML SQ SCH ×4 (06:48→16:28)
[2022-02-09] MEDS ORDERED: KCL 20 MEQ/100 mL IVPB 20 MEQ/100 ML BAG IV SCH (07:00)
[2022-02-09] MEDS ORDERED: POTASSIUM 25 MEQ EFFERV TAB PO ONE (07:00)
[2022-02-09] MEDS: ENOXAPARIN 30 MG/0.3 ML SQ SCH (07:59)
[2022-02-09] MEDS: THIAMINE 200 MG/2 ML INJ IVP SCH (07:59)
--- NOTE | 2022-02-09 12:01 | P.PN ---
Nephrology note: (S) Pt remains in the ICU, pt has pulled out her dobhoff tube, remains in restraints, not agitated when I see her on rounds and family at bedside report she was more interactive this AM. Has been cleared for PO intake per reports (O) Vitals reviewed in the EMR General: In no apparent distress, lethargic HEENT: Atraumatic, Normocephalic, Other (NC present), NGT present Neck: Supple Respiratory: Non tachypnec, Normal air movement Cardiovascular: No edema, Normal S1 S2, Other (Mildly tachycardic) Gastrointestinal: Soft and benign, Non-distended, cohen present, rectal tube present Musculoskeletal: No contractures, No erythema. Restraints in place Integumentary: No rashes Neurological: Other (Has more of a blank stare this AM for me and not able to answer questions, no tremors or myoclonus) Conclusions/Impression: A/P 1. Abnormal results of kidney function studies 2. Stage II MARTINEZ 3. Severe acidemia on presentation 2nd to AG metab acidosis with DKA, other - resolved 4. Hypokalemia, hypomagnesemia recurrent 5. Volume depletion, hypernatremia -resolved 6. Sepsis 2nd to unspecified organism 7. Hypophosphatemia 8. AMS 2nd to toxic metab encephalopathy +/- other 9. Leukocytosis -Cr level had initially been steadily rising with MARTINEZ 2nd to multifactorial etiology with hypotension, early sepsis, volume depletion, DKA, other but fortunately has been non oliguric and levels have now peaked and have plateaued mostly, although pt did likely suffer some intrinsic injury/mild ATN, other which may explain why levels have failed to downward trend. Pt may also have some underlying CKD NOS, baseline Cr level of 1.4 mg/dl mentioned by family. Con to monitor closely -Acidemia improved, AG closed, bicarb deficit improved, did d/c bicarb content in IVF early on. -Pt had a persistent water deficit and urinary free water losses may have been contributing (at least 900 cc calculated), off free water boluses via dobhoff, Na level back up > 145 and corrected even higher. Will encourage PO intake when awake/alert but will put back on D5W IVF + KCl at a lower rate -Pt transitioned off Insulin drip, adjust basal Insulin as BG > 250 this AM. -Abx per primary team, monitor Vanc levels closely and dose meds for reduced CrCl. Vanc levels checked have been < 20 or close to it, pharmacy monitoring -K level back down, pt received IV and PO KCL. Recheck this afternoon Bill Tran MD, ASHLEY
[2022-02-09] MEDS: INSULIN GLARGINE 100 UNIT/ML SQ SCH (12:24)
[2022-02-09] MEDS: D5W 1,000 ML with POTASSIUM CL 20 MEQ IV SCH ×2 (12:56)
--- NOTE | 2022-02-09 13:09 | P.PN ---
Subjective Date of Service: 02/09/22 Chief Complaint: DKA, Severe Sepsis, perirectal abscess This morning, she has improved significantly. She is now alert and oriented x2 to person and place. She is able to tell me that she is in the hospital because she is sick, but she is unable to tell me the date. When asked the year, she replies "1990." She removed her Dobhoff overnight, but RN states that she passed bedside swallow test. She is following commands reliably this morning. If tolerated, will start clear liquids and maintain her on aspiration precautions. Review of Systems is unable to be obtained Physical Examination - Vital Signs Temperature: 97 F Blood Pressure: 143/75 Pulse: 83 Respirations: 12 Pulse Ox (%): 99 Assessment And Plan - Plan - Physical Exam General: Alert, In no apparent distress, Oriented x2 to person and place HEENT: Atraumatic, Mucous membr. moist/pink, EOMI, Sclerae nonicteric Neck: Supple Respiratory: Clear to auscultation bilaterally, Diminished Cardiovascular: No edema, Regular rate/rhythm, Normal S1 S2, No gallops, No rubs, No murmurs Capillary refill: <2 Seconds Gastrointestinal: Normal bowel sounds, Soft and benign, Non-distended, No tenderness, No rebound, No guarding Musculoskeletal: No clubbing Integumentary: Rash(es) (Surgical site is covered in clean, dry surgical dressing. Exam performed alongside FISH INSPECTORLiseth) Neurological: Moving all four extremities equally. Reliably following commands # Diabetic Ketoacidosis in Type II Diabetes Mellitus - Likely due to medication noncompliance and infection - Hgb A1c > 14.0 % - She removed her Dobhoff tube overnight - Per RN, she passed bedside swallow exam - Will attempt to start clear liquids today - Monitor for refeeding syndrome - Hyperglycemic this morning, increased basal insulin from 25 units to 35 units and increased correction insulin from mild to moderate scale - pH, anion gap, and glucose levels improving - Plan to transfer to Med/Surg over next 24 hours # Severe Sepsis likely secondary to Perianal Abscess s/p Incision & Drainage (02/04/2022) She met sepsis criteria based on HR > 90 bpm, RR > 20 breaths/min, WBC > 12,000, and the suspected source is a perianal abscess. Severe sepsis is suspected due to concern for tissue hypoperfusion/organ dysfunction based on creatinine >2.0 mg/dL (without ESRD) and lactic acid > 2 mmol/L. - General Surgery consulted and spoke with Dr. Lang - recommendations appreciated - S/P Incision and Drainage (02/04/2022) - wound cultures positive for Gram- Positive Rods - await speciation and sensitivities - Consulted Infectious Diseases and spoke with Dr. Arrieta - recommendations appreciated - Sepsis order set was initiated - Lactate trend: 2.4 -> 2.0 - Blood cultures drawn before antibiotics were given - Broad spectrum antibiotics started: Vancomycin + Piperacillin-Tazobactam - In regards to fluids: - 30 mL/kg of IV fluids was given based on patient's actual body weight - Wound care consulted - recommendations appreciated # KDIGO Stage I Acute Kidney Injury on Chronic Kidney Disease Stage III? # High Anion Gap Metabolic Acidosis - Nephrology consulted and spoke with Dr. Tran - recommendations appreciated - Creatinine = up to 2.60 (baseline creatinine ~1.3-1.4?) - Urinalysis = 2+ blood, 2+ protein, 2+ glucose, 4+ ketones - Renal ultrasound = "no evidence of hydronephrosis. Decompressed bladder around a Nogueira catheter." - IV fluids as mentioned above - Monitor creatinine and urine output - Renally dose medications # Acute Toxic Metabolic Encephalopathy likely secondary to above # History of Cerebrovascular Accident - Evaluation thus far: - Labs (02/04) = Na+ 147, Ca2+ 8.4, CO2 16, Glucose 203, Ammonia 38, BUN 21, Vitamin B12 674, TSH 1.06 - ABG (02/04) = pH 7.28, PCO2 26.7, PO2 60.0 - Blood cultures x 2 drawn - Urinalysis = 2+ blood, 2+ protein, 2+ glucose, 4+ ketones - CT head = "CT head examination shows no acute intracranial process." - She denies alcohol use - Management plan: - Neurology consulted and spoke with Dr. Lopez - recommendations appreciated - Recommended EEG despite lorazepam - Unable to obtain MRI due to agitation - Thiamine 100 mg IV daily - Treat above conditions as described above # Obstructive Sleep Apnea - Resume home CPAP when able Jose Chavez M.D.
[2022-02-09] MEDS: COLLAGENASE 30 GM OINTMENT TOP SCH (15:30)
[2022-02-09] MEDS: LORazepam 2 MG/ML VIAL IV PRN (20:30)
[2022-02-09] MEDS ORDERED: HALOPERIDOL LACT 5 MG/ML INJ IV ONE (21:45)
[2022-02-10] MEDS: INSULIN -REGULAR HUMAN 50 UNIT/0.5 ML ML SQ SCH ×5 (00:24→21:15)
[2022-02-10] MEDS: MORPHINE 2 MG/ML SYR IV PRN ×2 (00:25→05:15)
[2022-02-10] MEDS: PIPER TAZO 2.25 GM in NA CHLORIDE 0.9% 100 ML IV SCH ×3 (00:26→17:00)
[2022-02-10] MEDS: D5W 1,000 ML with POTASSIUM CL 20 MEQ IV SCH ×2 (01:38)
[2022-02-10 04:59] LABS: Absolute Lymphocytes (CBC) 1.4 K/uL (0.7-4.9); Hematocrit 30.7 % (36.0-45.0); Lymphocytes % 13.8 % (15.3-44.8); MCV 91.1 fL (80-100); MPV 7.5 fL (7.6-11.3); RBC Red Blood Cell Count 3.37 M/uL (3.86-4.86)
[2022-02-10 05:27] LABS: Albumin 1.6 g/dL (3.4-5.0); Bilirubin Total 0.3 mg/dL (0.2-1.0); Magnesium 1.7 mg/dL (1.8-2.4); Phosphorus 2.6 mg/dL (2.5-4.9); Protein, Total 5.1 g/dL (6.4-8.2)
[2022-02-10 05:29] LABS: Potassium 2.9 mmol/L (3.5-5.1)
[2022-02-10] MEDS ORDERED: MAGNESIUM SULFATE 1 gm IVPB 1 GM/100 ML BAG IV ONE (06:09)
[2022-02-10] MEDS: THIAMINE 200 MG/2 ML INJ IVP SCH (09:25)
[2022-02-10] MEDS: KCL 20 MEQ/100 mL IVPB 20 MEQ/100 ML BAG IV SCH ×3 (09:25→13:20)
[2022-02-10] MEDS: ENOXAPARIN 30 MG/0.3 ML SQ SCH (09:25)
--- NOTE | 2022-02-10 09:40 | RAD REPORT ---
EXAM DESCRIPTION: RAD - Abdomen 1 View (KUB) - 02/08/2022 5:43 am CLINICAL HISTORY: S/P KUB insertion COMPARISON: February 07, 2022 FINDINGS: Tip of the NG tube terminates over the body the stomach. The bowel gas pattern is nonobstr uctive. No organomegaly. Osseous structures are intact. IMPRESSION: NG tube placement. RECOMMENDATIONS: Electronically signed by: Fuad Sherman MD 02/08/2022 7:03 AM [employer] Due to temporary technical issues with the PACS/Fluency reporting system, reports are being signed by the in house radiologists without review as a courtesy to insure prompt reporting. The interpreting radiologist is fully responsible for the content of the report.
--- NOTE | 2022-02-10 10:03 | P.PN ---
Date of Service: 02/10/22 Subjective More awake and alert. Spoke with nursing staff and at this time we will continue with advancing patient's diet and physical activity. Patient did have a rectal tube but according to the nursing staff this was removed. Review of Systems is unable to be obtained Physical Examination - Vital Signs reviewed - Physical Exam General: Alert, In no apparent distress, Oriented x2 to person and place Respiratory: Clear to auscultation bilaterally, Diminished Cardiovascular: No edema, Regular rate/rhythm, Normal S1 S2, No gallops, No rubs, No murmurs Gastrointestinal: Normal bowel sounds, Soft and benign, Non-distended, No tenderness, No rebound, No guarding Integumentary: Dressing intact Neurological: Moving all four extremities equally. Reliably following commands Assessment And Plan - Assessment # Diabetic Ketoacidosis in Type II Diabetes Mellitus # Severe Sepsis likely secondary to Perianal Abscess s/p Incision & Drainage (02/04/2022) # KDIGO Stage I Acute Kidney Injury on Chronic Kidney Disease Stage III? # High Anion Gap Metabolic Acidosis # Acute Toxic Metabolic Encephalopathy likely secondary to above # History of Cerebrovascular Accident # Obstructive Sleep Apnea - Plan -Long acting insulin -OOB and ambulate -Continue with abx -Monitor renal function and labs closely -Aggressive PT -Continue with wound care -Imodium for diarrhea -Stool studies pending -Recovery Manager patient regarding compliance with medications going forward
[2022-02-10 11:05] LABS: Prealbumin 4.3 mg/dL (20-40)
[2022-02-10] MEDS: INSULIN GLARGINE 100 UNIT/ML SQ SCH (13:19)
[2022-02-10] MEDS: COLLAGENASE 30 GM OINTMENT TOP SCH (17:30)
[2022-02-10] MEDS ORDERED: D50W 25 GM/50 ML SYRINGE IV PRN (19:44)
[2022-02-10] MEDS ORDERED: INSULIN -REGULAR HUMAN 50 UNIT/0.5 ML ML ONE (21:14)
[2022-02-10 21:47] LABS: Magnesium 1.9 mg/dL (1.8-2.4); Phosphorus 2.1 mg/dL (2.5-4.9); Potassium 3.4 mmol/L (3.5-5.1)
[2022-02-11] MEDS: PIPER TAZO 2.25 GM in NA CHLORIDE 0.9% 100 ML IV SCH ×3 (00:23→17:27)
[2022-02-11] MEDS: MORPHINE 2 MG/ML SYR IV PRN ×5 (00:23→19:05)
--- NOTE | 2022-02-11 01:27 | PN ---
Subjective: Patient lying in bed in ICU, somnolent, not in any acute distress at this time. Objective: Vital Signs: Reviewed. Lungs: Basal crackles. Heart: S1, S2 regular. Abdomen: Soft, nontender. Bowel sounds present. Wounds noted. Extremities: No edema. Laboratory Data: WBC 10.1, hemoglobin 10.5, platelets 228. BUN 18, creatinine 2.2, albumin is 1.6. Medications: Patient currently on Zosyn and vanco. Assessment And Plan: Status post diabetic ketoacidosis and type 2 diabetes mellitus. Sepsis seconda ry to perianal abscess status post incision and drainage. The patient's leukocytosis has stabilized. Anemia of chronic disease. The patient might need long-term acute care for wound care management. Acute toxic encephalopathy and obstructive sleep apnea. We will follow the patient as needed. NF/MODL Voice ID: [id number] Report ID: [id number]
[2022-02-11] MEDS ORDERED: D10W 125 ML IV PRN (01:31)
[2022-02-11 05:03] LABS: Absolute Lymphocytes (CBC) 1.9 K/uL (0.7-4.9); Hematocrit 33.3 % (36.0-45.0); Lymphocytes % 18.3 % (15.3-44.8); MCV 90.7 fL (80-100); MPV 7.7 fL (7.6-11.3); RBC Red Blood Cell Count 3.67 M/uL (3.86-4.86)
[2022-02-11 05:14] LABS: Albumin 1.8 g/dL (3.4-5.0); Bilirubin Total 0.3 mg/dL (0.2-1.0); Magnesium 1.9 mg/dL (1.8-2.4); Potassium 3.3 mmol/L (3.5-5.1); Protein, Total 5.6 g/dL (6.4-8.2)
[2022-02-11] MEDS ORDERED: POTASSIUM 25 MEQ EFFERV TAB PO ONE (05:49)
[2022-02-11] MEDS: VANCOMYCIN 1.75 GM in NA CHLORIDE 0.9% 500 ML IVPB SCH (05:50)
[2022-02-11] MEDS: INSULIN -REGULAR HUMAN 50 UNIT/0.5 ML ML SQ SCH ×4 (07:30→19:54)
[2022-02-11] MEDS: ENOXAPARIN 30 MG/0.3 ML SQ SCH (08:14)
[2022-02-11] MEDS: THIAMINE 200 MG/2 ML INJ IVP SCH (08:14)
[2022-02-11] MEDS: VANCOMYCIN 1.25 GM in NA CHLORIDE 0.9% 250 ML IVPB SCH (08:44)
[2022-02-11] MEDS: COLLAGENASE 30 GM OINTMENT TOP SCH (10:30)
[2022-02-11] MEDS: INSULIN GLARGINE 100 UNIT/ML SQ SCH (12:14)
[2022-02-11] MEDS ORDERED: POTASSIUM CL SA 10 MEQ TAB PO ONE (16:00)
--- NOTE | 2022-02-11 16:00 | PN ---
Date of Progress Note: 02/11/2022 Reason For Service: Perianal abscess, buttock abscess. Subjective: I discussed the case with the primary doctor and also the nursing called yesterday I hel ped them to do dressing changes and that area shows some improvement. I am glad Dr. Arrieta also is o n the case trying to help us with the proper antibiotic selection. Plan: From the surgical standpoint, I discussed with them just to continue wet-to-dry, the wound VAC . A logistic was discussed also with the staff due to the location and so close proximity to the siobhan s to keep sealing that area will be so challenging that it will not have the effect that we want to a nd the wound VAC will not be effective. So, we are going to continue with the wound care. Whenever she gets discharged, then we [facility]. Today than yesterday, s he is more awake and alert. The medical doctors are working on the rest of the care. From the surgi pura standpoint, just continue same dressing changes. ARSLAN/DAVID Voice ID: [id number] Report ID: [id number]
[2022-02-11] MEDS: FLUCONAZOLE 100 MG TAB PO SCH (17:27)
[2022-02-11] MEDS: LOPERAMIDE HCL 2 MG CAPSULE PO PRN (19:57)
--- NOTE | 2022-02-11 20:40 | P.PN ---
Date of Service: 02/10/22 Vital Signs Temp Pulse Resp BP Pulse Ox 97.8 F 77 15 143/70 H 98 02/11/22 16:00 02/11/22 20:00 02/11/22 20:00 02/11/22 20:00 02/11/22 19:35 Medications Acetaminophen (Acetaminophen 325 Mg Tablet) 650 mg PO Q6H PRN PRN Reason: Pain scale 5-7 (Moderate) Collagenase (Collagenase 30 Gm Ointment) 1 appl TOP DAILY [facility] Last Admin: 02/11/22 10:30 Dose: 1 appl Enoxaparin Sodium (Enoxaparin 30 Mg/0.3 Ml) 30 mg SQ DAILY [facility] Last Admin: 02/11/22 08:14 Dose: 30 mg Fluconazole (Fluconazole 100 Mg Tab) 200 mg PO DAILY [facility]; Protocol Last Admin: 02/11/22 17:27 Dose: 200 mg Glucagon (Glucagon 1 Mg/Vial) 1 mg IM 1X PRN PRN Reason: HYPOGLYCEMIA Dextrose (D10w 500 Ml Ivpb) 125 mls @ 0 mls/hr IV PRN PRN; Protocol PRN Reason: HYPOGLYCEMIA Piperacillin Sod/Tazobactam (Sod 2.25 gm/ Sodium Chloride) 100 mls @ 25 mls/hr IV Q8HR [facility]; Protocol Last Admin: 02/11/22 17:27 Dose: 100 mls Dextrose (Dextrose 10% Water Iv Soln.) 125 mls @ 0 mls/hr IV .Q0M PRN PRN Reason: HYPOGLYCEMIA Vancomycin HCl 1.25 gm/ Sodium (Chloride) 250 mls @ 166.667 mls/hr IVPB Q48H [facility] Last Admin: 02/11/22 08:44 Dose: 250 mls Insulin Glargine (Insulin Glargine 100 Unit/Ml) 35 unit SQ NOON [facility] Last Admin: 02/11/22 12:14 Dose: 35 unit Insulin Human Regular (Insulin -Regular Human 50 Unit/0.5 Ml Ml) 0 unit SQ ACHS [facility]; Protocol Last Admin: 02/11/22 19:54 Dose: 5 unit Loperamide HCl (Loperamide Hcl 2 Mg Capsule) 2 mg PO Q6H PRN PRN Reason: DIARRHEA Last Admin: 02/11/22 19:57 Dose: 2 mg Lorazepam (Lorazepam 2 Mg/Ml Vial) 1 mg IV Q6H PRN PRN Reason: AGITATION Last Admin: 02/09/22 20:30 Dose: 1 mg Morphine Sulfate (Morphine 2 Mg/Ml Syr) 2 mg IV Q4H PRN PRN Reason: Pain scale 8-10 (Severe) Last Admin: 02/11/22 19:05 Dose: 2 mg Nutritional Formula (Vital Hp 1,000 Ml Bot) 0 ml RTH CONT [id number] Last Admin: 02/07/22 11:30 Dose: 1,000 ml Ondansetron HCl (Ondansetron 4 Mg/2 Ml Vial) 4 mg IV Q6H PRN PRN Reason: NAUSEA / VOMITING Last Admin: 02/04/22 21:55 Dose: 4 mg Thiamine HCl (Thiamine 200 Mg/2 Ml Inj) 100 mg IVP DAILY [facility] Last Admin: 02/11/22 08:14 Dose: 100 mg Microbiology Results 02/03/22 00:10 Blood - Blood Aerobic Blood Culture - Final No growth in 5 days. 02/03/22 00:10 Blood - Blood Anaerobic Blood Culture - Final 02/02/22 23:35 Blood - Blood Aerobic Blood Culture - Final No growth in 5 days. 02/02/22 23:35 Blood - Blood Anaerobic Blood Culture - Final No growth in 5 days. 02/03/22 00:39 Catheterized Urine [place] Count - Final No growth. 02/03/22 00:39 Catheterized Urine - Final No growth. Assessment/ Plan: Nephrology No dyspnea No chest pain Improving mental status Anorexia Weakness and fatigue No acute events overnight Vitals, medications, blood work and imaging reviewed in the chart. NAD. NCAT. DMM. Neck supple. Normal respiratory effort. RRR. Abd ND. No C/C/E. No rash. AAO. Soft speech. Stage II MARTINEZ CKD IIIb with proteinuria -No NSAIDs Hypernatremia -Encourage free water intake Hypokalemia -Replete as ordered Hypomagnesemia -Replete prn HypoPO4 -Replete prn -Encourage nutrition DM II with CKD DKA -Continue Lantus -RISS Hypoalbuminemia Severe malnutrition with anorexia Decreased functional ability -Encourage nutrition -Consider protein supplementation Anemia in chronic illness -Monitor H&H
--- NOTE | 2022-02-11 20:50 | P.PN ---
Date of Service: 02/11/22 Vital Signs Temp Pulse Resp BP Pulse Ox 97.8 F 77 15 143/70 H 98 02/11/22 16:00 02/11/22 20:00 02/11/22 20:00 02/11/22 20:00 02/11/22 19:35 Medications Acetaminophen (Acetaminophen 325 Mg Tablet) 650 mg PO Q6H PRN PRN Reason: Pain scale 5-7 (Moderate) Collagenase (Collagenase 30 Gm Ointment) 1 appl TOP DAILY [facility] Last Admin: 02/11/22 10:30 Dose: 1 appl Enoxaparin Sodium (Enoxaparin 30 Mg/0.3 Ml) 30 mg SQ DAILY [facility] Last Admin: 02/11/22 08:14 Dose: 30 mg Fluconazole (Fluconazole 100 Mg Tab) 200 mg PO DAILY [facility]; Protocol Last Admin: 02/11/22 17:27 Dose: 200 mg Glucagon (Glucagon 1 Mg/Vial) 1 mg IM 1X PRN PRN Reason: HYPOGLYCEMIA Dextrose (D10w 500 Ml Ivpb) 125 mls @ 0 mls/hr IV PRN PRN; Protocol PRN Reason: HYPOGLYCEMIA Piperacillin Sod/Tazobactam (Sod 2.25 gm/ Sodium Chloride) 100 mls @ 25 mls/hr IV Q8HR [facility]; Protocol Last Admin: 02/11/22 17:27 Dose: 100 mls Dextrose (Dextrose 10% Water Iv Soln.) 125 mls @ 0 mls/hr IV .Q0M PRN PRN Reason: HYPOGLYCEMIA Vancomycin HCl 1.25 gm/ Sodium (Chloride) 250 mls @ 166.667 mls/hr IVPB Q48H [facility] Last Admin: 02/11/22 08:44 Dose: 250 mls Insulin Glargine (Insulin Glargine 100 Unit/Ml) 35 unit SQ NOON [facility] Last Admin: 02/11/22 12:14 Dose: 35 unit Insulin Human Regular (Insulin -Regular Human 50 Unit/0.5 Ml Ml) 0 unit SQ ACHS [facility]; Protocol Last Admin: 02/11/22 19:54 Dose: 5 unit Loperamide HCl (Loperamide Hcl 2 Mg Capsule) 2 mg PO Q6H PRN PRN Reason: DIARRHEA Last Admin: 02/11/22 19:57 Dose: 2 mg Lorazepam (Lorazepam 2 Mg/Ml Vial) 1 mg IV Q6H PRN PRN Reason: AGITATION Last Admin: 02/09/22 20:30 Dose: 1 mg Morphine Sulfate (Morphine 2 Mg/Ml Syr) 2 mg IV Q4H PRN PRN Reason: Pain scale 8-10 (Severe) Last Admin: 02/11/22 19:05 Dose: 2 mg Nutritional Formula (Vital Hp 1,000 Ml Bot) 0 ml RTH CONT [id number] Last Admin: 02/07/22 11:30 Dose: 1,000 ml Ondansetron HCl (Ondansetron 4 Mg/2 Ml Vial) 4 mg IV Q6H PRN PRN Reason: NAUSEA / VOMITING Last Admin: 02/04/22 21:55 Dose: 4 mg Thiamine HCl (Thiamine 200 Mg/2 Ml Inj) 100 mg IVP DAILY [facility] Last Admin: 02/11/22 08:14 Dose: 100 mg Microbiology Results 02/03/22 00:10 Blood - Blood Aerobic Blood Culture - Final No growth in 5 days. 02/03/22 00:10 Blood - Blood Anaerobic Blood Culture - Final 02/02/22 23:35 Blood - Blood Aerobic Blood Culture - Final No growth in 5 days. 02/02/22 23:35 Blood - Blood Anaerobic Blood Culture - Final No growth in 5 days. 02/03/22 00:39 Catheterized Urine [place] Count - Final No growth. 02/03/22 00:39 Catheterized Urine - Final No growth. Assessment/ Plan: Nephrology No dyspnea No chest pain Anorexia Weakness and fatigue Requesting treatment for a yeast infection No acute events overnight Vitals, medications, blood work and imaging reviewed in the chart. NAD. NCAT. DMM. Neck supple. Normal respiratory effort. RRR. Abd ND. No C/C/E. No rash. AAO. Soft speech. Nogueira clear Stage II MARTINEZ CKD IIIb with proteinuria -No NSAIDs Hypernatremia -Encourage free water intake Hypokalemia -Replete as ordered Hypomagnesemia -Replete prn HypoPO4 -Replete prn -Encourage nutrition DM II with CKD DKA -Continue Lantus -RISS Hypoalbuminemia Severe malnutrition with anorexia Decreased functional ability -Encourage nutrition -Consider protein supplementation Anemia in chronic illness -Monitor H&H
[2022-02-12] MEDS: PIPER TAZO 2.25 GM in NA CHLORIDE 0.9% 100 ML IV SCH ×3 (01:18→17:30)
[2022-02-12] MEDS: MORPHINE 2 MG/ML SYR IV PRN ×3 (01:35→16:32)
[2022-02-12] MEDS: LOPERAMIDE HCL 2 MG CAPSULE PO PRN ×2 (04:56→18:09)
[2022-02-12 05:50] LABS: Phosphorus 3.8 mg/dL (2.5-4.9); Potassium 3.2 mmol/L (3.5-5.1)
[2022-02-12] MEDS ORDERED: POTASSIUM 25 MEQ EFFERV TAB PO ONE (06:13)
[2022-02-12] MEDS: INSULIN -REGULAR HUMAN 50 UNIT/0.5 ML ML SQ SCH ×4 (07:30→21:36)
[2022-02-12] MEDS: FLUCONAZOLE 100 MG TAB PO SCH (08:40)
[2022-02-12] MEDS: THIAMINE 200 MG/2 ML INJ IVP SCH (08:40)
[2022-02-12] MEDS: ENOXAPARIN 30 MG/0.3 ML SQ SCH (08:40)
[2022-02-12] MEDS: COLLAGENASE 30 GM OINTMENT TOP SCH (10:45)
[2022-02-12] MEDS: INSULIN GLARGINE 100 UNIT/ML SQ SCH (11:55)
--- NOTE | 2022-02-12 15:12 | PN ---
Subjective: The patient is getting physical therapy with Physical Therapy team. Able to walk around the ICU. The patient denies any chest pain, back pain, abdominal pain. Continued to have diarrhea and pain in the wound site. Objective: Vital Signs: Temperature 97.5, pulse 82, respirations 15, blood pressure 135/75. Lungs: Clear to auscultation. Heart: S1, S2. Regular. Abdomen: Soft. Bowel sounds present. Extremity: Trace edema. Laboratory Data: Shows WBC 10.5, hemoglobin 11.3, platelets are 242. Chemistry shows a BUN of 13, c reatinine 2.3. Cultures have shown no growth on 02/02 and 02/04. Assessment And Plan: 1.Perirectal abscess in a patient with diabetes mellitus and recent episode of diabetic ketoacidosis , severe sepsis secondary to perianal abscess, improving. The patient is currently on vancomycin and Zosyn. 2.Diarrhea, most likely secondary to malabsorption versus colitis. We will send stool for studies a nd Clostridium difficile, and WBC. Continue IV antibiotic as the patient has diarrhea. We will not recommend to switch to oral antibiotic at this point. Consider long-term acute care for management o f wound and antibiotic therapy complicated with diarrhea. Consider probiotic. 3.History of stroke. We will follow the patient closely. Continue antibiotic and supportive care. Monitor for signs of infection with WBC and fever trends. NF/MODL Voice ID: [id number] Report ID: [id number]
[2022-02-12] MEDS ORDERED: POTASSIUM CL SA 10 MEQ TAB PO ONE (21:00)
[2022-02-13] MEDS: PIPER TAZO 2.25 GM in NA CHLORIDE 0.9% 100 ML IV SCH ×3 (00:48→17:00)
[2022-02-13] MEDS: MORPHINE 2 MG/ML SYR IV PRN ×4 (02:30→20:49)
[2022-02-13] MEDS: LOPERAMIDE HCL 2 MG CAPSULE PO PRN (02:31)
[2022-02-13] MEDS: INSULIN -REGULAR HUMAN 50 UNIT/0.5 ML ML SQ SCH ×4 (07:30→20:48)
[2022-02-13] MEDS: VANCOMYCIN 1.25 GM in NA CHLORIDE 0.9% 250 ML IVPB SCH (09:00)
[2022-02-13 09:48] LABS: C.diff Antigen/Toxin Ag neg : Tox neg (NEG : NEG)
[2022-02-13] MEDS: ENOXAPARIN 30 MG/0.3 ML SQ SCH (10:19)
[2022-02-13] MEDS: VANCOMYCIN 1 GM in NA CHLORIDE 0.9% 250 ML IVPB SCH (10:20)
[2022-02-13] MEDS: FLUCONAZOLE 100 MG TAB PO SCH (10:22)
[2022-02-13] MEDS: COLLAGENASE 30 GM OINTMENT TOP SCH (10:22)
[2022-02-13] MEDS: THIAMINE 200 MG/2 ML INJ IVP SCH (10:22)
--- NOTE | 2022-02-13 11:03 | P.PN ---
Nephrology note: (S) Pt seen after several days, now awake/alert/oriented, reports oral intake of food is low, has some intermittent nausea. No other complaints. (O) Vitals reviewed in the EMR General: NAD HEENT: Atraumatic, Normocephalic, Other (NC present), NGT present Neck: Supple Respiratory: Non tachypnec, Normal air movement Cardiovascular: No edema, Normal S1 S2, Other. Non tachy Gastrointestinal: Soft and benign, Non-distended Musculoskeletal: No contractures, No erythema. Restraints in place Integumentary: No rashes Neurological: Awake, alert, oriented, non focal Conclusions/Impression: A/P 1. Abnormal results of kidney function studies 2. Stage II MARTINEZ 3. Severe acidemia on presentation 2nd to AG metab acidosis with DKA, other - resolved 4. Hypokalemia, hypomagnesemia recurrent -improved 5. Volume depletion, hypernatremia -resolved 6. Sepsis 2nd to unspecified organism -resolved 7. Hypophosphatemia -improved 8. AMS 2nd to toxic metab encephalopathy +/- other -resolved 9. Leukocytosis -resolved -Cr level remain plateaued and have yet to downward trend, pt did likely suffer some intrinsic injury/mild ATN, other which may explain why levels have failed to downward trend. Pt may also have some underlying CKD NOS, baseline Cr level of 1.4 mg/dl mentioned by family. Con to monitor closely -Water deficit improved. -Cont to monitor and replete lytes as PO intake low and reports some intermittent N/V -Abx per primary team, monitor Vanc levels closely and dose meds for reduced CrCl. Vanc levels checked have been < 20 or close to it, pharmacy monitoring Bill Tran MD, ASHLEY
[2022-02-13 11:13] LABS: Albumin 1.8 g/dL (3.4-5.0); Bilirubin Total 0.3 mg/dL (0.2-1.0); Protein, Total 5.7 g/dL (6.4-8.2)
[2022-02-13 11:14] LABS: Potassium 3.7 mmol/L (3.5-5.1)
[2022-02-13] MEDS: INSULIN GLARGINE 100 UNIT/ML SQ SCH (12:00)
[2022-02-13 12:15] LABS: Absolute Lymphocytes (CBC) 2.1 K/uL (0.7-4.9); Hematocrit 28.7 % (36.0-45.0); Lymphocytes % 16.9 % (15.3-44.8); MCV 91.7 fL (80-100); MPV 7.5 fL (7.6-11.3); RBC Red Blood Cell Count 3.13 M/uL (3.86-4.86)
--- NOTE | 2022-02-13 13:53 | P.PN ---
Date of Service: 02/11/22 Subjective Starting to participate with physical therapy. Clinical symptoms are improving. Diarrhea has slowed down. C. difficile pending. Review of Systems is unable to be obtained Physical Examination - Vital Signs reviewed - Physical Exam General: Alert, In no apparent distress, Oriented x2 to person and place Respiratory: Clear to auscultation bilaterally, Diminished Cardiovascular: No edema, Regular rate/rhythm, Normal S1 S2, No gallops, No rubs, No murmurs Gastrointestinal: Normal bowel sounds, Soft and benign, Non-distended, No tenderness, No rebound, No guarding Integumentary: Dressing intact Neurological: Moving all four extremities equally. Reliably following commands Assessment And Plan - Assessment # Diabetic Ketoacidosis in Type II Diabetes Mellitus # Severe Sepsis likely secondary to Perianal Abscess s/p Incision & Drainage (02/04/2022) # KDIGO Stage I Acute Kidney Injury on Chronic Kidney Disease Stage III? 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
--- NOTE | 2022-02-13 13:55 | P.PN ---
Date of Service: 02/12/22 Subjective Able to walk significantly with physical therapy. She will need care and she wants to go to a detention facility. alf facility placement for wound care along with physical therapy. Blood sugars are improved as well. Review of Systems is unable to be obtained Physical Examination - Vital Signs reviewed - Physical Exam General: Alert, In no apparent distress, Oriented x2 to person and place Respiratory: Clear to auscultation bilaterally, Diminished Cardiovascular: No edema, Regular rate/rhythm, Normal S1 S2, No gallops, No rubs, No murmurs Gastrointestinal: Normal bowel sounds, Soft and benign, Non-distended, No tenderness, No rebound, No guarding Integumentary: Dressing intact Neurological: Strength is improving Assessment And Plan - Assessment # Diabetic Ketoacidosis in Type II Diabetes Mellitus # Severe Sepsis likely secondary to Perianal Abscess s/p Incision & Drainage (02/04/2022) # KDIGO Stage I Acute Kidney Injury on Chronic Kidney Disease Stage III? 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
--- NOTE | 2022-02-13 13:55 | P.PN ---
Date of Service: 02/13/22 Subjective Continues to show improvement with physical therapy. She is moved to the floor and doing well. She does have some difficult time finding her words. Otherwise no new complaints. Review of Systems is unable to be obtained Physical Examination - Vital Signs reviewed - Physical Exam General: Alert, In no apparent distress, Oriented x3 to person and place Respiratory: Clear to auscultation bilaterally, Diminished Cardiovascular: No edema, Regular rate/rhythm, Normal S1 S2, No gallops, No rubs, No murmurs Gastrointestinal: Normal bowel sounds, Soft and benign, Non-distended, No tenderness, No rebound, No guarding Integumentary: Dressing intact Neurological: Strength is improving Assessment And Plan - Assessment # Diabetic Ketoacidosis in Type II Diabetes Mellitus # Severe Sepsis likely secondary to Perianal Abscess s/p Incision & Drainage (02/04/2022) # KDIGO Stage I Acute Kidney Injury on Chronic Kidney Disease Stage III? 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
--- NOTE | 2022-02-13 14:07 | EEG ---
CHART: [id number] TEST ID#: [id number] DATE OF STUDY: 02-07-2022 THE EEG WAS RECORDED PORTABLE IN THE ICU ON A 17 CHANNEL MACHINE. ELECTRODES WERE APPLIED IN THE USUAL MANNER USING THE INTERNATIONAL 10-20 SYSTEM. THE WAKING BACKGROUND RHYTHM IN THIS RECORD CONSISTS OF POORLY DEVELOPED AND POORLY ORGANIZED WAVES OF 7-8 HZ., MAXIMAL IN THE POSTERIOR HEAD REGIONS WHICH ATTENUATE NORMALLY WITH EYE OPENING. MODERATE VOLTAGE 1.5-3 HZ ACTIVITY IS DIFFUSELY EXPRESSED. LOW-VOLTAGE 15-18 HZ ACTIVITY IS EXPRESSED IN THE FRONTAL REGIONS. THERE ARE NO FOCAL OR LATERALIZING FEATURES. NO EPILEPTIFORM ACTIVITY APPEARS. SLEEP DID NOT OCCUR. HYPERVENTILATION WAS NOT PERFORMED. PHOTIC STIMULATION PRODUCED NO DRIVING BILATERALLY. IMPRESSION: THIS IS A MODERATELY ABNORMAL EEG DUE TO A DIFFUSELY BACKGROUND. THIS IS A NON-SPECIFIC FINDING INDICATING THE PRESENCE OF A DIFFUSE DYSFUNCTION IN CEREBRAL ACTIVITY.
[2022-02-13] MEDS ORDERED: POTASSIUM CL SA 10 MEQ TAB PO ONE (21:00)
[2022-02-14] MEDS ORDERED: NA CHLORIDE 0.9% 0 ML IV ONE (01:07)
[2022-02-14] MEDS: PIPER TAZO 2.25 GM in NA CHLORIDE 0.9% 100 ML IV SCH ×3 (01:40→17:00)
[2022-02-14] MEDS: MORPHINE 2 MG/ML SYR IV PRN ×4 (02:08→21:29)
[2022-02-14] MEDS: INSULIN -REGULAR HUMAN 50 UNIT/0.5 ML ML SQ SCH ×4 (07:30→20:09)
[2022-02-14 07:59] LABS: Absolute Lymphocytes (CBC) 2.1 K/uL (0.7-4.9); Hematocrit 26.6 % (36.0-45.0); Lymphocytes % 20.4 % (15.3-44.8); MCV 92.6 fL (80-100); RBC Red Blood Cell Count 2.87 M/uL (3.86-4.86)
[2022-02-14 08:21] LABS: Potassium 3.6 mmol/L (3.5-5.1)
[2022-02-14] MEDS ORDERED: POTASSIUM CL SA 10 MEQ TAB PO ONE (08:35)
[2022-02-14] MEDS: COLLAGENASE 30 GM OINTMENT TOP SCH (09:00)
[2022-02-14] MEDS: ENOXAPARIN 30 MG/0.3 ML SQ SCH (09:25)
[2022-02-14] MEDS: FLUCONAZOLE 100 MG TAB PO SCH (09:25)
[2022-02-14] MEDS: THIAMINE 200 MG/2 ML INJ IVP SCH (09:25)
--- NOTE | 2022-02-14 11:15 | P.PN ---
Nephrology note: (S) Pt seen ambulating with walker in the hallways, doing well, no acute complaints. (O) Vitals reviewed in the EMR General: NAD HEENT: Atraumatic, Normocephalic, Other (off NC), NGT removed (note corrected) Neck: Supple Respiratory: Non tachypnec, Normal air movement Cardiovascular: No edema, Normal S1 S2, Other. Non tachy Gastrointestinal: Soft and benign, Non-distended Musculoskeletal: No contractures, No erythema. Integumentary: No rashes Neurological: Awake, alert, oriented, non focal Conclusions/Impression: A/P 1. Abnormal results of kidney function studies 2. Stage II MARTINEZ-stable 3. Severe acidemia on presentation 2nd to AG metab acidosis with DKA, other - resolved 4. Hypokalemia, hypomagnesemia recurrent -improved 5. Volume depletion, hypernatremia -resolved 6. Sepsis 2nd to unspecified organism -resolved 7. Hypophosphatemia -improved 8. AMS 2nd to toxic metab encephalopathy +/- other -resolved 9. Leukocytosis -resolved -Cr level remain plateaued and have yet to downward trend, pt did likely suffer some intrinsic injury/mild ATN, other which may explain why levels have failed to downward trend and remain elevated. Pt may also have some underlying CKD NOS, baseline Cr level of 1.4 mg/dl mentioned by family. Will need to follow up over the next few weeks/months to see where her new baseline renal function trends to. -Will maintain cohen for now as pt reports some urinary incontinence and has a wound area that need to avoid soiling. -Cont to monitor and replete lytes as needed, as PO intake low and reports some intermittent N/V -Abx per primary team, monitor Vanc levels closely and dose meds for reduced CrCl. Vanc levels checked have been < 20, pharmacy monitoring Bill Tran MD, ASHLEY
[2022-02-14] MEDS: INSULIN GLARGINE 100 UNIT/ML SQ SCH (12:00)
--- NOTE | 2022-02-14 13:33 | PN ---
Subjective: Patient is lying in bed. Her diarrhea is much better today as patient is taking Imodium . Denies any chest pain, back pain, or abdominal pain. Continued to have some tenderness in the wou nd site, much better with the antibiotic therapy. Objective: Vital Signs: Temperature 97.3, pulse 72, respirations 16, blood pressure 121/67. Lungs: Basal crackles. Heart: S1, S2. Regular. Abdomen: Soft, nontender. Bowel sounds present. Extremity: No edema. Skin: Wound site noted with small amount of fecal material was also found to be in the wound site. Laboratory Data: WBC 10.4, hemoglobin 9, platelets are 247. Chemistry shows BUN of 11, creatinine 2 .68, glucose of 126. Assessment And Plan: 1.Patient with the recent diabetic ketoacidosis and diabetes mellitus with perianal abscess, status post incision and drainage on 02/04, doing better. Leukocytosis is improving. 2.Renal failure. 3.History of stroke. We will recommend to continue IV antibiotic. Add Lactinex to the treatment. We will recommend for p atient to go to long-term acute care to continue IV antibiotic for another 2 to 3 weeks depending on her wound management and healing. Monitor patient's liver, kidney function while patient is on antibiotic. We will follow patient closely. NF/MODL Voice ID: [id number] Report ID: [id number]
--- NOTE | 2022-02-14 17:52 | P.PN ---
Subjective Date of Service: 02/14/22 Chief Complaint: DKA, Severe Sepsis, perirectal abscess No acute events overnight. She looks significantly improved from a mental standpoint compared to the last time I saw her. She reports generalized weakness. She denies any particular concerns and states that she is eager to discharge to [facility] once accepted. Review of Systems 10-point ROS is otherwise unremarkable General: Weakness (generalized) Physical Examination - Vital Signs Temperature: 97.3 F Blood Pressure: 125/51 Pulse: 60 Respirations: 16 Pulse Ox (%): 96 - Physical Exam General: Alert, In no apparent distress, Oriented x3 HEENT: Atraumatic, PERRLA, Mucous membr. 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 Lang - recommendations appreciated - S/P Incision and Drainage (02/04/2022) - wound cultures positive for Gram- Positive Rods - await speciation and sensitivities - Consulted Infectious Diseases and spoke with Dr. Arrieta - recommendations appreciated - Sepsis order set was initiated - Lactate trend: 2.4 -> 2.0 - Blood cultures drawn before antibiotics were given - Broad spectrum antibiotics started: Vancomycin + Piperacillin-Tazobactam - In regards to fluids: - 30 mL/kg of IV fluids was given based on patient's actual body weight - Wound care consulted - recommendations appreciated # KDIGO Stage I Acute Kidney Injury on Chronic Kidney Disease Stage III? # High Anion Gap Metabolic Acidosis - Nephrology consulted and spoke with Dr. Tran - recommendations appreciated - Creatinine = hovering around 2.30-2.60 (baseline creatinine ~1.3-1.4?) - Urinalysis = 2+ blood, 2+ protein, 2+ glucose, 4+ ketones - Renal ultrasound = "no evidence of hydronephrosis. Decompressed bladder around a Nogueira catheter." - IV fluids as mentioned above - Monitor creatinine and urine output - Renally dose medications # Acute Toxic Metabolic Encephalopathy likely secondary to above (resolved) # History of Cerebrovascular Accident # Obstructive Sleep Apnea - Resume home CPAP when able Jose Chavez M.D.
[2022-02-14] MEDS: LACTOBACILLUS/ACIDOPHILUS TAB PO SCH (20:11)
[2022-02-15] MEDS: PIPER TAZO 2.25 GM in NA CHLORIDE 0.9% 100 ML IV SCH ×3 (00:39→16:57)
[2022-02-15 05:25] LABS: Potassium 3.5 mmol/L (3.5-5.1)
[2022-02-15] MEDS: INSULIN -REGULAR HUMAN 50 UNIT/0.5 ML ML SQ SCH ×4 (07:30→20:15)
[2022-02-15] MEDS: COLLAGENASE 30 GM OINTMENT TOP SCH (09:00)
[2022-02-15] MEDS ORDERED: POTASSIUM CL SA 10 MEQ TAB PO ONE (09:00)
[2022-02-15] MEDS: ENOXAPARIN 30 MG/0.3 ML SQ SCH (09:39)
[2022-02-15] MEDS: HYDROCODONE/APAP 5/325 MG TAB PO PRN ×2 (09:40→16:22)
[2022-02-15] MEDS: THIAMINE 200 MG/2 ML INJ IVP SCH (09:40)
[2022-02-15] MEDS: LACTOBACILLUS/ACIDOPHILUS TAB PO SCH ×2 (09:40→20:15)
[2022-02-15] MEDS: FLUCONAZOLE 100 MG TAB PO SCH (09:40)
[2022-02-15] MEDS: VANCOMYCIN 1 GM in NA CHLORIDE 0.9% 250 ML IVPB SCH (10:58)
[2022-02-15] MEDS: INSULIN GLARGINE 100 UNIT/ML SQ SCH (12:00)
--- NOTE | 2022-02-15 13:46 | P.PN ---
Subjective Date of Service: 02/15/22 Chief Complaint: DKA, Severe Sepsis, perirectal abscess No acute events overnight. She reports that she feels well overall. She reports generalized weakness and believes that she would benefit most from continued physical therapy in the post-acute setting. Review of Systems 10-point ROS is otherwise unremarkable General: Weakness (generalized) Musculoskeletal: Other (perineal wound) Physical Examination - Vital Signs Temperature: 97.0 F Blood Pressure: 133/69 Pulse: 67 Respirations: 16 Pulse Ox (%): 98 Assessment And Plan - Plan - Physical Exam General: Alert, In no apparent distress, Oriented x3 HEENT: Atraumatic, PERRLA, Mucous membr. 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 Lang - recommendations appreciated - S/P Incision and Drainage (02/04/2022) - wound cultures positive for Gram- Positive Rods - await speciation and sensitivities - Consulted Infectious Diseases and spoke with Dr. Arrieta - recommendations appreciated - Sepsis order set was initiated - Lactate trend: 2.4 -> 2.0 - Blood cultures drawn before antibiotics were given - Broad spectrum antibiotics started: Vancomycin + Piperacillin-Tazobactam - In regards to fluids: - 30 mL/kg of IV fluids was given based on patient's actual body weight - Wound care consulted - recommendations appreciated # KDIGO Stage I Acute Kidney Injury on Chronic Kidney Disease Stage III? # High Anion Gap Metabolic Acidosis - Nephrology consulted and spoke with Dr. Bell - recommendations appreciated - Creatinine = hovering around 2.30-2.60 (baseline creatinine ~1.3-1.4?) - Urinalysis = 2+ blood, 2+ protein, 2+ glucose, 4+ ketones - Renal ultrasound = "no evidence of hydronephrosis. Decompressed bladder around a Nogueira catheter." - IV fluids as mentioned above - Monitor creatinine and urine output - Renally dose medications # Acute Toxic Metabolic Encephalopathy likely secondary to above (resolved) # History of Cerebrovascular Accident # Obstructive Sleep Apnea - Resume home CPAP Jose Chavez M.D.
[2022-02-15] MEDS ORDERED: DRISDOL (VITAMIN D=ERGOCALCIFEROL) 50000 UNIT CAP PO SCH (14:00)
[2022-02-15] MEDS ORDERED: VANCOMYCIN 500 MG in NA CHLORIDE 0.9% 100 ML IVPB ONE (14:15)
--- NOTE | 2022-02-15 18:54 | PN ---
Date of Progress Note: 02/15/2022 Subjective: The patient is alert, awake, and comfortable. Denies any headache, nausea, or vomiting. She states she feels overall better, improving. Strength is improving. She still has a Nogueira cath eter and she says the wound is healing well in her privates, so she sates that Wound Care and ID is f clementeing that. Objective: Vital Signs: Blood pressure is stable at 133/69, last pulse is 67, respirations around 1 4. She is afebrile, O2 saturations are 98%. General: She does not complain of any pain currently. Lungs: Clear to auscultation. Abdomen: Soft. Extremities: Reveal no edema. Heart: Sounds are regular. Laboratory Data: The lab work is from yesterday; WBC at 10.4, hemoglobin 9, hematocrit 26.6, platele t count is 247. Chemistries show from today, sodium 140, potassium 3.5, chloride 106, bicarb is 29, BUN is 11, creatinine is 2.74 and relatively stable compared to past few days when it has been runnin g at about 2.68, 2.59, 2.3, 2.3, 2.63 on February 08. Assessment And Plan: 1.Acute kidney injury/chronic kidney disease. The patient currently seems to be stabilizing, david leonardo in the setting of infection. Currently being treated with antibiotics. Volume st atus seems to be close to euvolemic. Denies any pain. Continue with current care and antibiotics. Will need follow up in clinic for evaluation of her status of chronic kidney disease at baseline and after acute issues are resolved and management of the same going forward. 2.Hypocalcemia. The patient has taken ergocalciferol in the past. Will give her ergocalciferol aga in today and then can be continued every 7 days for 4 treatments and then reassess for further treatm ent going forward. 3.Electrolytes, sodium, potassium, and volume status seem reasonable. Continue to encourage balance d diet. 4.Infection. A Nogueira catheter in place to avoid seeding of the wound area. We will defer treatment to wound care and ID. Dose antibiotics accordingly to renal function. Goal vancomycin level should be between around 15-20, but will defer to ID for dosing. /DAVID Voice ID: [id number] Report ID: [id number]
[2022-02-16] MEDS: PIPER TAZO 2.25 GM in NA CHLORIDE 0.9% 100 ML IV SCH ×3 (01:03→16:45)
[2022-02-16 05:28] VITALS: BMI 39.3
[2022-02-16 05:50] LABS: Potassium 3.5 mmol/L (3.5-5.1)
[2022-02-16] MEDS: HYDROCODONE/APAP 5/325 MG TAB PO PRN ×3 (06:39→22:00)
[2022-02-16] MEDS: INSULIN -REGULAR HUMAN 50 UNIT/0.5 ML ML SQ SCH ×4 (07:30→21:00)
[2022-02-16] MEDS: ENOXAPARIN 30 MG/0.3 ML SQ SCH (08:39)
[2022-02-16] MEDS: LACTOBACILLUS/ACIDOPHILUS TAB PO SCH ×2 (08:42→21:59)
[2022-02-16] MEDS: THIAMINE 200 MG/2 ML INJ IVP SCH (08:42)
[2022-02-16] MEDS: FLUCONAZOLE 100 MG TAB PO SCH (08:42)
[2022-02-16] MEDS: COLLAGENASE 30 GM OINTMENT TOP SCH (08:43)
[2022-02-16] MEDS ORDERED: POTASSIUM CL SA 10 MEQ TAB PO ONE (09:00)
[2022-02-16] MEDS: INSULIN GLARGINE 100 UNIT/ML SQ SCH (12:10)
--- NOTE | 2022-02-16 14:23 | P.PN ---
Subjective Date of Service: 02/16/22 Chief Complaint: DKA, Severe Sepsis, perirectal abscess No acute events overnight. She states that she is feeling significantly better. She states that yesterday, she was able to ambulate two laps around the nursing station. She states that she does not feel that she needs SNF or LTAC. She states that she would like to be discharged today or tomorrow if we are able to arrange Home Health. She follows with [facility]. Review of Systems 10-point ROS is otherwise unremarkable General: Weakness (generalized, improved) Physical Examination - Vital Signs Temperature: 97.5 F Blood Pressure: 133/71 Pulse: 66 Respirations: 16 Pulse Ox (%): 98 Assessment And Plan - Plan - Physical Exam General: Alert, In no apparent distress, Oriented x3 HEENT: Atraumatic, PERRLA, Mucous membr. 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 Bull at [facility]. He states that he will assist in arranging Home Health and Wound Care through [facility] tomorrow morning - She has declined SNF and LTAC placement # Diabetic Ketoacidosis in Type II Diabetes Mellitus (resolved) - Likely due to medication noncompliance and infection - Hgb A1c > 14.0 % - Continue insulin regimen and adjust as needed # Severe Sepsis likely secondary to Perianal Abscess s/p Incision & Drainage () - resolved - General Surgery consulted and spoke with Dr. Lang - recommendations appreciated - S/P Incision and Drainage (02/04/2022) - wound cultures positive for Gram-Positive Rods - await speciation and sensitivities - Consulted Infectious Diseases and spoke with Dr. Arrieta - recommendations appreciated - Sepsis order set was initiated - Lactate trend: 2.4 -> 2.0 - Blood cultures drawn before antibiotics were given - Broad spectrum antibiotics started: Vancomycin + Piperacillin-Tazobactam - In regards to fluids: - 30 mL/kg of IV fluids was given based on patient's actual body weight - Wound care consulted - recommendations appreciated # KDIGO Stage I Acute Kidney Injury on Chronic Kidney Disease Stage III? # High Anion Gap Metabolic Acidosis - Nephrology consulted and spoke with Dr. Bell - recommendations appreciated - Creatinine = hovering around 2.30-2.60 (baseline creatinine ~1.3-1.4?) - Urinalysis = 2+ blood, 2+ protein, 2+ glucose, 4+ ketones - Renal ultrasound = "no evidence of hydronephrosis. Decompressed bladder around a Nogueira catheter." - IV fluids as mentioned above - Monitor creatinine and urine output - Renally dose medications # Acute Toxic Metabolic Encephalopathy likely secondary to above (resolved) # History of Cerebrovascular Accident # Obstructive Sleep Apnea - Resume home CPAP Jose Chavez M.D. Physician Review: Patient Assessed, Agree with Above Assessment and Plan
[2022-02-17] MEDS: PIPER TAZO 2.25 GM in NA CHLORIDE 0.9% 100 ML IV SCH ×2 (01:40→08:20)
[2022-02-17] MEDS: HYDROCODONE/APAP 5/325 MG TAB PO PRN (05:37)
[2022-02-17 05:58] LABS: Potassium 3.4 mmol/L (3.5-5.1)
[2022-02-17] MEDS: INSULIN -REGULAR HUMAN 50 UNIT/0.5 ML ML SQ SCH ×3 (07:30→16:48)
[2022-02-17] MEDS: ENOXAPARIN 30 MG/0.3 ML SQ SCH (08:20)
[2022-02-17] MEDS: LACTOBACILLUS/ACIDOPHILUS TAB PO SCH (08:21)
[2022-02-17] MEDS: THIAMINE 200 MG/2 ML INJ IVP SCH (08:21)
[2022-02-17] MEDS: FLUCONAZOLE 100 MG TAB PO SCH (08:21)
[2022-02-17] MEDS: COLLAGENASE 30 GM OINTMENT TOP SCH (08:22)
[2022-02-17] MEDS ORDERED: POTASSIUM CL SA 10 MEQ TAB PO ONE (09:00)
[2022-02-17 09:42] VITALS: O2SAT 95
[2022-02-17] MEDS ORDERED: VANCOMYCIN 1.25 GM in NA CHLORIDE 0.9% 250 ML IVPB SCH (10:00)
[2022-02-17] MEDS ORDERED: FLUCONAZOLE 100 MG TAB PO SCH (11:00)
[2022-02-17] MEDS: INSULIN GLARGINE 100 UNIT/ML SQ SCH (12:24)
--- NOTE | 2022-02-17 16:22 | P.DS ---
Admission Date: 02/03/22 Discharge Date: 02/17/22 Disposition: DC HOME/HOME HEALTH CARE Discharge Condition: GOOD Reason for Admission: DKA, Severe Sepsis, perirectal abscess Consultations: 1. Nephrology 2. General Surgery 3. Infectious Diseases 4. Neurology Procedures: - 02/04/2022 - EUA, Anoscopy, Rigid Proctoscopy, with Incision and Drainage of Perianal Abscess (7 cm x 6 cm x 1.5 cm) Hospital Course: DIAGNOSES: # Diabetic Ketoacidosis in Type II Diabetes Mellitus (resolved) # Severe Sepsis likely secondary to Perianal Abscess s/p Incision & Drainage (02/04/2022) - resolved # Acute Toxic Metabolic Encephalopathy likely secondary to above (resolved) # KDIGO Stage I Acute Kidney Injury on Chronic Kidney Disease Stage III # High Anion Gap Metabolic Acidosis # Deconditioning suspect due to Critical Care Myopathy (improved) # History of Cerebrovascular Accident # Obstructive Sleep Apnea HOSPITAL COURSE: Ms. Roxie Eastman is a pleasant 51-year-old female with a past medical history significant for type 2 diabetes mellitus, chronic kidney disease stage III, history of prior cerebrovascular accident, and obstructive sleep apnea who was admitted to the [facility] on 02/03/2022 for altered mental status. She was admitted to the Medicine service. Upon further evaluation, she was found to be in severe diabetic ketoacidosis as well as severe sepsis secondary to a perianal abscess. She was admitted to the intensive care unit and started on insulin and IV fluids via the DKA protocol. After correction of her acidosis, she underwent incision and drainage of the perianal abscess with Dr. Lang. She tolerated the procedure well. However, following the procedure, she remained altered for several days. Neurology was consulted and she was evaluated by Dr. Lopez. He felt that her altered mentation was likely secondary to her metabolic derangements. She was maintained in the ICU on insulin drip and IV antibiotics as her mental status was monitored closely. Around 02/09/2022, she began to exhibit some clearing in her mental status and was able to hold a conversation; although, she was still only alert and oriented x2. Soon after, her mental status would return completely and she would become alert and oriented x 3. Additionally, Nephrology was consulted for her acute kidney injury, and over her hospitalization, her renal function did not improve much. There is concern that she may have developed acute tubular necrosis from her critical illness. This was discussed in detail with Dr. Tran, who feels that it is safe for her to be discharged from a nephrology standpoint given the stability of her renal function over the last several days. She continued to improve over her hospitalization and began working with physical therapy. Infectious Diseases was consulted, and she was evaluated by Dr. Arrieta. He recommended at least 2 weeks of IV antibiotics and that she be placed in a LTAC facility. The placement process was slightly prolonged, and over the course of waiting, she continued to gain her strength back and did well with physical therapy. She states that she was able to ambulate two complete laps around the nursing station, without any difficulties. She requests to be discharged with home health, which is reasonable if she has the appropriate follow-ups. I called and spoke with Dr. Bull, who she wishes to establish care with. We reviewed her hospital course in detail and he has made a follow-up appointment with her on 02/19/2022. She has been educated on wound care and has several BSN's and a physician in her family, who she reports have agreed to assist her with the wound care. With the assistance of case management, home health was arranged. On 02/17/2022, she was seen on morning rounds and deemed medically stable for discharge. She was discharged with instructions to schedule follow-up appointments with her PCP (Dr. Bull), with Nephrology (Dr. Tran), and with Dr. Lang for wound care. She was provided prescriptions for insulin glargine and hydrocodone-acetaminophen. She was given the opportunity to ask questions and reported no further questions. Furthermore, all questions were answered to the best of my ability. Prior to the controlled substance prescription, a PDMP review was conducted. Over the last two years, she has received 1 controlled prescription, from 1 provider, to 1 pharmacy. Her opioid overdose risk score is 110. A copy of this discharge summary will be sent to the above providers to facilitate continuity of care. Today, I personally spent 45 minutes on her case, of which greater than 50% of the time was spent in patient education, counseling, and coordination of care as described above. - Physical Exam General: Alert, In no apparent distress, Oriented x3 HEENT: Atraumatic, PERRLA, Mucous membr. moist/pink, EOMI, Sclerae nonicteric Neck: Supple Respiratory: Clear to auscultation bilaterally, Normal air movement Cardiovascular: No edema, Regular rate/rhythm, Normal S1 S2, No gallops, No rubs, No murmurs Gastrointestinal: Normal bowel sounds, Soft and benign, Non-distended, No tenderness, No rebound, No guarding Musculoskeletal: No clubbing Integumentary: Wound evaluated alongside charge auditorTrixie. Perianal wound is clean, dry, and intact, without any obvious drainage. Neurological: Normal speech, Cranial nerves 3-12 intact, Normal affect Urinary: Nogueira catheter Vital Signs/Physical Exam: Temp Pulse Resp BP Pulse Ox 97.0 F 67 16 123/60 99 02/17/22 12:00 02/17/22 12:00 02/17/22 12:00 02/17/22 12:00 02/17/22 12:00 Laboratory Data at Discharge: WBC 10.40 K/uL (4.3-10.9) 02/14/22 07:45 Hgb 9.0 g/dL (12.0-15.0) L 02/14/22 07:45 Hct 26.6 % (36.0-45.0) L 02/14/22 07:45 Plt Count 247 K/uL (152-406) 02/14/22 07:45 PT 10.4 SECONDS (9.5-12.5) 02/02/22 23:35 INR 0.95 02/02/22 23:35 APTT 39.1 SECONDS (24.3-36.9) H 02/02/22 23:35 Sodium 141 mmol/L (136-145) 02/17/22 05:25 Potassium 3.4 mmol/L (3.5-5.1) L 02/17/22 05:25 BUN 12 mg/dL (7-18) 02/17/22 05:25 Creatinine 2.80 mg/dL (0.55-1.3) H 02/17/22 05:25 Glucose 83 mg/dL (74-106) 02/17/22 05:25 Phosphorus 3.8 mg/dL (2.5-4.9) 02/12/22 05:04 Magnesium 1.9 mg/dL (1.8-2.4) 02/11/22 04:30 Total Bilirubin 0.3 mg/dL (0.2-1.0) 02/13/22 09:28 AST 22 U/L (15-37) 02/13/22 09:28 ALT 29 U/L (12-78) 02/13/22 09:28 Alkaline Phosphatase 347 U/L (45-117) H 02/13/22 09:28 Triglycerides 268 mg/dL (<150) H 02/04/22 17:26 Cholesterol 129 mg/dL (<200) 02/04/22 17:26 LDL Cholesterol Direct 73 mg/dL (100-129) L 02/03/22 02:32 HDL Cholesterol 42 mg/dL (40-60) 02/04/22 17:26 Cholesterol/HDL Ratio 3.07 02/04/22 17:26 Home Medications: Clopidogrel Bisulfate [Plavix*] 75 mg PO DAILY #30 tablet 01/15/17 Cholecalciferol (Vitamin D3) [Vitamin D3] 5,000 unit PO DAILY 01/31/20 Gabapentin 300 mg PO BID 01/31/20 Ezetimibe 10 tab PO DAILY 02/03/22 Hydrocodone 5/APAP 325 [[place] 5/325*] 1 tab PO Q6H PRN 3 Days #12 tab 02/17/22 Insulin Glargine,Hum.rec.anlog [Semglee] 35 unit SQ NOON #10 ml 02/17/22 New Medications: Hydrocodone 5/APAP 325 [[place] 5/325*] 1 tab PO Q6H PRN 3 Days #12 tab PRN Reason: Pain Scale 8-10 (Severe) Insulin Glargine,Hum.rec.anlog [Semglee] 35 unit SQ NOON #10 ml Physician Discharge Instructions: 1. Please attend your appointment with your PCP (Dr. Bull) on 02/19/2022 2. Please call and schedule an appointment with Nephrology (Dr. Tran) in 5-7 days 3. Please call and schedule an appointment with Dr. Lang at [facility] in 5-7 days Diet: ADA Activity: Ad shantle Followup: Bill Tran [ACTIVE - CAN ADMIT] - Rodolfo Lang MD [ACTIVE - CAN ADMIT] - Rodrigo Bull DO [ACTIVE - CAN ADMIT] - Time spent managing pt's care (in minutes): 45
[2022-02-17 16:28] VITALS: BP 130/61; TEMP 97.5
--- NOTE | 2022-02-17 18:03 | PN ---
Subjective: The patient is doing much better. Denied any diarrhea. No fevers over weekend. Objective: Vital Signs: Temperature 97, pulse 69, respirations 16, blood pressure 138/66. Lungs: Clear to auscultation. Heart: S1, S2. Regular. Abdomen: Soft, nontender. Bowel sounds present. Extremity: Wound noted. Laboratory Data: Shows WBC 10.4, hemoglobin 9, platelets 247, BUN 12, creatinine 2.8. Assessment And Plan: 1.Perianal abscess, status post incision and drainage. The patient is doing better wound. The woun d still has some slough, 90% granulation tissue. 2.Renal failure. 3.Leukocytosis, improving. 4.History of stroke. Discontinue vancomycin as the patient does not have any MRSA. We will continue with Zosyn for anothe r 10 days and if necessary switch to oral antibiotic afterwards. Zosyn can be every 12 hours. Diflu can to be decreased to 100 mg daily. Discontinue vancomycin. Monitor kidney and kidney function. W BC count twice a week while the patient on antibiotics. We will follow the patient as needed. NF/MODL Voice ID: [id number] Report ID: [id number]
--- NOTE | 2022-02-17 19:09 | P.PN ---
Date of Service: 02/17/22 Vital Signs Temp Pulse Resp BP Pulse Ox 97.5 F 77 16 130/61 95 02/17/22 16:00 02/17/22 16:00 02/17/22 16:00 02/17/22 16:00 02/17/22 16:00 Microbiology Results 02/03/22 00:10 Blood - Blood Aerobic Blood Culture - Final No growth in 5 days. 02/03/22 00:10 Blood - Blood Anaerobic Blood Culture - Final 02/02/22 23:35 Blood - Blood Aerobic Blood Culture - Final No growth in 5 days. 02/02/22 23:35 Blood - Blood Anaerobic Blood Culture - Final No growth in 5 days. 02/03/22 00:39 Catheterized Urine [place]aine Count - Final No growth. 02/03/22 00:39 Catheterized Urine - Final No growth. Assessment/ Plan: Nephrology No dyspnea No chest pain Feeling better No acute events overnight Vitals, medications, blood work and imaging reviewed in the chart. NAD. NCAT. MMM. Neck supple. Normal respiratory effort. RRR. Abd ND. No C/C/E. No rash. AAO. Soft speech. Nogueira clear Stage II MARTINEZ CKD IIIb with proteinuria -No NSAIDs Hypernatremia -Encourage free water intake Hypokalemia -Replete as ordered Hypomagnesemia -Replete prn HypoPO4 -Replete prn -Encourage nutrition DM II with CKD DKA -Continue Lantus -RISS Hypoalbuminemia Severe malnutrition with anorexia Decreased functional ability -Encourage nutrition -Consider protein supplementation Anemia in chronic illness -Monitor H&H
[2022-02-17] MEDS ORDERED: PIPER TAZO 3.375 GM in NA CHLORIDE 0.9% 100 ML IV SCH (21:00)
== END 2022-02-17 17:15 | disposition home health service (06) | DRG 853 ==
LOC: ER 23:03 → ERHOLD 02-03 02:03 → 3RD-ICU 02-03 17:41 → 2ND 02-12 12:56
PROVIDERS: ADMIT Internal Medicine; ATTEND Internal Medicine
PROC: 02H633Z Insertion of Infusion Device into Right Atrium, Percutaneous Approach (ICD-10-PCS; 2022-02-04)
PROC: 0JBB0ZZ Excision of Perineum Subcutaneous Tissue and Fascia, Open Approach (ICD-10-PCS; principal; 2022-02-04 09:00)
DX: A41.9 Sepsis, unspecified organism (principal); E11.10 Type 2 diabetes mellitus with ketoacidosis without coma; G92.8 Other toxic encephalopathy; N17.0 Acute kidney failure with tubular necrosis; E43 Unspecified severe protein-calorie malnutrition; E87.3 Alkalosis; K61.1 Rectal abscess; E87.0 Hyperosmolality and hypernatremia; Z68.41 Body mass index [BMI] 40.0-44.9, adult; G72.81 Critical illness myopathy; R65.20 Severe sepsis without septic shock; G47.33 Obstructive sleep apnea (adult) (pediatric); E83.39 Other disorders of phosphorus metabolism; N18.30 Chronic kidney disease, stage 3 unspecified; E11.22 Type 2 diabetes mellitus with diabetic chronic kidney disease; E11.40 Type 2 diabetes mellitus with diabetic neuropathy, unspecified; D63.1 Anemia in chronic kidney disease; E83.42 Hypomagnesemia; D63.8 Anemia in other chronic diseases classified elsewhere; E88.09 Other disorders of plasma-protein metabolism, not elsewhere classified; E83.51 Hypocalcemia; E87.6 Hypokalemia; F17.200 Nicotine dependence, unspecified, uncomplicated; R31.29 Other microscopic hematuria; R63.0 Anorexia; R19.7 Diarrhea, unspecified; Z79.4 Long term (current) use of insulin; Z78.1 Physical restraint status; Z86.73 Personal history of transient ischemic attack (TIA), and cerebral infarction without residual deficits; Z91.14 Patient's other noncompliance with medication regimen; Z79.02 Long term (current) use of antithrombotics/antiplatelets; Z79.84 Long term (current) use of oral hypoglycemic drugs; Z90.49 Acquired absence of other specified parts of digestive tract; Z91.128 Patient's intentional underdosing of medication regimen for other reason; Z79.899 Other long term (current) drug therapy; Z91.040 Latex allergy status; Z89.422 Acquired absence of other left toe(s); Z20.822 Contact with and (suspected) exposure to COVID-19
CPT/HCPCS: 36415; 36569; 70450; 71045; 74018; 74176; 76770; 80048; 80053; 80061; 80202; 81003; 82010; 82140; 82607; 82805; 82947; 83036; 83605; 83735; 83935; 84100; 84132; 84134; 84300; 84443; 85025; 85610; 85730; 87040; 87070; 87075; 87086; 87088; 87205; 87324; 88304; 93005; 95816; 97116; 97161; 97530; 99285; A4216; J1630; J1650; J1815; J2001; J2270; J2370; J2405; J2543; J2704; J3010; J3370; J3411; J3475; J3480; J3590; J7030; J7040; J7050; J7120; J7799; U0003